=== PATIENT | male | born 1960 | race Caucasian/White ===

== ENCOUNTER 2020-08-07 12:53 | Emergency (ER) | payer OTHER, SELFPAY ==
[2020-08-07 13:14] VITALS: BP 170/100; PULSE 107; RESP 16; TEMP 36.7; O2SAT 97; BMI 29.3
--- NOTE | 2020-08-07 13:30 | XR_ITS ---
EXAMINATION: XR LUMBOSACRAL SPINE CLINICAL INFORMATION: Low back pain. COMPARISON: KUB of 07/04/2020, selected images of the abdomen and pelvic CT of 11/18/2019. TECHNIQUE: Three views of the lumbosacral spine. FINDINGS: There are 5 lumbar-type nonrib-bearing vertebrae. The vertebral body heights are maintained. Posterior fusion hardware at L5-S1 with intervertebral disc spacer is noted. There are 2 transpedicular screws at each level with vertical interlocking rods. The hardware is stable in appearance. No evidence of hardware loosening or fracture. Minimal posterior subluxation of L2 over L3 and of L3 or L4 is unchanged compared to last CT. Aortoiliac calcifications are noted. Maximum AP diameter of the calcified aorta at the level of L2 is 2.3 cm. Multilevel minimal anterior endplate hypertrophic spurring is noted. IMPRESSION: Stable postsurgical changes at L5-S1 without evidence of hardware loosening or hardware fracture. Minimal lumbar spondylosis at other levels. Vascular calcifications.
--- NOTE | 2020-08-07 13:37 | ED.BACK ---
HPI - Back Pain/Injury General Chief Complaint: Back Pain/Injury Stated Complaint: rt leg and back pain Time Seen by Provider: 08/07/20 13:30 Source: patient Mode of arrival: wheelchair Limitations: no limitations History of Present Illness HPI Narrative: 59 y/o with history of chronic back pain, history of laminectomy in 2009 presenting back to this ER with again worsening low back pain that started today. He was seen here on 07/17 for the same with the same descriptions of back locking up. He also reports acute onset of right calf pain and swelling and he has a history of DVT in the past. He is not on anticoagulation that he knows of. He denies trauma to either area. He has not taken anything for the pain. He states he is chronically prescribed oxy but it says it doesn't work. MD elicited complaint: back pain Pertinent past history: prior back pain and back surgery Onset (ago): day(s) (1) Timing: constant Severity: severe Similar Symptoms Previously: Yes Quality: sharp and aching Location: right lower back and left lower back Radiation: none Exacerbating factors: movement Relieving factors: none Associated symptoms: denies other symptoms Treatments prior to arrival: prescription analgesics Work related injury: No Related Data Previous Rx's Medication Instructions Recorded lisinopril 10 mg tablet 10 mg PO DAILY 90 Days #90 tab 08/02/20 oxycodone-acetaminophen 5 mg-325 1 tab PO Q8-12H PRN 15 Days #45 tab 08/02/20 mg tablet insulin lispro 100 unit/mL 3 - 4 unit SUBCUT TID 30 Days #6 ml 08/07/20 subcutaneous pen Allergies Allergy/AdvReac Type Severity Reaction Status Date / Time No Known Allergies Allergy Verified 08/07/20 13:16 [No Known Allergies*] nicotine AdvReac Unknown tachycardia, Verified 06/24/20 00:00 shaking N.K.D.A. Allergy Unknown Unknown Uncoded 08/07/20 13:16 Review of Systems Review of Systems: Constitutional: No Fever, No Chills Cardiovascular: No Chest Pain, No SOB Respiratory: No Cough, No Sputum, No Wheezing, No dyspnea Gastrointestinal: No Nausea, No Vomiting, No Diarrhea, No abdominal Pain Genitourinary: No Dysuria, No Urinary Frequency, No Hematuria, No incontinence Musculoskeletal: + joint pain, + Myalgias Skin: No Skin Lesions, No rash Neuro: No Weakness, No Numbness, No Dizziness, No Headache Psych: No Anxiety/Panic, No Depression Heme/Lymph: No Bruising, No Lymphadenopathy PMFSH Past Medical History Attestation statement: The following information was validated with the patient. Medical History Type 2 diabetes mellitus with diabetic polyneuropathy Social History Social History Advance Directives: No Advance Directives Information Provided: No Physical Exam Vital Signs: Vital Signs: Vital Signs Temp Pulse Resp BP Pulse Ox 08/07/20 13:14 98.0 F 107 H 16 170/100 H 97 Body Mass Index 29.3 Appearance: Alert. Oriented X3. No acute distress. HEENT: normal inspection CVS: Normal heart rate and rhythm. Pulses normal. Respiratory: No respiratory distress. Skin: Skin warm and dry. Normal skin color. Normal skin turgor. No rashes. Back: tender soft tissue area of bilateral lumbar area. no spinal tenderness. unable to test gait due to pain Extremities: right calf tenderness and mild edema of right RLE. +straight leg raise on the right Neuro: Oriented X 3. No motor deficit. No sensory deficit. Course Course Course Narrative: acute on chronic LBP without injury - seen at [facility] 08/02 and prescribed Percocet. He appears uncomfortable and exam is limited to due pain. Will give NSAID, tylenol, muscle relaxer and oxycodone now and reassess. Will also need to get RLE U/S to r/o DVT. Reevaluation(s) Reevaluation #1: patient all of the sudden reports he must leave immediately. Explained the importance of staying to find out the results of his U/S and X-ray. He states he has medications at home for his pain and he needs to go catch the buis now. Explained risk of DVT/PE and possible sudden . Patient left prior to d/c instructions being given. Discharge Plan Discharge Clinical Impression: Low back pain Qualifiers: Chronicity: acute Back pain laterality: bilateral Sciatica presence: without sciatica Qualified Code(s): M54.5 - Low back pain Patient Disposition: Left Against Medical Advice Instructions: Acute Low Back Pain (ED) Additional Instructions: You left against medical advice today. There is concern you may have a blood clot in your leg but you did not want to wait for the ultrasound results or the results of your X-rays. This could be life threatening and there is risk of with you leaving against medical advice. Take motrin and tylenol for pain/discomfort. Follow up with your doctor JAIME. You are welcome to come back to the ER for further evaluation of your pain Prescriptions: No Action lisinopril 10 mg tablet 10 mg PO DAILY 90 Days Qty: 90 RF: 0 oxycodone-acetaminophen [Percocet] 5-325 mg tablet 1 tab PO Q8-12H PRN (Reason: pain) 15 Days Qty: 45 RF: 0 insulin lispro [Admelog SoloStar U-100 Insulin] 100 unit/mL insulin pen 3 - 4 unit subcut TID 30 Days Qty: 6 RF: 0
[2020-08-07] MEDS: oxyCODONE HCl Immed Release 5 MG TABLET PO (13:40)
[2020-08-07] MEDS: Ketorolac Tromethamine 30 MG/ML VIAL IM (13:40)
[2020-08-07] MEDS: Acetaminophen 325 MG TABLET 975 MG PO (13:41)
[2020-08-07] MEDS: Cyclobenzaprine HCl 10 MG TABLET PO (13:41)
--- NOTE | 2020-08-07 14:37 | PC.NURSE ---
PT STATING HE WANTS TO LEAVE AND BE DISCHARGED. PT STATING WE ARE NOT DOING ANYTHING FOR HIM AND HE IS IN PAIN. PROVIDER NOTIFIED PT WANTS TO LEAVE AMA.
== END 2020-08-07 14:52 | disposition left against medical advice (07) ==
PROVIDERS: Emergency Provider Emergency Medicine; PCP Internal Medicine
DX: M54.5 Low back pain (principal); M54.9 Dorsalgia, unspecified; M79.604 Pain in right leg; Z79.899 Other long term (current) drug therapy
CPT/HCPCS: 72100; 96372; 99282; 99284; J1885

== ENCOUNTER 2020-09-23 12:27 | Outpatient (REF) | payer OTHER, SELFPAY ==
--- NOTE | 2020-09-23 12:34 | XR_ITS ---
EXAMINATION: XR PELVIS XR SI JOINTS, BILATERAL CLINICAL INFORMATION: Low back pain. COMPARISON: None TECHNIQUE: AP pelvis 1 view. Bilateral SI joints 3 views. FINDINGS: AP PELVIS: There is normal symmetry of bilateral hip joints and SI joints. No visible fracture involving the pelvic bones. There is L5 and S1 pedicular screws and interconnecting rods. There is likely L5-S1 disc prosthesis. BILATERAL SI JOINTS: The SI joint space is normal. No lytic or sclerotic process seen. The soft tissues are normal. XR/XR sacroiliac joint min 3V IMPRESSION: L5-S1 disc fusion with posterior hardware. Normal symmetry of SI joints and hip joints. No visible acute fracture or dislocation seen.
--- NOTE | 2020-09-23 12:34 | XR_ITS ---
EXAMINATION: XR PELVIS XR SI JOINTS, BILATERAL CLINICAL INFORMATION: Low back pain. COMPARISON: None TECHNIQUE: AP pelvis 1 view. Bilateral SI joints 3 views. FINDINGS: AP PELVIS: There is normal symmetry of bilateral hip joints and SI joints. No visible fracture involving the pelvic bones. There is L5 and S1 pedicular screws and interconnecting rods. There is likely L5-S1 disc prosthesis. BILATERAL SI JOINTS: The SI joint space is normal. No lytic or sclerotic process seen. The soft tissues are normal. XR/XR pelvis min 3V IMPRESSION: L5-S1 disc fusion with posterior hardware. Normal symmetry of SI joints and hip joints. No visible acute fracture or dislocation seen.
== END 2020-09-23 12:28 | disposition home or self-care (01) ==
LOC: HO.XRAY 12:27
PROVIDERS: PCP Internal Medicine; Visit Provider Internal Medicine
DX: M54.5 Low back pain (principal); R10.2 Pelvic and perineal pain
CPT/HCPCS: 72190; 72202

== ENCOUNTER 2020-10-21 13:58 | Outpatient (REF) | payer OTHER, SELFPAY | END 2020-10-21 13:59 | disposition home or self-care (01) | LOC: HO.LAB 13:58 | PROVIDERS: PCP Internal Medicine; Visit Provider Internal Medicine | DX: Z20.828 Contact with and (suspected) exposure to other viral communicable diseases (principal) | CPT/HCPCS: C9803; U0003 ==

== ENCOUNTER 2020-10-31 15:57 | Outpatient (REF) | payer OTHER, SELFPAY | END 2020-10-31 15:58 | disposition home or self-care (01) | LOC: HO.LAB 15:57 | PROVIDERS: Visit Provider Internal Medicine | DX: Z20.828 Contact with and (suspected) exposure to other viral communicable diseases (principal) | CPT/HCPCS: 36415; C9803; U0003 ==

== ENCOUNTER 2021-03-06 17:49 | Observation (INO) | payer OTHER, SELFPAY ==
--- NOTE | ~2021-03-06 | CT_ITS ---
EXAMINATION: CT ABDOMEN AND PELVIS WITHOUT CONTRAST CLINICAL INFORMATION: Fall with lower abdominal pain COMPARISON: 11/18/2019 TECHNIQUE: Multidetector volumetric imaging was performed from the superior aspect of the liver through the pubic symphysis. Sagittal and coronal reformatted images were obtained on the technologist's workstation. This CT examination was performed using dose optimization techniques as appropriate, variously including the following: *Automated exposure control *Adjustment of mA and/or kV according to patient size (this includes techniques or standardized protocols for targeted exams where dose is matched to indication/reason for exam; i.e. extremities or head) *Use of iterative reconstruction technique DLP: 642 mGy-cm FINDINGS: LUNG BASES: Lung bases are clear. Coronary artery calcifications are present. LIVER, GALLBLADDER, AND BILIARY TREE: The liver is normal in size, shape, and attenuation. No focal hepatic lesion or biliary ductal dilatation is present. The gallbladder is unremarkable with no evidence of radiopaque gallstones, gallbladder wall thickening, or obvious pericholecystic inflammatory changes. PANCREAS: Unremarkable. SPLEEN: Unremarkable. ADRENAL GLANDS: Unremarkable. KIDNEYS AND URETERS: The kidneys are normal in size, shape, and attenuation. Bilateral renal excretion associated with recent contrast-enhanced study. No hydronephrosis, hydroureter, or calculi seen. No perinephric stranding. Simple left renal cysts. The largest is seen at the midpole measuring 3.4 cm. No follow-up imaging recommended. BLADDER: Partially distended with no gross abnormality. GASTROINTESTINAL TRACT: The stomach is unremarkable. Normal caliber small bowel. There is no obstruction. Normal appendix. Scattered colonic diverticulosis. No diverticulitis. No colonic wall thickening or inflammation. No free air or free fluid. ABDOMINAL WALL: Small fat-containing left inguinal hernia. LYMPH NODES: Normal. VASCULAR: Normal caliber aorta with mild atherosclerotic calcification. PELVIC VISCERA: Enlarged prostate measuring 5.6 cm transverse. OSSEOUS STRUCTURES: No acute or suspicious osseous abnormality. Fusion at L5-S1. Mild degenerative changes of the spine. Vertebral body height and alignment is maintained. The pelvis is intact. No acute pelvic fracture. CT/CT abdomen pelvis wo con IMPRESSION: No acute traumatic findings in the abdomen or pelvis.
--- NOTE | ~2021-03-06 | CT_ITS ---
EXAMINATION: NONCONTRAST HEAD CT NONCONTRAST CERVICAL SPINE CT INDICATION INFORMATION: Fall COMPARISON: 01/18/2020 TECHNIQUE: Separate noncontrast CT examinations of the head and cervical spine were performed. Coronal and sagittal images were created for each examination at the technologist workstation. This CT examination was performed using dose optimization techniques as appropriate, variously including the following: *Automated exposure control *Adjustment of mA and/or kV according to patient size (this includes techniques or standardized protocols for targeted exams where dose is matched to indication/reason for exam; i.e. extremities or head) *Use of iterative reconstruction technique DLP: 1217 mGy-cm FINDINGS: Head: There is no evidence of acute intracranial hemorrhage or territorial infarction. No abnormal mass effect or midline shift is seen. Rondon to white matter differentiation is well preserved. No extra-axial fluid collections are identified. No hydrocephalus. Proportional prominence of the ventricles and sulcal spaces is consistent with mild volume loss. Patchy periventricular and deep white matter hypoattenuation is consistent with mild small vessel ischemic changes. No acute osseous or soft tissue abnormality. Small mucus retention cysts in both maxillary sinuses. The mastoid air cells and visualized portions of the paranasal sinuses are otherwise well aerated. Cervical spine: There is anatomic alignment of the vertebral bodies and posterior elements. The atlantoaxial and atlantooccipital articulations are intact. Vertebral body heights are maintained. Mild disc space narrowing at C5-C6 with small endplate osteophytes. No evidence of acute fracture. No prevertebral soft tissue swelling. Visualized portions of the lung apices are unremarkable. 1.6 cm hypoattenuating nodule in the left lobe of the thyroid gland. CT/CT cervical spine wo con IMPRESSION: 1. No acute intracranial finding. 2. No acute fracture or malalignment of the cervical spine. 3. 1.6 cm left thyroid lobe nodule. This can be further evaluated with nonemergent ultrasound.
--- NOTE | ~2021-03-06 | CT_ITS ---
EXAMINATION: CT ANGIOGRAM OF THE CHEST WITH AND WITHOUT CONTRAST (CT PULMONARY ANGIOGRAM FOR PE) CLINICAL INFORMATION: Reason for Exam chest pain with syncope COMPARISON: CTA chest 09/08/2019 TECHNIQUE: Prior to contrast administration, noncontrast localization images were obtained. Subsequently, multidetector volumetric imaging was performed from the thoracic inlet to below the diaphragms following the administration of 69 mL Omnipaque 350 intravenous contrast. No contrast reaction reported Sagittal, coronal, and MIP oblique sagittal reformatted images were obtained on the CT workstation, uploaded to PACS, and reviewed. This CT examination was performed using dose optimization techniques as appropriate, variously including the following: *Automated exposure control *Adjustment of mA and/or kV according to patient size (this includes techniques or standardized protocols for targeted exams where dose is matched to indication/reason for exam; i.e. extremities or head) *Use of iterative reconstruction technique Total exam dose-length product 346 mGy-cm FINDINGS: QUALITY OF STUDY/CONTRAST BOLUS: Suboptimal secondary to bolus as well as motion artifact. PULMONARY ARTERIES: There is a embolus present in a left lower lobe pulmonary artery 5 the posterior basal segment. No other definite emboli are seen. THORACIC AORTA: No aneurysm or dissection. LUNG: No focal consolidation, worrisome nodules or masses. Small pleural-based left upper lobe nodular density unchanged PLEURA: No pleural effusion or pneumothorax. MEDIASTINUM: Normal heart size. No pericardial effusion. No hilar or mediastinal lymphadenopathy. No evidence of septal bowing or right heart strain. CHEST WALL/AXILLA: No axillary or internal mammary lymphadenopathy. OSSEOUS STRUCTURES: No acute or suspicious osseous abnormality. UPPER ABDOMEN: Unremarkable. No reflux of contrast into the hepatic veins to suggest elevated right heart pressures. CT/CT angio chest PE protocol IMPRESSION: Left lower lobe pulmonary emboli VTE: positive An attempt will be made to contact the referring clinician with the results and when this has been done, an addendum will be issued.
[2021-03-06 18:13] VITALS: BP 155/72; PULSE 77; RESP 16; TEMP 36.9; O2SAT 98; BMI 28.0
[2021-03-06 18:20] VITALS: BP 155/72; PULSE 75; RESP 16; TEMP 36.6; O2SAT 98
--- NOTE | 2021-03-06 18:27 | ED_ITS ---
HPI - Syncope General Chief Complaint: Syncope Stated Complaint: syncope/chest discomfort Time Seen by Provider: 03/06/21 18:27 Source: patient Mode of arrival: EMS Limitations: no limitations History of Present Illness HPI narrative: Patient had a syncopal event. Patient took 3 NTG with chest pain and he passed out, no fecal or urinary incontinence MD complaint: loss of consciousness Onset (ago): minute(s) Prodromal symptoms: chest pain Context: standing up Injuries sustained associated with event: none Treatments prior to arrival: other (Patient took ASA and Ntg prior to arrival) Related Data Home Medications Medication Instructions Recorded Confirmed atorvastatin 40 mg tablet 40 mg PO BEDTIME 10/15/20 03/06/21 albuterol sulfate 2 puff INHALATION Q6H PRN 03/06/21 03/06/21 insulin glargine [Lantus Solostar 50 unit SUBCUT BEDTIME 03/06/21 03/06/21 U-100 Insulin] insulin lispro [Admelog SoloStar 0 unit SUBCUT TIDAC 03/06/21 03/06/21 U-100 Insulin] omeprazole 40 mg PO BID 03/06/21 03/06/21 oxycodone-acetaminophen 1 tab PO Q4H PRN 03/06/21 03/06/21 quetiapine 200 mg PO BEDTIME 03/06/21 03/06/21 Previous Rx's Medication Instructions Recorded metoprolol succinate 100 mg 100 mg PO DAILY #30 tab 08/28/20 tablet,extended release 24 hr nitroglycerin 0.4 mg sublingual 0.4 mg SUBLINGUAL Q5M PRN #10 tab 10/28/20 tablet blood sugar diagnostic #120 ea 12/11/20 lancets 28 gauge #100 ea 12/13/20 apixaban 5 mg tablet 5 mg PO BID #60 tab 01/03/21 aspirin 81 mg tablet,delayed 81 mg PO DAILY 90 Days #90 tab 02/17/21 release lisinopril 10 mg tablet 10 mg PO DAILY 90 Days #90 tab 02/17/21 Allergies Allergy/AdvReac Type Severity Reaction Status Date / Time nicotine AdvReac Unknown tachycardia, Verified 02/17/21 12:00 shaking Review of Systems Constitutional: Constitutional: Reports no additional constitutional complaints Eyes: Eyes: Reports no additional eye complaints ENT: Denies dizziness Cardiovascular: Cardiovascular: Reports no additional cardiovascular complaints Respiratory: Respiratory: Reports as per HPI Gastrointestinal: Gastrointestinal: Reports no additional gastrointestinal complaints Musculoskeletal: Musculoskeletal: Reports no additional musculoskeletal complaints Integumentary/Breasts: Skin/Breast: Denies rash Neurologic: Reports system reviewed and no additional complaints, except as documented, Denies dizziness and Denies Sensory deficit (Neuro) Psychiatric: Psychiatric: Denies anxiety [facility] Past Medical History Medical History Anxiety Benign essential hypertension CAD (coronary artery disease) Chest pain Deep vein thrombosis (DVT) of right lower extremity Depression Essential hypertension GERD (gastroesophageal reflux disease) Hx pulmonary embolism Hyperlipidemia LDL goal <100 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 COVID-19 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 Low back pain Lumbar degenerative disc disease Obesity (BMI 30-39.9) Onychomycosis Pelvic pain in male Proteinuria Pure hypercholesterolemia PVD (peripheral vascular disease) Sleep apnea Smoker 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 Surgical History H/O colonoscopy History of ankle surgery History of arthroplasty of left knee History of esophagogastroduodenoscopy (EGD) History of heart artery stent History of inguinal hernia repair History of knee surgery History of lumbar surgery Hx of cataract surgery Family History Family History Father Cancer Mother Diabetes Social History Social History Alcohol intake: never Smoking Status: Current every day smoker Tobacco Type: Cigarette Cigarettes Per Day: 15 Use of substances other than those prescribed or required for medical reasons: No Advance Directives: No Advance Directives Information Provided: No Physical Exam Vital Signs: Vital Signs: Last Vital Signs Temp 98 F 03/06/21 18:20 Pulse 68 03/06/21 19:51 Resp 20 03/06/21 19:51 BP 123/59 L 03/06/21 19:51 Pulse Ox 100 03/06/21 19:51 Body Mass Index 28.0 Const: General: healthy appearing Nutritional Appearance: average body habitus Orientation/consciousness: oriented to person and patient oriented x3 Limitations: no limitations HENMT: Head: Yes normal to inspection Ears: external ears normal General nose exam: Normal external nose present Mouth: Normal oral and palatal mucosa present and oropharynx normal Throat: Yes posterior oropharynx normal Eyes: General: appearance normal, both eyes and all related structures Neck: Other: supple Neck: Yes normal visual inspection Chest: Chest palpation & inspection: normal inspection of the chest Resp: Auscultation: clear to auscultation bilaterally Cardio: Jugular venous distension: no JVD Rate: regular rate Rhythm: regular rhythm Heart sounds: S1 normal heart sound present and S2 normal heart sound present GI: Inspection: Yes normal to inspection Palpation (GI): Soft to palpation, nontender and No hepatosplenomegaly present Auscultation: normal bowel sounds : General: Yes no CVA tenderness Back/Spine/Pelvis: Back: no CVA tenderness Skin: General skin exam: no rashes or lesions noted Neuro: General: oriented to person and patient oriented x3 Cranial nerves: Yes CN's II-XII intact bilaterally Motor exam (neuro): 5/5 motor strength present throughout Sensory Exam: No Sensory deficit (Neuro) Extrem: General: Yes normal to inspection Psych: Appearance: grossly normal Course Course Course Narrative: discussed with hospitalist will obtain chest CT for prior DVT PE. will admit to telemetry Reevaluation(s) Reevaluation #1: Patient positive for PE, will give lovenox Time: 22:35 MDM - Syncope MDM Narrative Medical decision making narrative: chest pain with CAD, HTN DM with chest pain and syncope with bring in for cardiac work up and rule out PE Lab Data Result diagrams: 03/06/21 18:57 03/06/21 18:57 Labs: Lab Results 03/06/21 03/06/21 03/06/21 Range/Units 18:57 18:57 18:57 WBC 9.0 (4.8-10.8) X10*3/uL RBC 3.72 L (4.60-5.80) X10*6/uL Hgb 10.7 L (14.0-18.0) g/dl Hct 32.2 L (42-52) % MCV 86.6 (80-98) fL MCH 28.8 (27.0-33.0) pg MCHC 33.2 (31.0-36.0) g/dl RDW 13.3 (11.0-16.0) % Plt Count 269 (160-400) X10*3/uL MPV 9.7 (9.4-12.4) fL Immature Gran % (Auto) 0.3 (0.0-0.4) % Neut % (Auto) 71.3 (45-73) % Lymph % (Auto) 19.1 L (20-40) % [place] % (Auto) 8.0 (2-11) % Eos % (Auto) 1.1 (0-4) % Baso % (Auto) 0.2 (0-2) % Lymph # (Auto) 1.7 (1.2-4.9) X10*3/uL [place] # (Auto) 0.7 (0.1-1.2) X10*3/uL Eos # (Auto) 0.1 (0.0-0.4) X10*3/uL Baso # (Auto) 0.0 (0.0-0.2) X10*3/uL Abs Immat Gran (auto) 0.03 (0.00-0.03) X10*3/uL Absolute Neuts (auto) 6.4 (2.0-8.3) X10*3/uL Absolute Nucleated RBC 0.000 (0.0-0.012) X10*3/uL Nucleated RBC % (auto) 0.0 (0.0-0.2) /100WBC Sodium 137 (135-145) mmol/L Potassium 3.8 (3.3-5.1) mmol/L Chloride 101 (96-108) mmol/L Carbon Dioxide 26 (22-29) mmol/L Anion Gap 14 (12-20) BUN 9 (9-16) mg/dL Creatinine 1.18 (0.5-1.4) mg/dL Estim Creat Clear Calc 73.3 Estimated GFR > 60 Random Glucose 149 H (60-115) mg/dL Calcium 8.7 (8.4-10.2) mg/dL Troponin I High Sens 4.7 (<3.5-35.0) ng/L COVID-19 (LILI) (Negative) COVID-19 Clin Com 03/06/21 03/06/21 Range/Units 20:39 21:38 WBC (4.8-10.8) X10*3/uL RBC (4.60-5.80) X10*6/uL Hgb (14.0-18.0) g/dl Hct (42-52) % MCV (80-98) fL MCH (27.0-33.0) pg MCHC (31.0-36.0) g/dl RDW (11.0-16.0) % Plt Count (160-400) X10*3/uL MPV (9.4-12.4) fL Immature Gran % (Auto) (0.0-0.4) % Neut % (Auto) (45-73) % Lymph % (Auto) (20-40) % [place] % (Auto) (2-11) % Eos % (Auto) (0-4) % Baso % (Auto) (0-2) % Lymph # (Auto) (1.2-4.9) X10*3/uL [place] # (Auto) (0.1-1.2) X10*3/uL Eos # (Auto) (0.0-0.4) X10*3/uL Baso # (Auto) (0.0-0.2) X10*3/uL Abs Immat Gran (auto) (0.00-0.03) X10*3/uL Absolute Neuts (auto) (2.0-8.3) X10*3/uL Absolute Nucleated RBC (0.0-0.012) X10*3/uL Nucleated RBC % (auto) (0.0-0.2) /100WBC Sodium (135-145) mmol/L Potassium (3.3-5.1) mmol/L Chloride (96-108) mmol/L Carbon Dioxide (22-29) mmol/L Anion Gap (12-20) BUN (9-16) mg/dL Creatinine (0.5-1.4) mg/dL Estim Creat Clear Calc Estimated GFR Random Glucose (60-115) mg/dL Calcium (8.4-10.2) mg/dL Troponin I High Sens 4.2 (<3.5-35.0) ng/L COVID-19 (LILI) Negative (Negative) COVID-19 Clin Com See Note Imaging Data CT scan - chest: Radiologist's impression: left lower PE ECG Data Attestation: I personally reviewed and interpreted this ECG as follows: Interpretation: Normal sinus rate 70, no st or twave changes Critical Care Time Critical Care Time Attestation: I spent 40 minutes of critical care, with interventions, assessments, speaking to patient, consultants, and family. Discharge Plan Discharge Clinical Impression: CAD (coronary artery disease), Pulmonary embolism Patient Disposition: Admitted As Inpatient
--- NOTE | 2021-03-06 18:29 | ECG_ITS ---
Test Reason : CHEST PAIN Blood Pressure : / mmHG Vent. Rate : 073 BPM Atrial Rate : 073 BPM P-R Int : 162 ms QRS Dur : 080 ms QT Int : 378 ms P-R-T Axes : 040 -37 -07 degrees QTc Int : 416 ms Normal sinus rhythm Left axis deviation Moderate voltage criteria for LVH, may be normal variant Nonspecific T wave abnormality Abnormal ECG When compared with ECG of 09-APR-2020 02:13, Borderline criteria for Lateral infarct are no longer Present T wave inversion now evident in Inferior leads QT has shortened Referred By: Jax Wilson Electronically Signed By:JONO SAMUEL MD
[2021-03-06] MEDS: Nitroglycerin 2 % Oint 1 GM Packet 1 INCH TRANSDERMA (19:01)
[2021-03-06 19:05] LABS: MANUAL DIFF FLAG NO
[2021-03-06 19:09] LABS: Basophils Percent Auto 0.2 % (0-2); Eosinophils Absolute Auto 0.1 X10*3/uL (0.0-0.4); Eosinophils Percent Auto 1.1 % (0-4); Hematocrit 32.2 % (42-52); Hemoglobin 10.7 g/dl (14.0-18.0); Imm Gran Abs Auto 0.03 X10*3/uL (0.00-0.03); Imm Gran Pct Auto 0.3 % (0.0-0.4); Lymphocytes Absolute Auto 1.7 X10*3/uL (1.2-4.9); Lymphocytes Percent Auto 19.1 % (20-40); Mean Corpuscular HGB Conc 33.2 g/dl (31.0-36.0); Mean Corpuscular Hemoglobin 28.8 pg (27.0-33.0); Mean Corpuscular Volume 86.6 fL (80-98); Mean Platelet Volume 9.7 fL (9.4-12.4); Monocytes Absolute Auto 0.7 X10*3/uL (0.1-1.2); Neutrophils Absolute Auto 6.4 X10*3/uL (2.0-8.3); Neutrophils Percent Auto 71.3 % (45-73); Platelet Count 269 X10*3/uL (160-400); Red Blood Count 3.72 X10*6/uL (4.60-5.80); Red Cell Distribution Width 13.3 % (11.0-16.0)
[2021-03-06 19:37] LABS: Anion Gap 14 (12-20); Blood Urea Nitrogen 9 mg/dL (9-16); Calcium 8.7 mg/dL (8.4-10.2); Carbon Dioxide 26 mmol/L (22-29); Chloride 101 mmol/L (96-108); Creatinine Clr Calc Pharmacy 73.3; Estimated Glomerular Filt Rate > 60; Glucose Random 149 mg/dL (60-115); Potassium 3.8 mmol/L (3.3-5.1); Sodium 137 mmol/L (135-145)
[2021-03-06 19:44] LABS: Troponin-I High Sensitivity 4.7 ng/L (<3.5-35.0)
[2021-03-06 19:51] VITALS: BP 123/59; PULSE 68; RESP 20; O2SAT 100
[2021-03-06 21:04] LABS: COVID-19 Test Negative (Negative)
[2021-03-06] MEDS: Ketorolac Tromethamine 15 MG/ML VIAL IVPUSH (21:08)
[2021-03-06] MEDS: iohexoL 350 MG/ML 100 ML INFUS..BTL IV (21:37)
--- NOTE | 2021-03-06 21:44 | P.HPHOSP_ITS ---
History of Present Illness Date of Service: 03/06/21 Chief Complaint: chest pain 60-year-old male a past medical history of hypertension, hyperlipidemia, diabetes, coronary artery disease, history of DVT/PE anticoagulation, peripheral vascular disease, history of chronic back pain/chronic lumbar degenerative disc disease; anxiety, depression presented to the hospital today with a chief complaint of chest pain. Patient reported that he had chest pain located in the center with tight in nature no associated nausea subsequently took sublingual nitroglycerin 3 tablets followed by he had a syncopal event. Denies any seizure-like activity. Denies any lightheadedness or dizziness. Denies any numbness tingling. At the time of my interview patient denies any chest pain. Review of all other systems is negative except mentioned above ER course: Per ER team patient's EKG was nonischemic, troponin negative. CT angio chest was pending. Exam was nonfocal. Given aspirin. Admitted to the hospital for further management. 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 Family History Father Cancer Mother Diabetes Surgical History H/O colonoscopy History of ankle surgery History of arthroplasty of left knee History of esophagogastroduodenoscopy (EGD) History of heart artery stent History of inguinal hernia repair History of knee surgery History of lumbar surgery Hx of cataract surgery Social History (Updated 03/17/21 @ 10:27 by Anitha Rios) Alcohol intake: current Alcohol intake frequency: holidays/special occasions only Alcohol type: beer Smoking Status: Current every day smoker Tobacco Type: Cigarette Years Smoked: 45 Smoked in Last 30 Days: Yes Use of substances other than those prescribed or required for medical reasons: No Advance Directives: Yes Advance Directives on File: Yes Advance Directives Date on File: 03/07/21 service: No Current occupational status: unemployed Meds Allergies Allergy/AdvReac Type Severity Reaction Status Date / Time nicotine AdvReac Unknown tachycardia, Verified 03/17/21 14:21 shaking Active Medications: Current Medications Generic Name Dose Route Start Last Admin Trade Name Freq PRN Reason Stop Dose Admin Acetaminophen 650 mg 03/06/21 21:42 Acetaminophen 325 Mg Tablet PO Q6H PRN Pain, Mild (Pain Scale 1-3) Albuterol/Ipratropium 3 ml 03/07/21 08:00 Albuterol/Iprat 2.5/0.5mg 3 Ml Ampul.Neb INHALE RQ4H WHILE AWAKE SUSANNAH Magnesium Hydroxide 30 ml 03/06/21 21:42 Milk Of Magnesia 30 Ml Oral.Susp PO DAILY PRN Constipation Nitroglycerin 0.4 mg 03/06/21 21:42 Nitroglycerin 0.4 Mg Tab.Subl SUBLINGUAL Q5M PRN Chest Pain Sodium Chloride 3 ml 03/07/21 00:00 0.9 % Sodium Chloride Flush 3 Ml Syringe IVFLUSH QSHIFT [facility] Home Medications Medication Instructions Recorded Confirmed Last Taken Type atorvastatin 40 mg tablet 40 mg PO BEDTIME 10/15/20 03/17/21 Unknown History Lantus Solostar U-100 Insulin 50 unit SUBCUT BEDTIME 03/06/21 03/17/21 03/05/21 History albuterol sulfate 2 puff INHALATION Q6H PRN 03/06/21 03/17/21 Unknown History insulin lispro [Admelog SoloStar 0 unit SUBCUT TIDAC 03/06/21 03/17/21 Unknown History U-100 Insulin] omeprazole 40 mg PO BID 03/06/21 03/17/21 Unknown History quetiapine 200 mg PO BEDTIME 03/06/21 03/17/21 Unknown History apixaban 5 mg tablet 5 mg PO BID 03/12/21 03/17/21 Unknown History Physical Exam Vital Signs and Narrative: Vital Signs: Last Vital Signs Temp 98 F 03/06/21 18:20 Pulse 68 03/06/21 19:51 Resp 20 03/06/21 19:51 BP 123/59 L 03/06/21 19:51 Pulse Ox 100 03/06/21 19:51 Body Mass Index 28.0 Gen: Appears be in no acute distress HEENT: NCAT, Moist mucosa. Pulmonary: Vesicular breath sounds, fair air entry CVS: Normal S1-S2 Abdomen: BS+, Soft, Nontender Extremities: Warm well perfused Neuro: Alert and awake. Results Labs CBC and Chem 7: 03/07/21 05:07 03/07/21 05:07 Labs: Laboratory Results - last 24 hr 03/06/21 03/06/21 03/06/21 18:57 18:57 18:57 MCV 86.6 MCH 28.8 MCHC 33.2 RDW 13.3 Plt Count 269 MPV 9.7 Immature Gran % (Auto) 0.3 Neut % (Auto) 71.3 Lymph % (Auto) 19.1 L [place] % (Auto) 8.0 Eos % (Auto) 1.1 Baso % (Auto) 0.2 Lymph # (Auto) 1.7 [place] # (Auto) 0.7 Eos # (Auto) 0.1 Baso # (Auto) 0.0 Abs Immat Gran (auto) 0.03 Absolute Neuts (auto) 6.4 Absolute Nucleated RBC 0.000 Nucleated RBC % (auto) 0.0 Anion Gap 14 Estim Creat Clear Calc 73.3 Estimated GFR > 60 Random Glucose 149 H Calcium 8.7 Troponin I High Sens 4.7 COVID-19 (LILI) COVID-19 Clin Com 03/06/21 20:39 MCV MCH MCHC RDW Plt Count MPV Immature Gran % (Auto) Neut % (Auto) Lymph % (Auto) [place] % (Auto) Eos % (Auto) Baso % (Auto) Lymph # (Auto) [place] # (Auto) Eos # (Auto) Baso # (Auto) Abs Immat Gran (auto) Absolute Neuts (auto) Absolute Nucleated RBC Nucleated RBC % (auto) Anion Gap Estim Creat Clear Calc Estimated GFR Random Glucose Calcium Troponin I High Sens COVID-19 (LILI) Negative COVID-19 Clin Com See Note Assessment and Plan (1) Chest pain: Status: Resolved 60-year-old male with a past medical history of hypertension, hyperlipidemia, diabetes, coronary artery disease status post stents, tobacco dependence, peripheral vascular disease, history of DVT/PE, anxiety, depression, GERD presented to the hospital with a chief complaint of chest pain/syncope. Chest pain: Currently improved. EKG nonischemic. Initial troponin negative. Second troponin pending. Echocardiogram. Cardiology consult. Syncope: Likely vasovagal versus secondary to hypertension upper sublingual nitroglycerin. Orthostatic vitals. Nonfocal examination. Fall precautions. Cardiology consulted as mentioned. Fall: pt reportas that he fell on floor when syncopized; karen obtian CT head, Ct c spine and also CT abd- as complaining of lower abd pain. History of diabetes: Insulin sliding scale. History of hypertension/hyperlipidemia/CAD: Continue home medications. History of DVT: pt was on Eliquis. No CT chest showed left lower lobe PE; s/w Lovenox; Hematology consult for choice of therapy. All other chronic conditions, home medications will be continued once med rec is done. DVT prophylaxis: Patient on lovenox Code status: Full code
[2021-03-06 22:17] LABS: Troponin-I High Sensitivity 4.2 ng/L (<3.5-35.0)
--- NOTE | 2021-03-06 22:52 | PC.NURSE ---
PT REFUSING VITAL SIGNS AND MEDICATIONS, PT COMBATIVE WITH NURSING STAFF. NURSING STAFF EDUCATED PT ON THE IMPORTANCE OF REGULAR MONITORING AND MEDICATIONS. PT TOLD RN TO GET THE HELL OUT OF HIS ROOM
[2021-03-06 23:44] LABS: Partial Thromboplastin Time 37.3 SEC (24.1-38.0)
[2021-03-07] VITALS (12 sets, daily range): BP systolic 140–208; BP diastolic 60–91; PULSE 56–72; RESP 16–20; TEMP 36.5–36.6; O2SAT 95–99; BMI 29.2
--- NOTE | 2021-03-07 | ECG_ITS ---
Test Reason : RUCOOKIEE JOSH Blood Pressure : / mmHG Vent. Rate : 058 BPM Atrial Rate : 058 BPM P-R Int : 166 ms QRS Dur : 082 ms QT Int : 416 ms P-R-T Axes : 040 -30 -18 degrees QTc Int : 408 ms Sinus bradycardia Left axis deviation Minimal voltage criteria for LVH, may be normal variant Nonspecific T wave abnormality Abnormal ECG When compared with ECG of 06-MAR-2021 18:51, No significant change was found Referred By: Jax Wilson Electronically Signed By:JONO SAMUEL MD
--- NOTE | 2021-03-07 01:14 | PC.NURSE ---
PT STILL REFUSING VITAL SIGNS, RUDE AND AGGRESSIVE TOWARD STAFF WHENEVER RN ATTEMPTS TO TREAT OR ASSESS PT. PT REFUSING EDUCATION, NOT COOPERATIVE, REFUSES TO STAY IN BED, REFUSES ASSISTANCE WHILE AMBULATING.
[2021-03-07] MEDS: Enoxaparin Sodium 100 MG/ML SYRINGE 85 MG SUBCUT ×3 (02:47→23:08)
[2021-03-07] MEDS: Morphine Sulfate 2 MG/ML CARTRIDGE 1 MG IVPUSH ×4 (02:47→20:41)
[2021-03-07] MEDS: HYDROmorphone HCl 0.5 MG/0.5 ML SYRINGE IVPUSH (04:54)
[2021-03-07 04:58] LABS: Glucose, Whole Blood 262 mg/dL (60-115)
[2021-03-07] MEDS: Insulin Lispro 100 UNIT/ML 3 ML VIAL SUBCUT ×4 (05:06→20:47)
--- NOTE | 2021-03-07 05:07 | PC.NURSE ---
pt awake and asking for pain medication for his abdomen. hospitalist called and aware, ordered medication and wants ct of neck and abdomen. pt agreed to change into hospital clothing. also brought a hospital bed for comfort, pt has back pain from er matress.
[2021-03-07 05:13] LABS: MANUAL DIFF FLAG NO
[2021-03-07 05:16] LABS: Basophils Percent Auto 0.1 % (0-2); Eosinophils Absolute Auto 0.1 X10*3/uL (0.0-0.4); Eosinophils Percent Auto 1.6 % (0-4); Hematocrit 32.2 % (42-52); Hemoglobin 10.7 g/dl (14.0-18.0); Imm Gran Abs Auto 0.04 X10*3/uL (0.00-0.03); Imm Gran Pct Auto 0.5 % (0.0-0.4); Lymphocytes Percent Auto 22.1 % (20-40); Mean Corpuscular HGB Conc 33.2 g/dl (31.0-36.0); Mean Corpuscular Hemoglobin 28.5 pg (27.0-33.0); Mean Corpuscular Volume 85.6 fL (80-98); Mean Platelet Volume 9.5 fL (9.4-12.4); Monocytes Absolute Auto 0.7 X10*3/uL (0.1-1.2); Monocytes Percent Auto 8.3 % (2-11); Neutrophils Percent Auto 67.4 % (45-73); Platelet Count 264 X10*3/uL (160-400); Red Blood Count 3.76 X10*6/uL (4.60-5.80); Red Cell Distribution Width 13.2 % (11.0-16.0); White Blood Count 8.9 X10*3/uL (4.8-10.8)
[2021-03-07 05:40] LABS: Anion Gap 13 (12-20); Blood Urea Nitrogen 11 mg/dL (9-16); Calcium 8.6 mg/dL (8.4-10.2); Carbon Dioxide 26 mmol/L (22-29); Chloride 99 mmol/L (96-108); Estimated Glomerular Filt Rate 54; Glucose Random 285 mg/dL (60-115); Potassium 3.9 mmol/L (3.3-5.1); Sodium 134 mmol/L (135-145)
[2021-03-07 05:45] LABS: Troponin-I High Sensitivity 4.6 ng/L (<3.5-35.0)
--- NOTE | 2021-03-07 07:45 | PC.NURSE ---
pt given morphine on previous shift at 0247, pt stated he had some effectiveness so hydromorphone was given at 0454, pt stated his is comfortable at this time
[2021-03-07 08:42] LABS: Glucose, Whole Blood 213 mg/dL (60-115)
[2021-03-07] MEDS: Aspirin Enteric Coated 81 MG TABLET.DR PO (08:50)
[2021-03-07] MEDS: Metoprolol Succinate ER 100 MG TAB.ER.24H PO (08:50)
[2021-03-07] MEDS: Omeprazole 40 MG CAPSULE.DR PO ×2 (08:50→20:31)
[2021-03-07] MEDS: lisinopriL 10 MG TABLET PO ×2 (08:52→14:02)
--- NOTE | 2021-03-07 09:12 | P.CNHO_ITS ---
Subjective - Subjective Chief complaint: Consult for left lower lobe PE. History of DVT Patient: new to practice Consult date: 03/07/21 Requesting Physician: Juan. Primary Care Provider: Cecilio De Paz MD Medical Summary: DIAGNOSIS: LEFT LOWER LOBE PE. HISTORY OF DVT. HPI - Consult Narrative Reason for consult: Consult for left lower lobe PE. History of DVT. Narrative: Matty Smith SR is a pleasant 60 year old gentleman, presented to the hospital today with a chief complaint of chest pain. Patient reported that he had chest pain located in the center with tight in nature no associated nausea subsequently took sublingual nitroglycerin 3 tablets followed by he had a syncopal event. Denies any seizure-like activity. Denies any lightheadedness or dizziness. Denies any numbness tingling. At the time of my interview patient denies any chest pain. Review of all other systems is negative except mentioned above Exam was nonfocal. Given aspirin. ER course: Per ER team patient's EKG was nonischemic, troponin negative. CT angio chest: Left lower lobe pulmonary emboli. PMFSH: 1. Hypertension. 2. Hyperlipidemia. 3. Diabetes. 4. Coronary artery disease. 5. History of DVT/PE anticoagulation. 6. Peripheral vascular disease. 7. History of chronic back pain/chronic lumbar degenerative disc disease. 8. Anxiety and depression. ROS: He does feel rather fatigued. No fever nor chills. Appetite is fair. Weight is stable. Denies headache no dizziness. He had some chest pain. That is resolved. Denies abdominal pain nausea vomiting heartburn indigestion. Bowels are working without any gross blood in it. No dysuria or hematuria. He has some joint pains. Denies any focal weakness. Denies depression. Review of Systems - Constitutional Reports system reviewed and no additional complaints, except as documented - Eyes Reports system reviewed and no additional complaints, except as documented - ENT Reports system reviewed and no additional complaints, except as documented - Cardiovascular Reports system reviewed and no additional complaints, except as documented, Reports chest pain - Respiratory Reports no additional respiratory complaints - Gastrointestinal Reports system reviewed and no additional complaints, except as documented - Genitourinary Genitourinary: Reports no additional male genitourinary complaints - Musculoskeletal Reports system reviewed and no additional complaints, except as documented - Integumentary/Breasts Skin/Breast: Reports no additional skin complaints - Neurologic Reports system reviewed and no additional complaints, except as documented, Denies dizziness, Denies sensory deficit - Psychiatric Reports system reviewed and no additional complaints, except as documented - Endocrine Reports no additional endocrine complaints - Hematologic/Lymphatic Reports system reviewed and no additional complaints, except as documented - Allergic/Immunologic Reports system reviewed and no additional complaints, except as documented Oncology Screenings - ECOG Performance Status ECOG Performance Status: 0 [facility] Medical History: Medical History (Last Reviewed 03/07/21 @ 13:28 by Carol Butler RN) Anxiety Benign essential hypertension CAD (coronary artery disease) Chest pain Deep vein thrombosis (DVT) of right lower extremity Depression Essential hypertension GERD (gastroesophageal reflux disease) Hx pulmonary embolism Hyperlipidemia LDL goal <100 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 COVID-19 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 Low back pain Lumbar degenerative disc disease Obesity (BMI 30-39.9) Onychomycosis Pelvic pain in male Proteinuria Pure hypercholesterolemia PVD (peripheral vascular disease) Sleep apnea Smoker 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 Family History: Family History (Last Reviewed 03/06/21 @ 18:31 by Desmond Leigh MD) Father Cancer Mother Diabetes Surgical History: Surgical History (Last Reviewed 03/07/21 @ 13:28 by Carol Butler RN) H/O colonoscopy History of ankle surgery History of arthroplasty of left knee History of esophagogastroduodenoscopy (EGD) History of heart artery stent History of inguinal hernia repair History of knee surgery History of lumbar surgery Hx of cataract surgery Social History: Social History (Last Reviewed 03/06/21 @ 18:31 by Desmond Leigh MD) Alcohol History: Alcohol intake: never Tobacco History: Smoking Status: Current every day smoker Tobacco Type: Cigarette Advance Directives: Advance Directives Date on File: 03/07/21 Occupation Assessmet: service: No Current occupational status: unemployed Smoking status: Current every day smoker Home Medications and Allergies Current Medications: Current Medications Generic Name Dose Route Start Last Admin Trade Name Freq PRN Reason Stop Dose Admin Acetaminophen 650 mg 03/06/21 21:42 Acetaminophen 325 Mg Tablet PO Q6H PRN Pain, Mild (Pain Scale 1-3) Albuterol Sulfate 2 puff 03/07/21 02:23 Albuterol Sulfate 90 Mcg 8 Gm Inhaler INHALE Q6H PRN Respiratory Distress Albuterol/Ipratropium 3 ml 03/07/21 08:00 Albuterol/Iprat 2.5/0.5mg 3 Ml Ampul.Neb INHALE RQ4H WHILE AWAKE [facility] Aspirin 81 mg 03/07/21 09:00 03/07/21 08:50 Aspirin Enteric Coated 81 Mg Tablet. PO 81 mg DAILY [facility] Administration Enoxaparin Sodium 85 mg 03/06/21 23:00 03/07/21 02:47 Enoxaparin Sodium 100 Mg/Ml Syringe 1 mg/kg (85 mg) 85 mg SUBCUT Administration Q12H [facility] Insulin Glargine 30 unit 03/07/21 21:00 Insulin Glargine,Hum.Rec.Anlog 100 Unit/Ml 10 Ml Vial SUBCUT BEDTIME [facility] Insulin Human Lispro 0 unit 03/07/21 07:30 03/07/21 05:06 Insulin Lispro 100 Unit/Ml 3 Ml Vial SUBCUT 6 unit QIDACHS [facility] Administration Protocol Lisinopril 10 mg 03/07/21 09:00 03/07/21 08:52 Lisinopril 10 Mg Tablet PO 10 mg DAILY [facility] Administration Protocol Magnesium Hydroxide 30 ml 03/06/21 21:42 Milk Of Magnesia 30 Ml Oral.Susp PO DAILY PRN Constipation Metoprolol Succinate 100 mg 03/07/21 09:00 03/07/21 08:50 Metoprolol Succinate Er 100 Mg Tab.Er.24h PO 100 mg DAILY [facility] Administration Protocol Morphine Sulfate 1 mg 03/07/21 02:18 03/07/21 02:47 Morphine Sulfate 2 Mg/Ml Cartridge IVPUSH 1 mg Q4H PRN Administration Chest Pain Nitroglycerin 0.4 mg 03/06/21 21:42 Nitroglycerin 0.4 Mg Tab.Subl SUBLINGUAL Q5M PRN Chest Pain Omeprazole 40 mg 03/07/21 09:00 03/07/21 08:50 Omeprazole 40 Mg Capsule. PO 40 mg BID [facility] Administration Pharmacy Consult 1 each 03/06/21 22:00 Consult Rx Perform Med Rec MISCELLANE ONCE PRN Consult order Quetiapine Fumarate 200 mg 03/07/21 21:00 Quetiapine Fumarate 200 Mg Tablet PO BEDTIME [facility] Sodium Chloride 3 ml 03/07/21 00:00 03/07/21 01:16 0.9 % Sodium Chloride Flush 3 Ml Syringe IVFLUSH Not Given QSHIFT [facility] Home Medications Medication Instructions Recorded Confirmed Type atorvastatin 40 mg tablet 40 mg PO BEDTIME 10/15/20 03/06/21 History Lantus Solostar U-100 Insulin 50 unit SUBCUT BEDTIME 03/06/21 03/06/21 History albuterol sulfate 2 puff INHALATION Q6H PRN 03/06/21 03/06/21 History insulin lispro [Admelog SoloStar 0 unit SUBCUT TIDAC 03/06/21 03/06/21 History U-100 Insulin] omeprazole 40 mg PO BID 03/06/21 03/06/21 History oxycodone-acetaminophen 1 tab PO Q4H PRN 03/06/21 03/06/21 History quetiapine 200 mg PO BEDTIME 03/06/21 03/06/21 History Allergies Allergy/AdvReac Type Severity Reaction Status Date / Time nicotine AdvReac Unknown tachycardia, Verified 02/17/21 12:00 shaking Physical Exam Vital signs: Vital Signs Temp 98 F 03/06/21 18:20 Pulse 72 03/07/21 08:52 Resp 16 03/07/21 04:59 BP 160/81 H 03/07/21 08:52 Pulse Ox 96 03/07/21 04:59 Intake & Output 03/06/21 03/07/21 03/07/21 18:59 06:59 18:59 Other: Weight 86.183 kg Weight 86.183 kg - Constitutional Present: mild distress - Routine HEENT Exam Head: Present: normal inspection ENT: Present: mucous membranes moist - Routine Neck Exam Present: supple - Routine Respiratory Exam Present: CTAB - Routine Cardiovascular Exam Cardiovascular: Present: RRR, S1, S2 - Routine Abdominal Exam Present: soft, nontender - Routine Rectal Exam Patient deferred: digital exam - Routine Extremities Exam Present: nontender - Routine Back/Spine/Pelvis Exam Back/Spine: Present: full ROM Hem/Onc Consult Result - Labs CBC & Chem 7: 03/07/21 05:07 03/07/21 05:07 Labs: Short CBC 03/06/21 03/07/21 Range/Units 18:57 05:07 WBC 9.0 8.9 (4.8-10.8) X10*3/uL Hgb 10.7 L 10.7 L (14.0-18.0) g/dl Hct 32.2 L 32.2 L (42-52) % Plt Count 269 264 (160-400) X10*3/uL BMP 03/06/21 03/07/21 18:57 05:07 Sodium 137 134 L Potassium 3.8 3.9 Chloride 101 99 Carbon Dioxide 26 26 BUN 9 11 Creatinine 1.18 1.35 Calcium 8.7 8.6 Assessment and Plan (1) Pulmonary embolism Status: Acute Qualifiers: Pulmonary embolism type: single subsegmental (without acute cor pulmonale) Qualified Code(s): I26.93 - Single subsegmental pulmonary embolism without acute cor pulmonale This is a pleasant 60-year-old gentleman who has been admitted with left lower lobe PE. He has a prior history of DVT and left lower lobe PE as well. He now has a recurrence. This happened on therapeutic anticoagulation. Patient was already on Eliquis. This means he failed Eliquis. PLAN: I would recommend Lovenox therapy, 1 milligram/kilogram q.12 dose. Will continue to monitor. Can follow him on an outpatient basis. Thank you, CC: Dr. Wade.
--- NOTE | 2021-03-07 10:23 | P.CONCA_ITS ---
History of Present Illness History of Present Illness Date of Service: 03/07/21 Requesting physician: Hanh Wade Chief complaint: Chest pain/syncope Narrative: 60-year-old gentleman with background history of tobacco abuse, hyperlipidemia, hypertension and coronary artery disease with single-vessel PCI in the past. He follows with Dr. Sainz. Is presenting for sharp left-sided chest pain ongoing for few days. He denies any shortness of breath. He said he took 3 nitroglycerin and then passed out. He has been diagnosed with left-sided pulmonary embolism. Denies any exertional shortness of breath or worsening of chest discomfort. The chest pain is not pleuritic. He is saying that he had similar pain when he had PCI done in the past. This pain has been persistent with normal troponin levels. 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 Low back pain Lumbar degenerative disc disease Obesity (BMI 30-39.9) Onychomycosis Pelvic pain in male Proteinuria Pure hypercholesterolemia PVD (peripheral vascular disease) Sleep apnea Smoker 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 Family History Family History Father Cancer Mother Diabetes Surgical History Surgical History H/O colonoscopy History of ankle surgery History of arthroplasty of left knee History of esophagogastroduodenoscopy (EGD) History of heart artery stent History of inguinal hernia repair History of knee surgery History of lumbar surgery Hx of cataract surgery Social History Social History Alcohol intake: never Smoking Status: Current every day smoker Tobacco Type: Cigarette Use of substances other than those prescribed or required for medical reasons: No Advance Directives: No Advance Directives Information Provided: No Meds Allergies Allergy/AdvReac Type Severity Reaction Status Date / Time nicotine AdvReac Unknown tachycardia, Verified 02/17/21 12:00 shaking Active Medications: Current Medications Generic Name Dose Route Start Last Admin Trade Name Freq PRN Reason Stop Dose Admin Acetaminophen 650 mg 03/06/21 21:42 Acetaminophen 325 Mg Tablet PO Q6H PRN Pain, Mild (Pain Scale 1-3) Albuterol Sulfate 2 puff 03/07/21 02:23 Albuterol Sulfate 90 Mcg 8 Gm Inhaler INHALE Q6H PRN Respiratory Distress Albuterol/Ipratropium 3 ml 03/07/21 08:00 Albuterol/Iprat 2.5/0.5mg 3 Ml Ampul.Neb INHALE RQ4H WHILE AWAKE [facility] Aspirin 81 mg 03/07/21 09:00 03/07/21 08:50 Aspirin Enteric Coated 81 Mg Tablet.Dr PO 81 mg DAILY [facility] Administration Enoxaparin Sodium 85 mg 03/06/21 23:00 03/07/21 02:47 Enoxaparin Sodium 100 Mg/Ml Syringe 1 mg/kg (85 mg) 85 mg SUBCUT Administration Q12H [facility] Insulin Glargine 30 unit 03/07/21 21:00 Insulin Glargine,Hum.Rec.Anlog 100 Unit/Ml 10 Ml Vial SUBCUT BEDTIME [facility] Insulin Human Lispro 0 unit 03/07/21 07:30 03/07/21 05:06 Insulin Lispro 100 Unit/Ml 3 Ml Vial SUBCUT 6 unit QIDACHS [facility] Administration Protocol Lisinopril 10 mg 03/07/21 09:00 03/07/21 08:52 Lisinopril 10 Mg Tablet PO 10 mg DAILY [facility] Administration Protocol Magnesium Hydroxide 30 ml 03/06/21 21:42 Milk Of Magnesia 30 Ml Oral.Susp PO DAILY PRN Constipation Metoprolol Succinate 100 mg 03/07/21 09:00 03/07/21 08:50 Metoprolol Succinate Er 100 Mg Tab.Er.24h PO 100 mg DAILY [facility] Administration Protocol Morphine Sulfate 1 mg 03/07/21 02:18 03/07/21 09:13 Morphine Sulfate 2 Mg/Ml Cartridge IVPUSH 1 mg Q4H PRN Administration Chest Pain Nitroglycerin 0.4 mg 03/06/21 21:42 Nitroglycerin 0.4 Mg Tab.Subl SUBLINGUAL Q5M PRN Chest Pain Omeprazole 40 mg 03/07/21 09:00 03/07/21 08:50 Omeprazole 40 Mg Capsule. PO 40 mg BID [facility] Administration Pharmacy Consult 1 each 03/06/21 22:00 Consult Rx Perform Med Rec MISCELLANE ONCE PRN Consult order Quetiapine Fumarate 200 mg 03/07/21 21:00 Quetiapine Fumarate 200 Mg Tablet PO BEDTIME [facility] Sodium Chloride 3 ml 03/07/21 00:00 03/07/21 01:16 0.9 % Sodium Chloride Flush 3 Ml Syringe IVFLUSH Not Given QSHIFT [facility] Home Medications Medication Instructions Recorded Confirmed Last Taken Type atorvastatin 40 mg tablet 40 mg PO BEDTIME 10/15/20 03/06/21 Unknown History albuterol sulfate 2 puff INHALATION Q6H PRN 03/06/21 03/06/21 Unknown History insulin glargine [Lantus Solostar 50 unit SUBCUT BEDTIME 03/06/21 03/06/21 03/05/21 History U-100 Insulin] insulin lispro [Admelog SoloStar 0 unit SUBCUT TIDAC 03/06/21 03/06/21 Unknown History U-100 Insulin] omeprazole 40 mg PO BID 03/06/21 03/06/21 Unknown History oxycodone-acetaminophen 1 tab PO Q4H PRN 03/06/21 03/06/21 Unknown History quetiapine 200 mg PO BEDTIME 03/06/21 03/06/21 Unknown History Physical Exam Vital Signs: Vital Signs: Last Vital Signs Temp 98 F 03/06/21 18:20 Pulse 72 03/07/21 08:52 Resp 16 03/07/21 04:59 BP 160/81 H 03/07/21 08:52 Pulse Ox 96 03/07/21 04:59 Body Mass Index 28.0 GENERAL APPEARANCE: in no acute distress, pleasant. NECK: no carotid bruit, no jugular venous distention. SKIN: no suspicious lesions, warm and dry. HEART: no murmurs, regular rate and rhythm. LUNGS: clear to auscultation bilaterally. ABDOMEN: soft, nontender. EXTREMITIES: no edema. PERIPHERAL PULSES: equal. NEUROLOGIC: No gross deficits, AAO X 3 Results Labs and Meds Result diagrams: 03/07/21 05:07 03/07/21 05:07 Lab results: Laboratory Results - last 24 hr 03/06/21 03/06/21 03/06/21 18:57 18:57 18:57 WBC 9.0 RBC 3.72 L Hgb 10.7 L Hct 32.2 L MCV 86.6 MCH 28.8 MCHC 33.2 RDW 13.3 Plt Count 269 MPV 9.7 Immature Gran % (Auto) 0.3 Neut % (Auto) 71.3 Lymph % (Auto) 19.1 L [place] % (Auto) 8.0 Eos % (Auto) 1.1 Baso % (Auto) 0.2 Lymph # (Auto) 1.7 [place] # (Auto) 0.7 Eos # (Auto) 0.1 Baso # (Auto) 0.0 Abs Immat Gran (auto) 0.03 Absolute Neuts (auto) 6.4 Absolute Nucleated RBC 0.000 Nucleated RBC % (auto) 0.0 APTT Sodium 137 Potassium 3.8 Chloride 101 Carbon Dioxide 26 Anion Gap 14 BUN 9 Creatinine 1.18 Estim Creat Clear Calc 73.3 Estimated GFR > 60 POC Glucose Random Glucose 149 H Calcium 8.7 Troponin I High Sens 4.7 COVID-19 ([facility]) COVID-[place] 03/06/21 03/06/21 03/06/21 20:39 21:38 22:30 WBC RBC Hgb Hct MCV MCH MCHC RDW Plt Count MPV Immature Gran % (Auto) Neut % (Auto) Lymph % (Auto) [place] % (Auto) Eos % (Auto) Baso % (Auto) Lymph # (Auto) [place] # (Auto) Eos # (Auto) Baso # (Auto) Abs Immat Gran (auto) Absolute Neuts (auto) Absolute Nucleated RBC Nucleated RBC % (auto) APTT 37.3 Sodium Potassium Chloride Carbon Dioxide Anion Gap BUN Creatinine Estim Creat Clear Calc Estimated GFR POC Glucose Random Glucose Calcium Troponin I High Sens 4.2 COVID-19 ([facility]) Negative COVID-[place] See Note 03/07/21 03/07/21 03/07/21 04:51 05:07 05:07 WBC 8.9 RBC 3.76 L Hgb 10.7 L Hct 32.2 L MCV 85.6 MCH 28.5 MCHC 33.2 RDW 13.2 Plt Count 264 MPV 9.5 Immature Gran % (Auto) 0.5 H Neut % (Auto) 67.4 Lymph % (Auto) 22.1 [place] % (Auto) 8.3 Eos % (Auto) 1.6 Baso % (Auto) 0.1 Lymph # (Auto) 2.0 [place] # (Auto) 0.7 Eos # (Auto) 0.1 Baso # (Auto) 0.0 Abs Immat Gran (auto) 0.04 H Absolute Neuts (auto) 6.0 Absolute Nucleated RBC 0.000 Nucleated RBC % (auto) 0.0 APTT Sodium 134 L Potassium 3.9 Chloride 99 Carbon Dioxide 26 Anion Gap 13 BUN 11 Creatinine 1.35 Estim Creat Clear Calc 64.0 Estimated GFR 54 POC Glucose 262 H Random Glucose 285 H D Calcium 8.6 Troponin I High Sens COVID-19 ([facility]I) COVID-19 [employer] 03/07/21 03/07/21 05:07 08:38 WBC RBC Hgb Hct MCV MCH MCHC RDW Plt Count MPV Immature Gran % (Auto) Neut % (Auto) Lymph % (Auto) [place] % (Auto) Eos % (Auto) Baso % (Auto) Lymph # (Auto) [place] # (Auto) Eos # (Auto) Baso # (Auto) Abs Immat Gran (auto) Absolute Neuts (auto) Absolute Nucleated RBC Nucleated RBC % (auto) APTT Sodium Potassium Chloride Carbon Dioxide Anion Gap BUN Creatinine Estim Creat Clear Calc Estimated GFR POC Glucose 213 H Random Glucose Calcium Troponin I High Sens 4.6 COVID-19 ([facility]I) COVID-19 Clin Com Imaging Radiologist's impression: Impressions Chest CTA 03/06/21 20:10 IMPRESSION: Left lower lobe pulmonary emboli VTE: positive An attempt will be made to contact the referring clinician with the results and when this has been done, an addendum will be issued. Abdomen/Pelvis CT 03/07/21 05:40 IMPRESSION: No acute traumatic findings in the abdomen or pelvis. Cervical Spine CT 03/07/21 05:40 IMPRESSION: 1. No acute intracranial finding. 2. No acute fracture or malalignment of the cervical spine. 3. 1.6 cm left thyroid lobe nodule. This can be further evaluated with nonemergent ultrasound. Head CT 03/07/21 05:40 IMPRESSION: 1. No acute intracranial finding. 2. No acute fracture or malalignment of the cervical spine. 3. 1.6 cm left thyroid lobe nodule. This can be further evaluated with nonemergent ultrasound. Assessment and Plan (1) Pulmonary embolism: Qualifiers: Pulmonary embolism type: single subsegmental (without acute cor pulmonale) Qualified Code(s): I26.93 - Single subsegmental pulmonary embolism without acute cor pulmonale Status: Acute (2) Chest pain: Status: Acute (3) Essential hypertension: Status: Acute (4) Syncope: Status: Acute Pleasant 60 gentleman who is presenting with chest pain ongoing for few days. The chest pain is pleuritic in nature. He has been diagnosed with pulmonary embolism. His cardiac enzymes are normal despite having ongoing pain for few days. I think the chest pain is likely due to pulmonary embolism. I have advised him not to use nitroglycerin for this pain. I think syncope is related with nitroglycerin use. I think we should check an echocardiogram to assess right ventricular function to make sure he does not have any dysfunction due to pulmonary embolism, although unlikely. His blood pressure is elevated. His lisinopril can be increased to 20 mg once a day. He should follow up with Dr. Sainz. Thank you for allowing me to participate in the care of your patient. Please feel free to contact me if you have any questions.
--- NOTE | 2021-03-07 11:01 | HO.PM.IMPN ---
Subjective Subjective Date of Service: 03/07/21 Interval History: Patient complaining of persistent left lower chest pain, continuous nonradiating, no diaphoresis improves with pain medications but return when the effect wears off, he feels pain is similar when he had PCI done in the past. General no headache no dizziness no fever chills. CVS chest pain continuous, no palpitation. Respiratory no cough, no sob. Gastrointestinal no nausea, no vomiting, no abdominal pain Physical Exam Vital Signs: Vital Signs: Last Vital Signs Temp 98 F 03/06/21 18:20 Pulse 72 03/07/21 08:52 Resp 16 03/07/21 04:59 BP 160/81 H 03/07/21 08:52 Pulse Ox 96 03/07/21 04:59 Body Mass Index 28.0 General resting comfortably in no acute distress. Neck is supple no JVD. CVS regular rate rhythm, Respiratory lungs clear to auscultation, no respiratory distress, no wheeze, no rhonchi. Gastrointestinal abdomen soft, nontender, bowel sounds audible, no guarding , no rigidity. Extremities no clubbing cyanosis or edema. Neuro nonfocal ,speech clear. Skin no rash Objective Data Current Medications Generic Name Dose Route Start Last Admin Trade Name Freq PRN Reason Stop Dose Admin Acetaminophen 650 mg 03/06/21 21:42 Acetaminophen 325 Mg Tablet PO Q6H PRN Pain, Mild (Pain Scale 1-3) Albuterol Sulfate 2 puff 03/07/21 02:23 Albuterol Sulfate 90 Mcg 8 Gm Inhaler INHALE Q6H PRN Respiratory Distress Albuterol/Ipratropium 3 ml 03/07/21 08:00 Albuterol/Iprat 2.5/0.5mg 3 Ml Ampul.Neb INHALE RQ4H WHILE AWAKE [facility] Aspirin 81 mg 03/07/21 09:00 03/07/21 08:50 Aspirin Enteric Coated 81 Mg Tablet. PO 81 mg DAILY [facility] Administration Enoxaparin Sodium 85 mg 03/06/21 23:00 03/07/21 02:47 Enoxaparin Sodium 100 Mg/Ml Syringe 1 mg/kg (85 mg) 85 mg SUBCUT Administration Q12H [facility] Insulin Glargine 30 unit 03/07/21 21:00 Insulin Glargine,Hum.Rec.Anlog 100 Unit/Ml 10 Ml Vial SUBCUT BEDTIME [facility] Insulin Human Lispro 0 unit 03/07/21 07:30 03/07/21 05:06 Insulin Lispro 100 Unit/Ml 3 Ml Vial SUBCUT 6 unit QIDACHS [facility] Administration Protocol Lisinopril 10 mg 03/07/21 09:00 03/07/21 08:52 Lisinopril 10 Mg Tablet PO 10 mg DAILY [facility] Administration Protocol Magnesium Hydroxide 30 ml 03/06/21 21:42 Milk Of Magnesia 30 Ml Oral.Susp PO DAILY PRN Constipation Metoprolol Succinate 100 mg 03/07/21 09:00 03/07/21 08:50 Metoprolol Succinate Er 100 Mg Tab.Er.24h PO 100 mg DAILY [facility] Administration Protocol Morphine Sulfate 1 mg 03/07/21 02:18 03/07/21 09:13 Morphine Sulfate 2 Mg/Ml Cartridge IVPUSH 1 mg Q4H PRN Administration Chest Pain Omeprazole 40 mg 03/07/21 09:00 03/07/21 08:50 Omeprazole 40 Mg Capsule. PO 40 mg BID [facility] Administration Pharmacy Consult 1 each 03/06/21 22:00 Consult Rx Perform Med Rec MISCELLANE ONCE PRN Consult order Quetiapine Fumarate 200 mg 03/07/21 21:00 Quetiapine Fumarate 200 Mg Tablet PO BEDTIME [facility] Sodium Chloride 3 ml 03/07/21 00:00 03/07/21 01:16 0.9 % Sodium Chloride Flush 3 Ml Syringe IVFLUSH Not Given QSHIFT [facility] Labs CBC & Chem 7: 03/07/21 05:07 03/07/21 05:07 Assessment and Plan (1) Syncope: Status: Acute (2) Pulmonary embolism: Status: Acute (3) Chest pain: Status: Acute (4) Smoker: Status: Acute (5) Benign essential hypertension: Status: Acute (6) Pure hypercholesterolemia: Status: Acute (7) CAD (coronary artery disease): Problem details: s/p stent 2009 Lexiscan stress test done in 2019 came out NORMAL Status: Acute (8) Deep vein thrombosis (DVT) of right lower extremity: Status: Acute Assessment and Plan: 60-year-old male with a past medical history of hypertension, hyperlipidemia, diabetes, coronary artery disease status post stents, tobacco dependence, peripheral vascular disease, history of DVT/PE, anxiety, depression, GERD presented to the hospital with a chief complaint of chest pain/syncope. Chest pain/PE: Since pain is continuous with normal troponins and no EKG findings less likely cardiac in origin, and pain likley due to Pulmonary Embolism ,case discussed with Dr. Costa , he recommend to obtain echocardiogram to look for right Ventricular function, will continue home medication including metoprolol and aspirin. continue lovenox for PE pt was on Eliquis for dvt but developed left lower lobe PE; continue Lovenox await Hematology input for choice of therapy. Patient has history of prior left-sided pulmonary embolus as well. Patient on morphine for chest pain, will add oxycodone 5 mg q.6 hours as needed. Syncope: Likely related to hypotension with use of nitro tablets patient took 6 nitro tablets the day before and 3 nitro tablets the day of syncope All workup including CT head, C-spine and CT abdomen came back negative, no arrhythmia is on tele monitor. Tobacco use disorder patient previously was smoking 2 pack of cigarettes a day since age 11 now cut back to 10 cigarettes a day and is gradually working, declined nicotine patch due to episode of tachycardia with use of low-dose nicotine patch in the past. History of diabetes: Blood sugars elevated, continue Insulin sliding scale and Lantus insulin. History of hypertension/hyperlipidemia/CAD: Continue home medications. Noted to have elevated blood pressure will increase dose of lisinopril to 20 mg daily DVT prophylaxis: Patient on lovenox Code status: Full code
[2021-03-07 11:14] LABS: Glucose, Whole Blood 262 mg/dL (60-115)
--- NOTE | 2021-03-07 12:00 | CA_ITS ---
Transthoracic Echocardiogram Patient (Last, First, Middle): Matty Smith, Gender: Male Date of : 1960 Age: 60 Procedure Date: 03/07/2021 Procedure Type: Transthoracic Echocardiogram Location: ER Height: 175.26 cm Weight: 86.18 kg BSA: 2.02 m2 Heart Rate: bpm BP: 160 / 81 mmHg Tavern Keeper: NANCY Corona MD: Colin Costa MD Pharmacogeneticist: Adrian Abarca MD Symptoms: PE Study Quality: Good ECG Rhythm: Sinus Conclusions: - 1. Normal LV systolic function with impaired relaxation filling pattern with possible basal inferior hypokinesis 2. Mildly dilated left atrium 3. Normal cardiac valvular Doppler 4. Normal RV systolic pressure 5. No pericardial effusion Findings Left Ventricle Normal left ventricular size, thickness, and systolic function. The visually estimated ejection fraction is between 60-65%. Spectral Doppler is indicative of an impaired relaxation filling pattern. E/E prime ratio is between 8 and 15 consistent with indeterminate filling pressures. Wall Motion Rest Echo Findings The basal inferior segment is hypokinetic. All other scored wall segments showed normal motion. Right Ventricle Normal right ventricular cavity size and systolic function. Atria The left atrium is mildly dilated. There is no evidence of interatrial shunt. The right atrium is normal in size. Aortic Valve There is mild calcification of the aortic valve. There is no aortic valve stenosis. There is no aortic valve regurgitation. Mitral Valve Likely normal mitral valve structure and function. There is mild mitral annular calcification. There is trace mitral valve regurgitation. There is no mitral valve stenosis. Pulmonic Valve The pulmonic valve was not well visualized. Tricuspid Valve Likely normal tricuspid valve structure and function. There is mild tricuspid valve regurgitation. The right ventricular systolic pressure is normal. The right ventricular systolic pressure is 35 mmHg. There is no evidence of pulmonary hypertension. Great Vessels The pulmonary artery was not well visualized. There is mild dilatation of the ascending aorta measuring 3.80 cm. Venous The inferior vena cava is normal in size and collapses greater than 50% with inspiration. Pericardium/Pleural There is no evidence of pericardial effusion. Prior Study Comparison No significant change compared to prior study dated: 03/15/2018. Measurements 2D Linear Measurements IVSd: 0.95 0.6-0.9/0.6-1.0 cm LVIDd: 4.39 3.9-5.3/4.2-5.9 cm LVIDd Index: 2.17 2.4-3.2/2.2-3.1 cm/m2 LVIDs: 2.86 2.0-3.6 cm LVPWd: 1.09 0.7-1.1 cm Ao Root: 3.70 2.1-3.5 cm LA Diam: 3.90 2.7-3.8/3.0-4.0 cm LAIDs Index: 1.93 1.5-2.3 cm/m2 LV Mass: 189.01 67-162/88-224 g LV Mass Index: 93.57 43-95/49-115 g/m2 LVOT Diam: 2.20 3.0+(-)1.3 cm Mitral Valve MV Pk E: 1.04 MV PK A: 0.96 MV Decel Time: 189.00 E/A: 1.10 E'Lateral: 9.57 E'Medial: 9.14 E/E' Med: 11.40 E/E' Lat: 10.90 PHT: 55.00 MVA PHT: 4.00 Decel [place]: 5.53 Aortic Valve AoV Pk Thomas: 1.28 AoV Mn Thomas: 0.79 AoV VTI: 0.27 AoV Pk Grad: 7.00 Aov Mn Grad: 3.00 ALVA Cont.VTI: 3.34 LVOT LVOT Pk Thomas: 1.06 LVOT Mn Thomas: 0.63 LVOT VTI: 0.24 LVOT Pk Grad: 4.00 LVOT Mn Grad: 2.00 LVOT Diam: 2.20 LVOT Area: 3.80 Diastolic Function MV Pk E: 1.04 MV Pk A: 0.96 E/A: 1.10 E'Medial: 9.14 E/E' Med: 11.40 E' Laterial: 9.57 E/E' Lat: 10.90 Tricuspid Valve TR Pk Thomas: 2.84 TR Pk Grad: 32.00 RA Press: 3.00 RVSP: 35.00 Great Vessels Aorta Ao Root-2D: 3.70 2.0-3.7 cm Ao Asc: 3.80 2.1-3.4 cm Ao Arch: 3.60 Updated in Other Vendor System with Status of Final Adrian Abarca MD electronically signed on 03/07/2021 12:54:45 PM with status of Final
--- NOTE | 2021-03-07 12:21 | PC.NURSE ---
Attempt made to call report to [facility] RN at this time. Per paralegal legal secretary RN to call back.
[2021-03-07] MEDS: 0.9 % Sodium Chloride Flush 3 ML SYRINGE IVFLUSH ×2 (12:55→13:31)
[2021-03-07] MEDS: ondansetron HCL 4 MG/2 ML VIAL IVPUSH (14:17)
[2021-03-07] MEDS: oxyCODONE HCl Immed Release 5 MG TABLET PO (15:14)
[2021-03-07] MEDS: Albuterol/Iprat 2.5/0.5MG 3 ML AMPUL.NEB INHALE ×2 (15:37→19:45)
[2021-03-07 16:11] LABS: Glucose, Whole Blood 265 mg/dL (60-115)
--- NOTE | 2021-03-07 17:56 | PC.NURSE ---
PT NONCOMPLIANT WITH HIGH FALL RISK STATUS. FREQUENT EDUCATION ON USE OF CALL TORO AND IMPORTANCE OF USING CALL TORO WHEN GETTING UP. WILL CONTINUE TO MONITOR.
[2021-03-07] MEDS: QUEtiapine Fumarate 200 MG TABLET PO (20:31)
[2021-03-07 20:32] LABS: Glucose, Whole Blood 314 mg/dL (60-115)
[2021-03-07] MEDS: Insulin Glargine,Hum.rec.anlog 100 UNIT/ML 10 ML VIAL 30 UNIT SUBCUT (20:47)
[2021-03-07] MEDS: LORazepam 1 MG TABLET PO (23:52)
[2021-03-08] MEDS: 0.9 % Sodium Chloride Flush 3 ML SYRINGE IVFLUSH ×2 (00:28→09:15)
[2021-03-08 00:29] VITALS: RESP 20
[2021-03-08] MEDS: Morphine Sulfate 2 MG/ML CARTRIDGE 1 MG IVPUSH ×2 (00:29→09:16)
[2021-03-08 03:45] VITALS: BP 147/68; PULSE 64; RESP 18; TEMP 37; O2SAT 96
[2021-03-08 07:04] LABS: Glucose, Whole Blood 77 mg/dL (60-115)
[2021-03-08 07:20] VITALS: BP 136/75; PULSE 64; RESP 16; TEMP 36.6; O2SAT 97
[2021-03-08 09:15] VITALS: BP 136/75; PULSE 64
[2021-03-08] MEDS: Omeprazole 40 MG CAPSULE.DR PO (09:15)
[2021-03-08] MEDS: Metoprolol Succinate ER 100 MG TAB.ER.24H PO (09:15)
[2021-03-08 09:16] VITALS: BP 136/75; PULSE 64
[2021-03-08] MEDS: lisinopriL 20 MG TABLET PO (09:16)
[2021-03-08] MEDS: Aspirin Enteric Coated 81 MG TABLET.DR PO (09:16)
[2021-03-08 11:18] LABS: Glucose, Whole Blood 264 mg/dL (60-115)
--- NOTE | 2021-03-08 11:30 | PM.DS ---
DS: Providers Provider Date of Service: 03/08/21 Date of admission: 03/06/21 21:42 Primary care physician: Cecilio De Paz MD Consults: 03/06/21 21:41 Consult to Cardiology Routine Consulting Provider: Colin Costa Reason for consultation: chest pain/syncope 03/06/21 22:31 Consult to Hematology / Oncology Routine Consulting Provider: Kinza Deshpande Reason for consultation: pt on Eliquis; has PE; choice of therapy DS: Diagnosis Discharge Diagnosis (1) Pulmonary embolism: Status: Acute DS: Medications Discharge Medications Home Medications: Home Medications Medication Instructions Recorded Confirmed atorvastatin 40 mg tablet 40 mg PO BEDTIME 10/15/20 03/06/21 Lantus Solostar U-100 Insulin 50 unit SUBCUT BEDTIME 03/06/21 03/06/21 albuterol sulfate 2 puff INHALATION Q6H PRN 03/06/21 03/06/21 insulin lispro [Admelog SoloStar 0 unit SUBCUT TIDAC 03/06/21 03/06/21 U-100 Insulin] omeprazole 40 mg PO BID 03/06/21 03/06/21 oxycodone-acetaminophen 1 tab PO Q4H PRN 03/06/21 03/06/21 quetiapine 200 mg PO BEDTIME 03/06/21 03/06/21 Previous Rx's Medication Instructions Recorded metoprolol succinate 100 mg 100 mg PO DAILY #30 tab 08/28/20 tablet,extended release 24 hr nitroglycerin 0.4 mg sublingual 0.4 mg SUBLINGUAL Q5M PRN #10 tab 10/28/20 tablet blood sugar diagnostic #120 ea 12/11/20 lancets 28 gauge #100 ea 12/13/20 aspirin 81 mg tablet,delayed 81 mg PO DAILY 90 Days #90 tab 02/17/21 release lisinopril 10 mg tablet 10 mg PO DAILY 90 Days #90 tab 02/17/21 oxycodone-acetaminophen 5 mg-325 1 tab PO .3 to 4 times a day PRN 03/06/21 mg tablet 15 Days #60 tab enoxaparin 85 mg SUBCUT Q12H #60 ml 03/08/21 DS: Summary Hospital Course Hospital Course: 60-year-old male with a past medical history of hypertension, hyperlipidemia, diabetes, coronary artery disease status post stents, tobacco dependence, peripheral vascular disease, history of DVT/PE on Eliquis, anxiety, depression, GERD presented to the hospital with a chief complaint of chest pain/syncope after taking multiple doses of Nitro, 6 by his count Chest pain/PE: His pain was continuous with normal troponins and no EKG findings less likely cardiac in origin, and pain likley due to Pulmonary Embolism ,case discussed with Dr. Costa , he recommend to obtain echocardiogram which showed normal function and no RV dilation, slight impair relaxation. He will l continue home medication including metoprolol and aspirin. Pulmonary embolism, he has been on Eliquis for dvt but developed left lower lobe PE and in the hospital is given Lovenox and Hematology recommend continuing with Lovenox which patient is comfortable given to himself and compliance stressed Syncope: Likely related to hypotension with use of nitro tablets patient took 6 nitro tablets the day before and 3 nitro tablets the day of syncope All workup including CT head, C-spine and CT abdomen came back negative, no arrhythmia is on tele monitor. We don't think syncope was related to PE Tobacco use disorder patient previously was smoking 2 pack of cigarettes a day since age 11 now cut back to 10 cigarettes a day and is gradually working, declined nicotine patch due to episode of tachycardia with use of low-dose nicotine patch in the past. History of diabetes: To continue prior home regimen History of hypertension/hyperlipidemia/CAD: Continue home medications. Lisinopril increase to 20 for better blood pressure control Time Spent with Patient Time attestation: Total time spent providing and/or coordinating discharge services: Discharge coordination time: Greater than 30 minutes Quality: Stroke Does the patient have a stroke diagnosis?: No Physical Exam Vital Signs: Vital Signs: Last Vital Signs Temp 98 F 03/08/21 07:20 Pulse 64 03/08/21 09:16 Resp 16 03/08/21 07:20 BP 136/75 03/08/21 09:16 Pulse Ox 97 03/08/21 07:20 Body Mass Index 29.2 Constitutional Awake and Alert, No apparent distress Neck Supple, No lymphadenopathy Cardiovascular RRR, No M/R/G, S1 S2, No S3 S4, No pedal edema Respiratory Lungs clear, No respiratory distress Gastrointestinal Non tender, Non-distended Skin No rash Neurological Alert & oriented x3 Psychological Appropriate affect DS: Data Data Completed and Pending Labs on day of discharge: Laboratory Results - last 24 hr 03/07/21 03/07/21 03/08/21 16:06 20:27 07:00 POC Glucose 265 H 314 H 77 03/08/21 11:11 POC Glucose 264 H Discharge Plan Discharge Anticipated Discharge Date/Time: 03/08/21 11:29 Patient Disposition: Home, Self-Care Discharge Diagnosis: chest pain, history of pe and dvt Referrals: Cecilio De Paz MD [Primary Care Provider] - 1 Week Kinza Deshpande MD [Physician] - 1 Week (follow up on DVT/PE, call for appointment) Discharge Medications: New enoxaparin 100 mg/mL Syringe 85 mg subcut Q12H Qty: 60 RF: 0 Continued metoprolol succinate 100 mg tablet extended release 24 hr 100 mg PO DAILY Qty: 30 RF: 5 nitroglycerin 0.4 mg tablet, sublingual 0.4 mg sublingual Q5M PRN (Reason: chest pain) Qty: 10 RF: 0 (DME) FreeStyle Lite Strips Strip See Rx Instructions .ROUTE .MEDSUPPLY Qty: 120 RF: 12 (DME) lancets [FreeStyle Lancets] 28 gauge misc See Rx Instructions .ROUTE .MEDSUPPLY Qty: 100 RF: 12 oxycodone-acetaminophen 5-325 mg tablet 1 tab PO .3 to 4 times a day PRN (Reason: pain) 15 Days Qty: 60 RF: 0 quetiapine 200 mg tablet 200 mg PO BEDTIME RF: 0 oxycodone-acetaminophen 5-325 mg tablet 1 tab PO Q4H PRN (Reason: Moderate Pain (Scale Score 5-6)) RF: 0 insulin lispro [Admelog SoloStar U-100 Insulin] 100 unit/mL insulin pen 0 unit subcut TIDAC RF: 0 Lantus Solostar U-100 Insulin 100 unit/mL (3 mL) insulin pen 50 unit subcut BEDTIME RF: 0 omeprazole 40 mg capsule,delayed release(DR/EC) 40 mg PO BID RF: 0 albuterol sulfate 90 mcg/actuation HFA aerosol inhaler 2 puff inhalation Q6H PRN (Reason: Respiratory Distress) RF: 0 atorvastatin 40 mg tablet 40 mg PO BEDTIME RF: 0 aspirin 81 mg tablet,delayed release (DR/EC) 81 mg PO DAILY 90 Days Qty: 90 RF: 3 Changed lisinopril 10 mg tablet 2 mg PO DAILY 90 Days Qty: 90 RF: 3 Discontinued apixaban [Eliquis] 5 mg tablet 5 mg PO BID Qty: 60 RF: 2 Discharge Orders: Discharge Order (Routine); Ordered 03/08/21 Ordered By: Markos Mondragon Diet: advance to usual diet Activity on Discharge: As tolerated Stand Alone Forms: Patient Portal Discharge page Care Plan Goals: prevent rehospitalization and new blood clots Health Concerns: hstory of recurent blood clots, PE and DVT Plan of Treatment: Stop taken Eliquis, starting Lovenox shots at 85 mg twice daily and follow up with Dr. Deshpande in the office next week, call for appointment Lisinopril dose increased to 20 daily for better blood pressure control Assessment: See above
[2021-03-08] MEDS: Enoxaparin Sodium 100 MG/ML SYRINGE 85 MG SUBCUT (11:45)
--- NOTE | 2021-03-08 11:50 | MHC.CM.PN ---
PT REPORTS HE USUALLY USES A CANE OR WALKER TO AMBULATE. PT REPORTS HE ALSO USES A SHOWER CHAIR AT HOME. PT REPORTS LIVING ALONE BUT HAVING A GF AND A SENIOR TECHNICAL MANAGER THAT ASSIST HIM WITH PERSONAL AND HOME CARE. PT IS AWARE HE IS BEING DISCHARGED TODAY. PT IS ON LOVENOX AND REPORTS PREFERRING TO ADMINISTER THE MED HIMSELF. pT WILL DC HOME WITH RESUMPTION OF SENIOR TECHNICAL MANAGER SERVICES VS SELF ARRANGED TRANSPORT
== END 2021-03-08 12:00 | disposition home or self-care (01) ==
LOC: HO.ED 20:15 → HO.EDOVER 21:51 → HO.IMC 03-07 11:03
PROVIDERS: Hospitalist; Admitting Provider Hospitalist; Emergency Provider Emergency Medicine; PCP Internal Medicine; Visit Provider Internal Medicine
DX: R55 Syncope and collapse (principal); I26.93 Single subsegmental thrombotic pulmonary embolism without acute cor pulmonale; R07.9 Chest pain, unspecified; I10 Essential (primary) hypertension; E78.5 Hyperlipidemia, unspecified; E78.00 Pure hypercholesterolemia, unspecified; I25.10 Atherosclerotic heart disease of native coronary artery without angina pectoris; I82.401 Acute embolism and thrombosis of unspecified deep veins of right lower extremity; I26.99 Other pulmonary embolism without acute cor pulmonale; F41.8 Other specified anxiety disorders; K21.9 Gastro-esophageal reflux disease without esophagitis; E11.42 Type 2 diabetes mellitus with diabetic polyneuropathy; E11.29 Type 2 diabetes mellitus with other diabetic kidney complication; N28.9 Disorder of kidney and ureter, unspecified; E04.1 Nontoxic single thyroid nodule; R94.31 Abnormal electrocardiogram [ECG] [EKG]; T46.3X5A Adverse effect of coronary vasodilators, initial encounter; R00.1 Bradycardia, unspecified; Y92.9 Unspecified place or not applicable; F17.210 Nicotine dependence, cigarettes, uncomplicated; Z20.822 Contact with and (suspected) exposure to COVID-19; Z95.5 Presence of coronary angioplasty implant and graft; Z79.01 Long term (current) use of anticoagulants; Z79.4 Long term (current) use of insulin; Z79.899 Other long term (current) drug therapy
CPT/HCPCS: 36415; 70450; 71275; 72125; 74176; 80048; 82947; 84484; 85025; 85730; 87635; 93005; 93306; 94640; 96372; 96374; 96375; 99219; 99285; 99291; J1170; J1650; J1885; J2270; J2405; Q9967

== ENCOUNTER 2021-03-12 23:39 | Emergency (ER) | payer OTHER, SELFPAY ==
--- NOTE | ~2021-03-12 | CT_ITS ---
EXAMINATION: CT ANGIOGRAM OF THE CHEST; CONTRAST-ENHANCED CT OF THE ABDOMEN AND PELVIS INDICATION: Chest pain, persistent shortness of breath, known PE, abdominal discomfort COMPARISON: 03/07/2021, 03/06/2021 TECHNIQUE: 85 mL Omnipaque 350 IV contrast was utilized. Multidetector helical imaging was performed through the chest per PE protocol. Coronal, sagittal, and MIP images of the chest were created. In addition, multidetector helical imaging was performed through the abdomen and pelvis. Coronal and sagittal reformatted images were created at the technologist workstation. DOSE LOWERING TECHNIQUES: This CT examination was performed using dose optimization techniques as appropriate, variously including the following: - Automated exposure control - Adjustment of mA and/or kV according to patient size (this includes techniques or standardized protocols for targeted exams were dose is matched to indication/reason for exam; i.e. extremities or head) - Use of iterative reconstruction technique DLP: 1098 mGy-cm FINDINGS: Chest: Previously identified left lower lobe embolus from 03/06/2021 is not visualized on the current exam. No new pulmonary embolus is seen. There is some endobronchial semisolid density in the right lower lobe bronchus. No consolidation bilaterally. No pneumothorax or pleural effusion. The visualized thyroid gland is unremarkable. There are subcentimeter mediastinal lymph nodes within the range of normal variation. Cardiac size is within normal limits; no pericardial effusion. Coronary artery calcifications are present. Mild scattered calcification along the aorta. No axillary lymphadenopathy is present. Abdomen/Pelvis: There is an enhancing left hepatic lesion measuring approximately 3 cm in diameter, previously characterized as a hemangioma. No intrahepatic biliary ductal dilatation. The gallbladder is contracted. The spleen, pancreas, and adrenal glands are within normal limits. Bilateral nephrograms are symmetric. Redemonstrated left renal hypodensities favoring cysts. No hydronephrosis. Vascular calcifications noted in the renal morena bilaterally. Few scattered tiny nonobstructing renal calculi are also suspected. No obstructing renal or ureteral calculi are present. The urinary bladder is unremarkable. The prostate gland is enlarged, measuring 5.3 cm in transverse diameter. The small and large bowel are unremarkable without evidence of obstruction or pericolonic inflammatory change. The appendix is unremarkable. No free fluid or free air is identified. There is atherosclerotic calcification along the aorta and iliac arteries. No retroperitoneal or pelvic lymphadenopathy is seen. Status post L5-S1 fusion. Fat-containing left inguinal hernia is present. CT/CT angio chest PE protocol IMPRESSION: 1. No pulmonary embolus identified. Previously seen left lower lobe embolus is not visualized. 2. Mild endobronchial semisolid material in the right lower lobe bronchus, which could be sequelae of aspiration. 3. Coronary artery calcifications. Correlation with cardiac risk factors is recommended. 4. No acute findings identified in the abdomen/pelvis.
--- NOTE | ~2021-03-12 | CT_ITS ---
EXAMINATION: CT HEAD WITHOUT CONTRAST CLINICAL INFORMATION: Decreased sensorium without focal findings COMPARISON: 03/07/2021 TECHNIQUE: Contiguous axial imaging was performed from the skull base to vertex without intravenous administration of contrast. This CT examination was performed using dose optimization techniques as appropriate, variously including the following: *Automated exposure control *Adjustment of mA and/or kV according to patient size (this includes techniques or standardized protocols for targeted exams where dose is matched to indication/reason for exam; i.e. extremities or head) *Use of iterative reconstruction technique DLP: 780 mGy-cm FINDINGS: There is no evidence of acute intracranial hemorrhage or territorial infarction. No abnormal mass effect or midline shift is seen. Rondon to white matter differentiation is well preserved. No extra-axial fluid collections are identified. The ventricles are normal in size. There is moderate periventricular white matter hypoattenuation consistent with chronic small vessel ischemic disease. The osseous structures and soft tissues are normal. The mastoid air cells and visualized portions of the paranasal sinuses are well aerated. CT/CT head/brain wo con IMPRESSION: No acute intracranial pathology.
--- NOTE | 2021-03-13 | ECG_ITS ---
Test Reason : CP Blood Pressure : / mmHG Vent. Rate : 080 BPM Atrial Rate : 080 BPM P-R Int : 166 ms QRS Dur : 086 ms QT Int : 388 ms P-R-T Axes : 039 -44 040 degrees QTc Int : 447 ms Normal sinus rhythm Left axis deviation Minimal voltage criteria for LVH, may be normal variant Abnormal ECG When compared with ECG of 07-MAR-2021 06:15, T wave inversion no longer evident in Inferior leads Referred By: Generic ED Physician Electronically Signed By:JONO SAMUEL MD
[2021-03-13 00:13] VITALS: BP 136/70; PULSE 80; RESP 20; TEMP 36.8; O2SAT 97; BMI 28.7
[2021-03-13 00:28] LABS: Glucose, Whole Blood 240 mg/dL (60-115)
[2021-03-13 00:44] LABS: MANUAL DIFF FLAG NO
[2021-03-13] MEDS: 0.9 % Sodium Chloride 2,000 ML 999 ML IV (00:44)
--- NOTE | 2021-03-13 00:44 | ED.CHESTPAIN ---
HPI - Chest Pain General Chief Complaint: Chest Pain Stated Complaint: chest pain, SOB Time Seen by Provider: 03/13/21 00:26 Source: patient Mode of arrival: ambulatory History of Present Illness HPI narrative: This is a 60-year-old male who presents with persistent chest pain and overall weakness and fatigue that he states has been ongoing since he was informed having a PE. He has been taking Lovenox as scheduled twice a day and denies any GI or symptoms. Patient states that the chest pain is associated with shortness of breath. Related Data Home Medications Medication Instructions Recorded Confirmed atorvastatin 40 mg tablet 40 mg PO BEDTIME 10/15/20 03/13/21 Lantus Solostar U-100 Insulin 50 unit SUBCUT BEDTIME 03/06/21 03/13/21 albuterol sulfate 2 puff INHALATION Q6H PRN 03/06/21 03/13/21 insulin lispro [Admelog SoloStar 0 unit SUBCUT TIDAC 03/06/21 03/13/21 U-100 Insulin] omeprazole 40 mg PO BID 03/06/21 03/13/21 oxycodone-acetaminophen 1 tab PO Q4H PRN 03/06/21 03/13/21 quetiapine 200 mg PO BEDTIME 03/06/21 03/13/21 apixaban 5 mg tablet 5 mg PO BID 03/12/21 03/13/21 Previous Rx's Medication Instructions Recorded metoprolol succinate 100 mg 100 mg PO DAILY #30 tab 08/28/20 tablet,extended release 24 hr nitroglycerin 0.4 mg sublingual 0.4 mg SUBLINGUAL Q5M PRN #10 tab 10/28/20 tablet blood sugar diagnostic #120 ea 12/11/20 lancets 28 gauge #100 ea 12/13/20 aspirin 81 mg tablet,delayed 81 mg PO DAILY 90 Days #90 tab 02/17/21 release oxycodone-acetaminophen 5 mg-325 1 tab PO .3 to 4 times a day PRN 03/06/21 mg tablet 15 Days #60 tab enoxaparin 85 mg SUBCUT Q12H #60 ml 03/08/21 lisinopril 2 mg PO DAILY 90 Days #90 tab 03/08/21 BLOOD PRESSURE MONITOR #1 ea 03/12/21 DIABETIC SHOES #2 ea 03/12/21 ROLLATOR #1 ea 03/12/21 SHOWER CHAIR #1 ea 03/12/21 Allergies Allergy/AdvReac Type Severity Reaction Status Date / Time nicotine AdvReac Unknown tachycardia, Verified 02/17/21 12:00 shaking Review of Systems Review of Systems: Pertinent positives and negatives as stated in HPI 10 point review of systems otherwise negative. 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 Low back pain Lumbar degenerative disc disease Obesity (BMI 30-39.9) Onychomycosis Pelvic pain in male Proteinuria Pure hypercholesterolemia PVD (peripheral vascular disease) Sleep apnea Smoker 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 Surgical History H/O colonoscopy History of ankle surgery History of arthroplasty of left knee History of esophagogastroduodenoscopy (EGD) History of heart artery stent History of inguinal hernia repair History of knee surgery History of lumbar surgery Hx of cataract surgery Family History Family History Father Cancer Mother Diabetes Social History Social History Alcohol intake: never Smoking Status: Current every day smoker Tobacco Type: Cigarette Years Smoked: 45 Use of substances other than those prescribed or required for medical reasons: No Advance Directives: Yes Advance Directives on File: Yes Advance Directives Date on File: 03/07/21 service: No Current occupational status: unemployed Physical Exam Vital Signs: Vital Signs: Last Vital Signs Temp 98.3 F 03/13/21 00:45 Pulse 79 03/13/21 00:45 Resp 18 03/13/21 02:00 BP 139/77 03/13/21 00:45 Pulse Ox 97 03/13/21 00:45 Body Mass Index 28.7 VITAL SIGNS: Reviewed. GENERAL: Well developed, well nourished, in no acute distress. HEAD: Normocephalic/atraumatic EYES: PERRLA, EOMI EARS: Ext canals without abnormality NOSE: Nares patent bilateral OROPHARYNX: no oral lesions noted, posterior pharynx clear, moist mucosa NECK: Supple, no adenopathy LUNGS: Normal breath sounds. No adventitious sounds or accessory muscle use. SpO2<97> CARDIOVASCULAR: Regular rate and rhythm without noted murmurs ABDOMEN: Soft, non-tender, non-distended with bowel sounds. MUSCULOSKELETAL: No tenderness, deformities, or effusions noted on gross inspection. EXTREMITIES: No cyanosis, clubbing or edema. SKIN: Inspection of the skin reveals no rashes, ulcerations, jaundice, pallor, or petechiae. NEUROLOGIC: Alert and oriented x 4. Strength and sensation to light touch were grossly intact x 4, no pronator drift, no facial asymmetry, cranial nerves 2-12 are grossly intact, otherwise no focal deficits Course Course Course Narrative: This is a 60-year-old male with history and clinical presentation of unclear etiology and patient alternating between threatening to leave and go [employer] if he does not get something for pain and then being compliant with proposed interventions. On review of all investigations to better explain patient's presentation as there are no evidence of increase load of PE, no evidence of pneumonia, EKG and high sensitivity troponin are negative for evidence of cardiac ischemia. On re-evaluation after patient received low-dose Dilaudid he has had complete resolution of any pain and is resting comfortably. Patient informed of all results and stable for discharge to home with recommendations that he follow up with his scheduled providers. MDM - Chest Pain Lab Data Result diagrams: 03/13/21 00:32 03/13/21 00:32 Labs: Lab Results 03/13/21 03/13/21 03/13/21 Range/Units 00:24 00:32 00:32 WBC 6.6 (4.8-10.8) X10*3/uL RBC 3.69 L (4.60-5.80) X10*6/uL Hgb 10.5 L (14.0-18.0) g/dl Hct 31.6 L (42-52) % MCV 85.6 (80-98) fL MCH 28.5 (27.0-33.0) pg MCHC 33.2 (31.0-36.0) g/dl RDW 13.4 (11.0-16.0) % Plt Count 261 (160-400) X10*3/uL MPV 9.5 (9.4-12.4) fL Immature Gran % (Auto) 0.6 H (0.0-0.4) % Neut % (Auto) 60.5 (45-73) % Lymph % (Auto) 27.8 (20-40) % [place] % (Auto) 9.0 (2-11) % Eos % (Auto) 1.8 (0-4) % Baso % (Auto) 0.3 (0-2) % Lymph # (Auto) 1.8 (1.2-4.9) X10*3/uL [place] # (Auto) 0.6 (0.1-1.2) X10*3/uL Eos # (Auto) 0.1 (0.0-0.4) X10*3/uL Baso # (Auto) 0.0 (0.0-0.2) X10*3/uL Abs Immat Gran (auto) 0.04 H (0.00-0.03) X10*3/uL Absolute Neuts (auto) 4.0 (2.0-8.3) X10*3/uL Absolute Nucleated RBC 0.000 (0.0-0.012) X10*3/uL Nucleated RBC % (auto) 0.0 (0.0-0.2) /100WBC Hold Blue Top SEE NOTE Sodium (135-145) mmol/L Potassium (3.3-5.1) mmol/L Chloride (96-108) mmol/L Carbon Dioxide (22-29) mmol/L Anion Gap (12-20) BUN (9-16) mg/dL Creatinine (0.5-1.4) mg/dL Estim Creat Clear Calc Estimated GFR POC Glucose 240 H (60-115) mg/dL Random Glucose (60-115) mg/dL Lactic Acid (0.5-2.0) mmol/L Calcium (8.4-10.2) mg/dL Total Bilirubin (0.0-1.0) mg/dL Direct Bilirubin (0.0-0.5) mg/dL AST (5-37) U/L ALT (0-40) U/L Alkaline Phosphatase (39-117) U/L Troponin I High Sens (<3.5-35.0) ng/L Total Protein (6.5-8.0) g/dL Albumin (3.5-5.0) g/dL COVID-19 ([facility]I) (Negative) COVID-19 Clin Com 03/13/21 03/13/21 03/13/21 Range/Units 00:32 00:32 00:32 WBC (4.8-10.8) X10*3/uL RBC (4.60-5.80) X10*6/uL Hgb (14.0-18.0) g/dl Hct (42-52) % MCV (80-98) fL MCH (27.0-33.0) pg MCHC (31.0-36.0) g/dl RDW (11.0-16.0) % Plt Count (160-400) X10*3/uL MPV (9.4-12.4) fL Immature Gran % (Auto) (0.0-0.4) % Neut % (Auto) (45-73) % Lymph % (Auto) (20-40) % [place] % (Auto) (2-11) % Eos % (Auto) (0-4) % Baso % (Auto) (0-2) % Lymph # (Auto) (1.2-4.9) X10*3/uL [place] # (Auto) (0.1-1.2) X10*3/uL Eos # (Auto) (0.0-0.4) X10*3/uL Baso # (Auto) (0.0-0.2) X10*3/uL Abs Immat Gran (auto) (0.00-0.03) X10*3/uL Absolute Neuts (auto) (2.0-8.3) X10*3/uL Absolute Nucleated RBC (0.0-0.012) X10*3/uL Nucleated RBC % (auto) (0.0-0.2) /100WBC Hold Blue Top Sodium 135 (135-145) mmol/L Potassium 3.7 (3.3-5.1) mmol/L Chloride 100 (96-108) mmol/L Carbon Dioxide 26 (22-29) mmol/L Anion Gap 13 (12-20) BUN 15 (9-16) mg/dL Creatinine 1.44 H (0.5-1.4) mg/dL Estim Creat Clear Calc 60.7 Estimated GFR 50 POC Glucose (60-115) mg/dL Random Glucose 238 H (60-115) mg/dL Lactic Acid (0.5-2.0) mmol/L Calcium 8.7 (8.4-10.2) mg/dL Total Bilirubin 0.2 (0.0-1.0) mg/dL Direct Bilirubin < 0.2 (0.0-0.5) mg/dL AST 20 (5-37) U/L ALT 30 (0-40) U/L Alkaline Phosphatase 72 (39-117) U/L Troponin I High Sens < 3.5 (<3.5-35.0) ng/L Total Protein 6.3 L (6.5-8.0) g/dL Albumin 4.0 (3.5-5.0) g/dL COVID-19 ([facility]) Negative (Negative) COVID-19 Clin Com See Note 03/13/21 Range/Units 00:32 WBC (4.8-10.8) X10*3/uL RBC (4.60-5.80) X10*6/uL Hgb (14.0-18.0) g/dl Hct (42-52) % MCV (80-98) fL MCH (27.0-33.0) pg MCHC (31.0-36.0) g/dl RDW (11.0-16.0) % Plt Count (160-400) X10*3/uL MPV (9.4-12.4) fL Immature Gran % (Auto) (0.0-0.4) % Neut % (Auto) (45-73) % Lymph % (Auto) (20-40) % [place] % (Auto) (2-11) % Eos % (Auto) (0-4) % Baso % (Auto) (0-2) % Lymph # (Auto) (1.2-4.9) X10*3/uL [place] # (Auto) (0.1-1.2) X10*3/uL Eos # (Auto) (0.0-0.4) X10*3/uL Baso # (Auto) (0.0-0.2) X10*3/uL Abs Immat Gran (auto) (0.00-0.03) X10*3/uL Absolute Neuts (auto) (2.0-8.3) X10*3/uL Absolute Nucleated RBC (0.0-0.012) X10*3/uL Nucleated RBC % (auto) (0.0-0.2) /100WBC Hold Blue Top Sodium (135-145) mmol/L Potassium (3.3-5.1) mmol/L Chloride (96-108) mmol/L Carbon Dioxide (22-29) mmol/L Anion Gap (12-20) BUN (9-16) mg/dL Creatinine (0.5-1.4) mg/dL Estim Creat Clear Calc Estimated GFR POC Glucose (60-115) mg/dL Random Glucose (60-115) mg/dL Lactic Acid 1.0 (0.5-2.0) mmol/L Calcium (8.4-10.2) mg/dL Total Bilirubin (0.0-1.0) mg/dL Direct Bilirubin (0.0-0.5) mg/dL AST (5-37) U/L ALT (0-40) U/L Alkaline Phosphatase (39-117) U/L Troponin I High Sens (<3.5-35.0) ng/L Total Protein (6.5-8.0) g/dL Albumin (3.5-5.0) g/dL COVID-19 ([facility]) (Negative) COVID-19 Clin Com ECG Data ECG #1: Attestation: I personally reviewed and interpreted this ECG as follows: Prior ECG tracings: available for review (03/07/2021 no acute changes on comparison) Interpretation: Sinus rhythm, HR -80, no evidence of acute ischemia, MA/QRS/QTC are within normal limits. Discharge Plan Discharge Clinical Impression: Atypical chest pain Patient Disposition: Home, Self-Care Instructions: Chest Pain (ED) Additional Instructions: 1. Resume all home medications as prescribed. 2. Follow-up with your primary care provider and/or your consumer loan manager today for re-evaluation. Return to the emergency department for any acute worsening of symptoms. Prescriptions: No Action metoprolol succinate 100 mg tablet extended release 24 hr 100 mg PO DAILY Qty: 30 RF: 5 nitroglycerin 0.4 mg tablet, sublingual 0.4 mg sublingual Q5M PRN (Reason: chest pain) Qty: 10 RF: 0 (DME) FreeStyle Lite Strips Strip See Rx Instructions .ROUTE .MEDSUPPLY Qty: 120 RF: 12 (DME) lancets [FreeStyle Lancets] 28 gauge misc See Rx Instructions .ROUTE .MEDSUPPLY Qty: 100 RF: 12 oxycodone-acetaminophen 5-325 mg tablet 1 tab PO .3 to 4 times a day PRN (Reason: pain) 15 Days Qty: 60 RF: 0 quetiapine 200 mg tablet 200 mg PO BEDTIME RF: 0 oxycodone-acetaminophen 5-325 mg tablet 1 tab PO Q4H PRN (Reason: Moderate Pain (Scale Score 5-6)) RF: 0 insulin lispro [Admelog SoloStar U-100 Insulin] 100 unit/mL insulin pen 0 unit subcut TIDAC RF: 0 Lantus Solostar U-100 Insulin 100 unit/mL (3 mL) insulin pen 50 unit subcut BEDTIME RF: 0 omeprazole 40 mg capsule,delayed release(DR/EC) 40 mg PO BID RF: 0 albuterol sulfate 90 mcg/actuation HFA aerosol inhaler 2 puff inhalation Q6H PRN (Reason: Respiratory Distress) RF: 0 enoxaparin 100 mg/mL Syringe 85 mg subcut Q12H Qty: 60 RF: 0 lisinopril 10 mg tablet 2 mg PO DAILY 90 Days Qty: 90 RF: 3 atorvastatin 40 mg tablet 40 mg PO BEDTIME RF: 0 Eliquis 5 mg tablet 5 mg PO BID RF: 0 (DME) SHOWER CHAIR See Rx Instructions .Route .MEDSUPPLY Qty: 1 RF: 0 (DME) ROLLATOR See Rx Instructions .Route .MEDSUPPLY Qty: 1 RF: 0 (DME) DIABETIC SHOES See Rx Instructions .Route .MEDSUPPLY Qty: 2 RF: 0 (DME) BLOOD PRESSURE MONITOR See Rx Instructions .Route .MEDSUPPLY Qty: 1 RF: 0 aspirin 81 mg tablet,delayed release (DR/EC) 81 mg PO DAILY 90 Days Qty: 90 RF: 3 Referrals: Physician,Unknown [Primary Care Provider] - 2 days
--- NOTE | 2021-03-13 00:44 | PC.NURSE ---
PT IS HOT TO TOUCH. PT REFUSES RECTAL TEMP AFTER MULTIPLE EDUCATIONS. I DON'T CARE IF IM DYING YOURE NOT GOING TO DO THAT TO ME .
[2021-03-13 00:45] VITALS: BP 139/77; PULSE 77; PULSE 79; RESP 18; TEMP 36.8; O2SAT 97
[2021-03-13 00:47] LABS: Basophils Percent Auto 0.3 % (0-2); Eosinophils Absolute Auto 0.1 X10*3/uL (0.0-0.4); Eosinophils Percent Auto 1.8 % (0-4); Hematocrit 31.6 % (42-52); Hemoglobin 10.5 g/dl (14.0-18.0); Imm Gran Abs Auto 0.04 X10*3/uL (0.00-0.03); Imm Gran Pct Auto 0.6 % (0.0-0.4); Lymphocytes Absolute Auto 1.8 X10*3/uL (1.2-4.9); Lymphocytes Percent Auto 27.8 % (20-40); Mean Corpuscular HGB Conc 33.2 g/dl (31.0-36.0); Mean Corpuscular Hemoglobin 28.5 pg (27.0-33.0); Mean Corpuscular Volume 85.6 fL (80-98); Mean Platelet Volume 9.5 fL (9.4-12.4); Monocytes Absolute Auto 0.6 X10*3/uL (0.1-1.2); Neutrophils Percent Auto 60.5 % (45-73); Platelet Count 261 X10*3/uL (160-400); Red Blood Count 3.69 X10*6/uL (4.60-5.80); Red Cell Distribution Width 13.4 % (11.0-16.0); White Blood Count 6.6 X10*3/uL (4.8-10.8)
[2021-03-13 01:00] LABS: COVID-19 Test Negative (Negative); IDNOW Serial# 9DD0AD1C
--- NOTE | 2021-03-13 01:00 | PC.NURSE ---
PT REFUSES ALL OTHER ASSESSMENTS UNTIL THIS SOFTWARE APPLICATIONS ARCHITECT GOES TO GET A REAL DOCTOR. AND GET SOMETHING FOR MY PAIN.
[2021-03-13 01:11] LABS: Alanine Aminotransferase 30 U/L (0-40); Alkaline Phosphatase 72 U/L (39-117); Anion Gap 13 (12-20); Aspartate Amino Transferase 20 U/L (5-37); Bilirubin Direct < 0.2 mg/dL (0.0-0.5); Bilirubin Total 0.2 mg/dL (0.0-1.0); Blood Urea Nitrogen 15 mg/dL (9-16); Calcium 8.7 mg/dL (8.4-10.2); Carbon Dioxide 26 mmol/L (22-29); Chloride 100 mmol/L (96-108); Creatinine Clr Calc Pharmacy 60.7; Estimated Glomerular Filt Rate 50; Glucose Random 238 mg/dL (60-115); Potassium 3.7 mmol/L (3.3-5.1); Sodium 135 mmol/L (135-145); Total Protein 6.3 g/dL (6.5-8.0)
[2021-03-13 01:16] LABS: Troponin-I High Sensitivity < 3.5 ng/L (<3.5-35.0)
--- NOTE | 2021-03-13 01:19 | PC.NURSE ---
PT WAS FOUND REMOVING SUPPLIES FROM IV CART. WHEN ASKED WHAT WAS GOING ON, PT STATED I COULDN'T FIND THE FUCKING CALL [facility]ORO. I WANT YOU TRANSFER ME TO [facility] . PT EDUCATED TO PROCESS OF HOW HOSPITAL TRANSFERS OCCUR AND HE MUST ALLOW FOR TESTING AND FULL ASSESSMENTS. IV CART MOVED TO [address] FOR PATIENT SAFETY. PT REFUSED TO ACKNOWLEDGE TEACHING. PT REMAINS VERBALLY AGGRESSIVE WITH STAFF AT THIS TIME. PT IS ORIENTATED AND ALERT X 3. PT SPOKE LUXEMBOURGER WITH BOTH PROVIDER AND THIS PLANNING AIDE. WHEN PATIENT WAS NOT PROVIDED WITH PAIN MANAMGENT PATIENT BEGAN SAYING THAT HE DID NOT SPEAK LUXEMBOURGER. DEVOPS CALLED TO BEDSIDE. PT REFUSES CT AT THIS TIME.
[2021-03-13] MEDS: Acetaminophen 325 MG TABLET 975 MG PO (01:43)
[2021-03-13] MEDS: HYDROmorphone HCl 0.5 MG/0.5 ML SYRINGE 0.25 MG IVPUSH (01:44)
--- NOTE | 2021-03-13 01:53 | PC.NURSE ---
PT CONTINUES TO REFUSE MONITORING EQUIPMENT AND VS. NOW OFF TO CT.
[2021-03-13 02:00] VITALS: RESP 18
[2021-03-13] MEDS: iohexoL 350 MG/ML 100 ML INFUS..BTL 85 ML IV (02:12)
== END 2021-03-13 05:53 | disposition home or self-care (01) ==
PROVIDERS: Emergency Provider Student in an Organized Health Care Education/Training Program
DX: R07.89 Other chest pain (principal); Z20.822 Contact with and (suspected) exposure to COVID-19; E11.9 Type 2 diabetes mellitus without complications; I10 Essential (primary) hypertension; E78.5 Hyperlipidemia, unspecified; F17.210 Nicotine dependence, cigarettes, uncomplicated; Z86.711 Personal history of pulmonary embolism; Z79.02 Long term (current) use of antithrombotics/antiplatelets; Z79.4 Long term (current) use of insulin; Z79.899 Other long term (current) drug therapy
CPT/HCPCS: 36415; 70450; 71275; 74177; 80053; 80076; 82248; 82947; 83605; 84484; 85025; 87040; 87635; 93005; 96361; 96374; 99284; 99285; J1170; Q9967

== ENCOUNTER → 2021-03-17 13:58 | Outpatient (BNVA) | payer OTHER, SELFPAY | PROVIDERS: Visit Provider Nurse Practitioner Family | DX: M96.1 Postlaminectomy syndrome, not elsewhere classified (principal); G89.29 Other chronic pain | CPT/HCPCS: 99212 ==

== ENCOUNTER 2021-03-18 19:47 | Emergency (ER) | payer OTHER, SELFPAY ==
--- NOTE | 2021-03-18 | ECG_ITS ---
Test Reason : CHEST PAIN Blood Pressure : / mmHG Vent. Rate : 080 BPM Atrial Rate : 080 BPM P-R Int : 168 ms QRS Dur : 084 ms QT Int : 374 ms P-R-T Axes : 044 -39 023 degrees QTc Int : 431 ms Normal sinus rhythm Left axis deviation Minimal voltage criteria for LVH, may be normal variant Abnormal ECG When compared with ECG of 13-MAR-2021 00:30, No significant change was found Referred By: Generic ED Physician Electronically Signed By:KEELEY CHAVEZ
--- NOTE | ~2021-03-18 | CT_ITS ---
EXAMINATION: CT ANGIOGRAM OF THE CHEST WITH AND WITHOUT CONTRAST (CT PULMONARY ANGIOGRAM FOR PE) CLINICAL INFORMATION: Reason for Exam Chest pain. PE? COMPARISON: CT chest 03/13/2021, 03/06/2021. Chest x-ray 02/26/2021 TECHNIQUE: Prior to contrast administration, noncontrast localization images were obtained. Subsequently, multidetector volumetric imaging was performed from the thoracic inlet to below the diaphragms following the administration of 80 mL Omnipaque 350 intravenous contrast. No contrast reaction reported Sagittal, coronal, and MIP oblique sagittal reformatted images were obtained on the CT workstation, uploaded to PACS, and reviewed. This CT examination was performed using dose optimization techniques as appropriate, variously including the following: *Automated exposure control *Adjustment of mA and/or kV according to patient size (this includes techniques or standardized protocols for targeted exams where dose is matched to indication/reason for exam; i.e. extremities or head) *Use of iterative reconstruction technique Total exam dose-length product 473 mGy-cm FINDINGS: QUALITY OF STUDY/CONTRAST BOLUS: Satisfactory. PULMONARY ARTERIES: No central or segmental pulmonary emboli. THORACIC AORTA: No aneurysm or dissection. LUNG: No focal consolidation, nodules or masses. PLEURA: No pleural effusion or pneumothorax. MEDIASTINUM: Normal heart size. No pericardial effusion. No hilar or mediastinal lymphadenopathy. No evidence of septal bowing or right heart strain. CHEST WALL/AXILLA: No axillary or internal mammary lymphadenopathy. OSSEOUS STRUCTURES: No acute or suspicious osseous abnormality. UPPER ABDOMEN: Unremarkable. No reflux of contrast into the hepatic veins to suggest elevated right heart pressures. CT/CT angio chest PE protocol IMPRESSION: No evidence of pulmonary embolism. No acute change of the chest. VTE: negative
--- NOTE | ~2021-03-18 | US_ITS ---
EXAMINATION: US VENOUS ULTRASOUND WITH DOPPLER LOWER EXTREMITY, BILATERAL CLINICAL INFORMATION: Bilateral lower extremity swelling. COMPARISON: 08/03/2019 TECHNIQUE: Ultrasound of the deep veins is performed from the hip to the calf with compression sonography and color and pulse Doppler assessment. Spectral analysis with color-flow imaging is performed. FINDINGS: RIGHT: There is a peripherally positioned filling defect within the popliteal vein, suggestive of chronic appearing deep venous thrombosis. There is otherwise normal venous compression and respiratory variation and augmented flow. The visualized common femoral vein, superficial femoral vein, profunda femoral vein, and the trifurcation region shows no evidence of deep venous thrombosis. There is no significant popliteal fossa cyst. LEFT: There is normal venous compression and respiratory variation and augmented flow. The visualized common femoral vein, superficial femoral vein, profunda femoral vein, popliteal vein, and the trifurcation region shows no evidence of deep venous thrombosis. There is no significant popliteal fossa cyst. US/US venous duplex LE BI IMPRESSION: Right popliteal vein nonocclusive peripheral filling defect suggestive of chronic deep venous thrombosis. No DVT demonstrated in the left lower extremity. This critical result was discussed with DAVID Hamilton by telephone at 03/18/2021 10:37 PM and it was ascertained that the content and urgency of the report was understood at the time of direct communication.
--- NOTE | ~2021-03-18 | XR_ITS ---
EXAMINATION: XR CHEST CLINICAL INFORMATION: Chest pain COMPARISON: CTA chest 03/13/2021 and chest x-ray 07/04/2020 TECHNIQUE: Frontal view of the chest was obtained. FINDINGS: Cardiac silhouette is normal in size. The lungs are adequately aerated. Similar mild asymmetric elevation of the right hemidiaphragm. There is no lobar consolidation. No pleural effusion or pneumothorax. XR/XR chest 1V IMPRESSION: No acute pulmonary pathology.
[2021-03-18 20:00] VITALS: BP 135/72; PULSE 80; RESP 20; TEMP 36.4; O2SAT 97
[2021-03-18 20:56] LABS: MANUAL DIFF FLAG NO
[2021-03-18 20:57] LABS: Basophils Percent Auto 0.2 % (0-2); Eosinophils Absolute Auto 0.1 X10*3/uL (0.0-0.4); Eosinophils Percent Auto 1.5 % (0-4); Hematocrit 32.8 % (42-52); Hemoglobin 10.9 g/dl (14.0-18.0); Imm Gran Abs Auto 0.07 X10*3/uL (0.00-0.03); Imm Gran Pct Auto 0.8 % (0.0-0.4); Lymphocytes Absolute Auto 2.3 X10*3/uL (1.2-4.9); Lymphocytes Percent Auto 24.4 % (20-40); Mean Corpuscular HGB Conc 33.2 g/dl (31.0-36.0); Mean Corpuscular Hemoglobin 28.8 pg (27.0-33.0); Mean Corpuscular Volume 86.8 fL (80-98); Mean Platelet Volume 9.8 fL (9.4-12.4); Monocytes Absolute Auto 0.9 X10*3/uL (0.1-1.2); Monocytes Percent Auto 9.2 % (2-11); Neutrophils Absolute Auto 5.9 X10*3/uL (2.0-8.3); Neutrophils Percent Auto 63.9 % (45-73); Platelet Count 332 X10*3/uL (160-400); Red Blood Count 3.78 X10*6/uL (4.60-5.80); Red Cell Distribution Width 13.6 % (11.0-16.0); White Blood Count 9.2 X10*3/uL (4.8-10.8)
[2021-03-18 21:16] LABS: Anion Gap 14 (12-20); Blood Urea Nitrogen 21 mg/dL (9-16); Calcium 9.4 mg/dL (8.4-10.2); Carbon Dioxide 20 mmol/L (22-29); Chloride 107 mmol/L (96-108); Estimated Glomerular Filt Rate 51; Glucose Random 149 mg/dL (60-115); Potassium 4.3 mmol/L (3.3-5.1); Sodium 137 mmol/L (135-145)
[2021-03-18 21:19] VITALS: BP 146/79; PULSE 67; RESP 16; TEMP 36.9; O2SAT 98; BMI 29.0
[2021-03-18 21:29] VITALS: PULSE 70
[2021-03-18 21:43] LABS: Troponin-I High Sensitivity < 3.5 ng/L (<3.5-35.0)
[2021-03-18 22:00] LABS: INTERNATIONAL NORM RATIO 0.9 (0.9-1.1); Prothrombin Time 10.5 SEC (10.8-13.0)
[2021-03-18 22:05] VITALS: RESP 19
[2021-03-18] MEDS: Morphine Sulfate 4 MG/ML CARTRIDGE IVPUSH (22:05)
[2021-03-18 22:09] LABS: B Type Natriuretic Peptide 84 pg/mL (<100)
[2021-03-18 22:10] LABS: Partial Thromboplastin Time 37.8 SEC (24.1-38.0)
--- NOTE | 2021-03-18 22:16 | ED.CHESTPAIN ---
HPI - Chest Pain General Chief Complaint: Chest Pain Stated Complaint: chest pain Time Seen by Provider: 03/18/21 21:36 Source: patient Mode of arrival: ambulatory Limitations: no limitations History of Present Illness HPI narrative: Patient presents to ED for chest pain since 19:00 patient described as pressure. Patient take 161 mg of aspirin and 4 nitrates and still having pressure-like chest pain. Patient diagnosed with PE last week and started on Lovenox. Patient states the past 3 days has had increased swelling in his legs and pain. Related Data Home Medications Medication Instructions Recorded Confirmed atorvastatin 40 mg tablet 40 mg PO BEDTIME 10/15/20 03/17/21 Lantus Solostar U-100 Insulin 50 unit SUBCUT BEDTIME 03/06/21 03/17/21 albuterol sulfate 2 puff INHALATION Q6H PRN 03/06/21 03/17/21 insulin lispro [Admelog SoloStar 0 unit SUBCUT TIDAC 03/06/21 03/17/21 U-100 Insulin] omeprazole 40 mg PO BID 03/06/21 03/17/21 quetiapine 200 mg PO BEDTIME 03/06/21 03/17/21 apixaban 5 mg tablet 5 mg PO BID 03/12/21 03/17/21 Previous Rx's Medication Instructions Recorded metoprolol succinate 100 mg 100 mg PO DAILY #30 tab 08/28/20 tablet,extended release 24 hr nitroglycerin 0.4 mg sublingual 0.4 mg SUBLINGUAL Q5M PRN #10 tab 10/28/20 tablet blood sugar diagnostic #120 ea 12/11/20 lancets 28 gauge #100 ea 12/13/20 aspirin 81 mg tablet,delayed 81 mg PO DAILY 90 Days #90 tab 02/17/21 release oxycodone-acetaminophen 5 mg-325 1 tab PO .3 to 4 times a day PRN 03/06/21 mg tablet 15 Days #60 tab enoxaparin 85 mg SUBCUT Q12H #60 ml 03/08/21 lisinopril 2 mg PO DAILY 90 Days #90 tab 03/08/21 BLOOD PRESSURE MONITOR #1 ea 03/12/21 DIABETIC SHOES #2 ea 03/12/21 ROLLATOR #1 ea 03/12/21 SHOWER CHAIR #1 ea 03/12/21 enoxaparin [Lovenox] 90 mg SUBCUT Q12H #60 ml 03/17/21 Allergies Allergy/AdvReac Type Severity Reaction Status Date / Time nicotine AdvReac Unknown tachycardia, Verified 03/17/21 14:21 shaking Review of Systems Review of Systems: Yes all other systems are reviewed and are negative Constitutional: Constitutional: Reports as per HPI and Reports no additional constitutional complaints Eyes: Eyes: Reports as per HPI and Reports no additional eye complaints ENT: Reports system reviewed and no additional complaints, except as documented and Reports as per HPI Cardiovascular: Cardiovascular: Reports as per HPI, Reports no additional cardiovascular complaints, Reports chest pain and Reports dyspnea Respiratory: Respiratory: Reports as per HPI, Reports no additional respiratory complaints and Reports dyspnea Gastrointestinal: Gastrointestinal: Reports as per HPI and Reports no additional gastrointestinal complaints Genitourinary: Genitourinary: Reports no additional male genitourinary complaints and Reports as per HPI Musculoskeletal: Musculoskeletal: Reports no additional musculoskeletal complaints and Reports as per HPI Comments: Bilateral leg swelling Neurologic: Reports system reviewed and no additional complaints, except as documented and Reports as per HPI Psychiatric: Psychiatric: Reports no additional psychiatric complaints PMFSH Past Medical History Medical History Anxiety Benign essential hypertension CAD (coronary artery disease) Chest pain Deep vein thrombosis (DVT) of right lower extremity Depression Essential hypertension GERD (gastroesophageal reflux disease) Hx pulmonary embolism Hyperlipidemia LDL goal <100 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 COVID-19 virus nursing home current use of insulin Low back pain Lumbar degenerative disc disease Obesity (BMI 30-39.9) Onychomycosis Pelvic pain in male Proteinuria Pure hypercholesterolemia PVD (peripheral vascular disease) Sleep apnea Smoker 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 Surgical History H/O colonoscopy History of ankle surgery History of arthroplasty of left knee History of esophagogastroduodenoscopy (EGD) History of heart artery stent History of inguinal hernia repair History of knee surgery History of lumbar surgery Hx of cataract surgery Family History Family History Father Cancer Mother Diabetes Social History Social History (Updated 03/17/21 @ 10:27 by Anitha Rios) Alcohol intake: current Alcohol intake frequency: holidays/special occasions only Alcohol type: beer Smoking Status: Current every day smoker Tobacco Type: Cigarette Years Smoked: 45 Smoked in Last 30 Days: Yes Use of substances other than those prescribed or required for medical reasons: No Advance Directives: Yes Advance Directives on File: Yes Advance Directives Date on File: 03/07/21 service: No Current occupational status: unemployed Physical Exam Vital Signs: Vital Signs: Last Vital Signs Temp 98.4 F 03/18/21 21:19 Pulse 71 03/18/21 23:04 Resp 16 03/19/21 00:20 BP 146/79 H 03/18/21 21:19 Pulse Ox 98 03/18/21 21:19 Body Mass Index 29.0 Const: General: cooperative, healthy appearing, comfortable, no acute distress, well developed, alert, awake and Physically active Orientation/consciousness: oriented to time and patient oriented x3 HENMT: Head: Yes normal to inspection, Yes No palpable skull fracture present, Yes normocephalic and Yes atraumatic Eyes: General: appearance normal, both eyes and all related structures Neck: Neck: Yes normal visual inspection, Yes full ROM, Yes no lymphadenopathy, Yes no meningeal signs, Yes trachea midline, Yes supple and No tender Chest: Chest palpation & inspection: normal inspection of the chest and normal palpation of entire chest wall Resp: Effort & Inspection: normal respiratory effort and able to speak in complete sentences Auscultation: clear to auscultation bilaterally Cardio: Jugular venous distension: no JVD Heart sounds: S1 normal heart sound present and S2 normal heart sound present GI: Inspection: Yes normal to inspection and No abdominal wall ecchymosis Palpation (GI): not firm, nontender, no guarding and not rigid : General: No CVA tenderness and Yes no CVA tenderness Back/Spine/Pelvis: Back: no CVA tenderness, No CVA tenderness and No back tenderness Skin: General skin exam: no rashes or lesions noted and elasticity normal Neuro: General: oriented to time, patient oriented x3, no meningeal signs and CN's II-XI intact bilaterally Cranial nerves: Yes CN's II-XII intact bilaterally Extrem: Other: Lower extremities positive for bilateral 1+ pitting edema. Negative for calf pain Psych: Appearance: grossly normal, well kempt and not disheveled Course Course Course Narrative: Patient will have a cardiac and pulmonary workup. Reevaluation(s) Reevaluation #1: Patient's EKG negative for STEMI. Chest x-ray negative for pneumonia. Due to patient having recent PE and not present with pressure-like chest pain was due repeat chest CTA. Nurse troponin negative. Patient still having pain. Patient given 6 of morphine. Patient already took the holidays 61 mg of aspirin and 4 nitrates. Patient also be sent for lower extremity ultrasound. BNP negative Reevaluation #2: Lower extremity ultrasound shows right chronic DVT. Left lower extremity ultrasound negative for DVT. Patient sent for chest CTA which came back negative for PE or pneumonia. Plan is to do repeat troponin and called Cardiology to see if this is unstable angina and if patient should be transferred or patient should be admitted for evaluation. Patient recent stress test showed some hypokinesis but normal ejection fraction. Patient given food in the ER due to episode of hypoglycemia Reevaluation #3: Patient did not want to wait for 2nd troponin results. Patient also did not want to wait for me to speak to cushion maker hand. Patient informed he might be having a heart attack patient states he would like to sign out against medical advice. Patient was explained risk of , decreased quality of life, disability and patient still wanted to sign against medical advice. Patient also had mild JOSEPH and wanted to repeat his chemistry after receiving fluids. Patient did not want wait for that either. Patient left the ER before signing AMA papers MDM - Chest Pain MDM Narrative Medical decision making narrative: JOSEPH. Chest pain Lab Data Result diagrams: 03/18/21 20:50 03/18/21 20:50 Labs: Lab Results 03/18/21 03/18/21 03/18/21 Range/Units 20:50 20:50 20:50 WBC 9.2 (4.8-10.8) X10*3/uL RBC 3.78 L (4.60-5.80) X10*6/uL Hgb 10.9 L (14.0-18.0) g/dl Hct 32.8 L (42-52) % MCV 86.8 (80-98) fL MCH 28.8 (27.0-33.0) pg MCHC 33.2 (31.0-36.0) g/dl RDW 13.6 (11.0-16.0) % Plt Count 332 D (160-400) X10*3/uL MPV 9.8 (9.4-12.4) fL Immature Gran % (Auto) 0.8 H (0.0-0.4) % Neut % (Auto) 63.9 (45-73) % Lymph % (Auto) 24.4 (20-40) % Gillespie % (Auto) 9.2 (2-11) % Eos % (Auto) 1.5 (0-4) % Baso % (Auto) 0.2 (0-2) % Lymph # (Auto) 2.3 (1.2-4.9) X10*3/uL Gillespie # (Auto) 0.9 (0.1-1.2) X10*3/uL Eos # (Auto) 0.1 (0.0-0.4) X10*3/uL Baso # (Auto) 0.0 (0.0-0.2) X10*3/uL Abs Immat Gran (auto) 0.07 H (0.00-0.03) X10*3/uL Absolute Neuts (auto) 5.9 (2.0-8.3) X10*3/uL Absolute Nucleated RBC 0.000 (0.0-0.012) X10*3/uL Nucleated RBC % (auto) 0.0 (0.0-0.2) /100WBC PT 10.5 L (10.8-13.0) SEC INR 0.9 (0.9-1.1) APTT 37.8 (24.1-38.0) SEC Hold Blue Top SEE NOTE Sodium 137 (135-145) mmol/L Potassium 4.3 (3.3-5.1) mmol/L Chloride 107 (96-108) mmol/L Carbon Dioxide 20 L (22-29) mmol/L Anion Gap 14 (12-20) BUN 21 H (9-16) mg/dL Creatinine 1.43 H (0.5-1.4) mg/dL Estim Creat Clear Calc TNP Estimated GFR 51 POC Glucose (60-115) mg/dL Random Glucose 149 H D (60-115) mg/dL Calcium 9.4 D (8.4-10.2) mg/dL Troponin I High Sens (<3.5-35.0) ng/L B-Natriuretic Peptide (<100) pg/mL 03/18/21 03/18/21 03/19/21 Range/Units 20:50 23:42 00:09 WBC (4.8-10.8) X10*3/uL RBC (4.60-5.80) X10*6/uL Hgb (14.0-18.0) g/dl Hct (42-52) % MCV (80-98) fL MCH (27.0-33.0) pg MCHC (31.0-36.0) g/dl RDW (11.0-16.0) % Plt Count (160-400) X10*3/uL MPV (9.4-12.4) fL Immature Gran % (Auto) (0.0-0.4) % Neut % (Auto) (45-73) % Lymph % (Auto) (20-40) % Gillespie % (Auto) (2-11) % Eos % (Auto) (0-4) % Baso % (Auto) (0-2) % Lymph # (Auto) (1.2-4.9) X10*3/uL Gillespie # (Auto) (0.1-1.2) X10*3/uL Eos # (Auto) (0.0-0.4) X10*3/uL Baso # (Auto) (0.0-0.2) X10*3/uL Abs Immat Gran (auto) (0.00-0.03) X10*3/uL Absolute Neuts (auto) (2.0-8.3) X10*3/uL Absolute Nucleated RBC (0.0-0.012) X10*3/uL Nucleated RBC % (auto) (0.0-0.2) /100WBC PT (10.8-13.0) SEC INR (0.9-1.1) APTT (24.1-38.0) SEC Hold Blue Top Sodium (135-145) mmol/L Potassium (3.3-5.1) mmol/L Chloride (96-108) mmol/L Carbon Dioxide (22-29) mmol/L Anion Gap (12-20) BUN (9-16) mg/dL Creatinine (0.5-1.4) mg/dL Estim Creat Clear Calc Estimated GFR POC Glucose 57 L* 86 (60-115) mg/dL Random Glucose (60-115) mg/dL Calcium (8.4-10.2) mg/dL Troponin I High Sens < 3.5 (<3.5-35.0) ng/L B-Natriuretic Peptide 84 (<100) pg/mL ECG Data ECG #1: Interpretation: Normal sinus rhythm. Particular rate 80. Peer interval 168. QRS 84. QTC 431. Negative STEMI Discharge Plan Discharge Clinical Impression: Chest pain Patient Disposition: Left Against Medical Advice Instructions: Chest Pain (ED), Acute Kidney Injury (DC) Additional Instructions: Return to the ED immediately for worsening chest pain, shortness of breath, calf pain, coughing up blood, fever, chills, or any other concerning symptoms. Prescriptions: No Action metoprolol succinate 100 mg tablet extended release 24 hr 100 mg PO DAILY Qty: 30 RF: 5 nitroglycerin 0.4 mg tablet, sublingual 0.4 mg sublingual Q5M PRN (Reason: chest pain) Qty: 10 RF: 0 (DME) FreeStyle Lite Strips Strip See Rx Instructions .ROUTE .MEDSUPPLY Qty: 120 RF: 12 (DME) lancets [FreeStyle Lancets] 28 gauge misc See Rx Instructions .ROUTE .MEDSUPPLY Qty: 100 RF: 12 oxycodone-acetaminophen 5-325 mg tablet 1 tab PO .3 to 4 times a day PRN (Reason: pain) 15 Days Qty: 60 RF: 0 quetiapine 200 mg tablet 200 mg PO BEDTIME RF: 0 insulin lispro [Admelog SoloStar U-100 Insulin] 100 unit/mL insulin pen 0 unit subcut TIDAC RF: 0 Lantus Solostar U-100 Insulin 100 unit/mL (3 mL) insulin pen 50 unit subcut BEDTIME RF: 0 omeprazole 40 mg capsule,delayed release(DR/EC) 40 mg PO BID RF: 0 albuterol sulfate 90 mcg/actuation HFA aerosol inhaler 2 puff inhalation Q6H PRN (Reason: Respiratory Distress) RF: 0 enoxaparin 100 mg/mL Syringe 85 mg subcut Q12H Qty: 60 RF: 0 lisinopril 10 mg tablet 2 mg PO DAILY 90 Days Qty: 90 RF: 3 enoxaparin [Lovenox] 100 mg/mL Syringe 90 mg SUBCUT Q12H Qty: 60 RF: 4 atorvastatin 40 mg tablet 40 mg PO BEDTIME RF: 0 Eliquis 5 mg tablet 5 mg PO BID RF: 0 (DME) SHOWER CHAIR See Rx Instructions .Route .MEDSUPPLY Qty: 1 RF: 0 (DME) ROLLATOR See Rx Instructions .Route .MEDSUPPLY Qty: 1 RF: 0 (DME) DIABETIC SHOES See Rx Instructions .Route .MEDSUPPLY Qty: 2 RF: 0 (DME) BLOOD PRESSURE MONITOR See Rx Instructions .Route .MEDSUPPLY Qty: 1 RF: 0 aspirin 81 mg tablet,delayed release (DR/EC) 81 mg PO DAILY 90 Days Qty: 90 RF: 3 Stand Alone Forms: Against Medical Advice Interventions: ED Discharge Assessment Last Done: 03/19/21 00:44 Discharge Date/Time: 03/19/21 00:30 Print Language: Bengali
[2021-03-18 22:59] VITALS: RESP 17
[2021-03-18] MEDS: 0.9 % Sodium Chloride 1,000 ML 999 ML IV ×2 (22:59→23:04)
[2021-03-18] MEDS: Morphine Sulfate 2 MG/ML CARTRIDGE IVPUSH (22:59)
[2021-03-18 23:04] VITALS: PULSE 71; RESP 16
[2021-03-18 23:46] LABS: Glucose, Whole Blood 57 mg/dL (60-115)
[2021-03-18] MEDS: iohexoL 350 MG/ML 100 ML INFUS..BTL 65 ML IV (23:46)
--- NOTE | 2021-03-18 23:51 | PC.NURSE ---
pt was complaining of hunger and requesting food stating that he thought his blood sugar was getting low as his hands were starting to shake. POC taken, BG= 57. GLADYS (Esequiel Freeman) notified. per GLADYS, pt to be given orange juice. no new orders at this time.
--- NOTE | 2021-03-19 00:05 | PC.NURSE ---
15min POC recheck = 86. MLP (Esequiel) aware. no new orders at this time. per MLP, pt ok to have food. [place] sandwich, crackers and juice given.
[2021-03-19 00:14] LABS: Glucose, Whole Blood 86 mg/dL (60-115)
[2021-03-19 00:20] VITALS: RESP 16
[2021-03-19 01:05] LABS: Alanine Aminotransferase 18 U/L (0-40); Albumin Level 4.5 g/dL (3.5-5.0); Alkaline Phosphatase 75 U/L (39-117); Anion Gap 16 (12-20); Aspartate Amino Transferase 15 U/L (5-37); Bilirubin Total 0.3 mg/dL (0.0-1.0); Blood Urea Nitrogen 19 mg/dL (9-16); Calcium 9.1 mg/dL (8.4-10.2); Carbon Dioxide 21 mmol/L (22-29); Chloride 104 mmol/L (96-108); Creatinine Clr Calc Pharmacy 65.1; Estimated Glomerular Filt Rate 54; Glucose Random 108 mg/dL (60-115); Potassium 4.6 mmol/L (3.3-5.1); Sodium 136 mmol/L (135-145); Total Protein 7.4 g/dL (6.5-8.0)
[2021-03-19 01:14] LABS: Troponin-I High Sensitivity 4.1 ng/L (<3.5-35.0)
== END 2021-03-19 00:30 | disposition left against medical advice (07) ==
PROVIDERS: Physician Assistant; Emergency Provider Internal Medicine; PCP Internal Medicine
DX: R07.9 Chest pain, unspecified (principal); N17.9 Acute kidney failure, unspecified; R60.0 Localized edema; E11.9 Type 2 diabetes mellitus without complications; E78.5 Hyperlipidemia, unspecified; F17.210 Nicotine dependence, cigarettes, uncomplicated; Z86.718 Personal history of other venous thrombosis and embolism; Z86.711 Personal history of pulmonary embolism; Z79.82 Long term (current) use of aspirin; Z79.4 Long term (current) use of insulin; Z79.02 Long term (current) use of antithrombotics/antiplatelets; Z79.01 Long term (current) use of anticoagulants; Z79.899 Other long term (current) drug therapy
CPT/HCPCS: 36415; 71045; 71275; 80048; 80053; 82947; 83880; 84484; 85025; 85610; 85730; 93005; 93970; 96361; 96374; 96376; 99285; J2270; Q9967

== ENCOUNTER 2021-03-28 22:10 | Emergency (ER) | payer OTHER, SELFPAY ==
--- NOTE | 2021-03-28 | ECG_ITS ---
Test Reason : CHEST PAIN Blood Pressure : / mmHG Vent. Rate : 084 BPM Atrial Rate : 084 BPM P-R Int : 156 ms QRS Dur : 086 ms QT Int : 376 ms P-R-T Axes : 037 -37 021 degrees QTc Int : 444 ms Normal sinus rhythm Left axis deviation Abnormal ECG When compared with ECG of 18-MAR-2021 19:55, No significant change was found Referred By: Generic ED Physician Electronically Signed By:Colin Costa
[2021-03-28 22:17] VITALS: BP 123/76; PULSE 86; RESP 18; TEMP 37.3; O2SAT 97; BMI 29.0
[2021-03-28 22:41] LABS: MANUAL DIFF FLAG NO
[2021-03-28 22:42] LABS: Basophils Percent Auto 0.1 % (0-2); Eosinophils Absolute Auto 0.1 X10*3/uL (0.0-0.4); Eosinophils Percent Auto 1.6 % (0-4); Hematocrit 31.1 % (42-52); Hemoglobin 10.4 g/dl (14.0-18.0); Imm Gran Abs Auto 0.09 X10*3/uL (0.00-0.03); Lymphocytes Absolute Auto 2.3 X10*3/uL (1.2-4.9); Lymphocytes Percent Auto 26.1 % (20-40); Mean Corpuscular HGB Conc 33.4 g/dl (31.0-36.0); Mean Corpuscular Hemoglobin 28.4 pg (27.0-33.0); Mean Platelet Volume 9.6 fL (9.4-12.4); Monocytes Absolute Auto 0.7 X10*3/uL (0.1-1.2); Monocytes Percent Auto 8.4 % (2-11); Neutrophils Absolute Auto 5.4 X10*3/uL (2.0-8.3); Neutrophils Percent Auto 62.8 % (45-73); Platelet Count 308 X10*3/uL (160-400); Red Blood Count 3.66 X10*6/uL (4.60-5.80); Red Cell Distribution Width 13.4 % (11.0-16.0); White Blood Count 8.7 X10*3/uL (4.8-10.8)
[2021-03-28 23:11] LABS: Troponin-I High Sensitivity 5.5 ng/L (<3.5-35.0)
[2021-03-28 23:18] LABS: Alanine Aminotransferase 13 U/L (0-40); Albumin Level 4.2 g/dL (3.5-5.0); Alkaline Phosphatase 69 U/L (39-117); Anion Gap 14 (12-20); Aspartate Amino Transferase 11 U/L (5-37); Bilirubin Direct < 0.2 mg/dL (0.0-0.5); Bilirubin Total 0.4 mg/dL (0.0-1.0); Blood Urea Nitrogen 12 mg/dL (9-16); Calcium 9.1 mg/dL (8.4-10.2); Carbon Dioxide 22 mmol/L (22-29); Chloride 98 mmol/L (96-108); Creatinine Clr Calc Pharmacy 54.6; Estimated Glomerular Filt Rate 44; Glucose Random 355 mg/dL (60-115); Potassium 4.4 mmol/L (3.3-5.1); Sodium 130 mmol/L (135-145); Total Protein 6.6 g/dL (6.5-8.0)
[2021-03-28 23:30] VITALS: BP 118/64; PULSE 73; RESP 19; O2SAT 95
--- NOTE | 2021-03-28 23:34 | ED.CHESTPAIN ---
HPI - Chest Pain General Chief Complaint: Chest Pain Stated Complaint: chest pain Time Seen by Provider: 03/28/21 23:34 Source: patient Mode of arrival: ambulatory History of Present Illness HPI narrative: Is a 60-year-old male who presents with complaints of dizziness and chest pressure. Patient states that he has recently been seen here in the emergency room and that ?they have not been able to figure out what is wrong?. Patient states that he saw his slab lifting engineer and that no further recommendations were made at that time and endorses that he underwent a stress test approximately 4 days ago (this information is not available within our EMR at this time). When patient is asked about timing of the chest pressure he states that it happens ?all of the time, sometimes when I am doing something, sometimes when I am not doing something?. In addition, he states that he has been having episodes of feeling dizzy when he lies down which he describes as the room ?spinning around his head?, but not when he is standing or walking and he denies any episodes. On review of the triage note patient states that he took 4 nitro every 7 minutes apart and that he has also taken a total 162 mg of aspirin. Related Data Home Medications Medication Instructions Recorded Confirmed atorvastatin 40 mg tablet 40 mg PO BEDTIME 10/15/20 03/17/21 Lantus Solostar U-100 Insulin 50 unit SUBCUT BEDTIME 03/06/21 03/17/21 albuterol sulfate 2 puff INHALATION Q6H PRN 03/06/21 03/17/21 omeprazole 40 mg PO BID 03/06/21 03/17/21 quetiapine 200 mg PO BEDTIME 03/06/21 03/17/21 Previous Rx's Medication Instructions Recorded metoprolol succinate 100 mg 100 mg PO DAILY #30 tab 08/28/20 tablet,extended release 24 hr nitroglycerin 0.4 mg sublingual 0.4 mg SUBLINGUAL Q5M PRN #10 tab 10/28/20 tablet blood sugar diagnostic #120 ea 12/11/20 lancets 28 gauge #100 ea 12/13/20 aspirin 81 mg tablet,delayed 81 mg PO DAILY 90 Days #90 tab 02/17/21 release enoxaparin 85 mg SUBCUT Q12H #60 ml 03/08/21 lisinopril 2 mg PO DAILY 90 Days #90 tab 05/15/21 BLOOD PRESSURE MONITOR #1 ea 03/12/21 DIABETIC SHOES #2 ea 03/12/21 ROLLATOR #1 ea 03/12/21 SHOWER CHAIR #1 ea 03/12/21 enoxaparin [Lovenox] 90 mg SUBCUT Q12H #60 ml 03/17/21 oxycodone-acetaminophen 5 mg-325 1 tab PO .3 to 4 times a day PRN 03/20/21 mg tablet 15 Days #60 tab insulin lispro 100 unit/mL 10 unit SUBCUT TID 30 Days #9 ml 03/22/21 subcutaneous pen apixaban 5 mg tablet 5 mg PO BID #60 tab 03/23/21 Allergies Allergy/AdvReac Type Severity Reaction Status Date / Time nicotine AdvReac Unknown tachycardia, Verified 03/28/21 23:23 shaking Review of Systems Review of Systems: Pertinent positives and negatives as stated in HPI and 10 point review of systems is otherwise negative. 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 Low back pain Lumbar degenerative disc disease Obesity (BMI 30-39.9) Onychomycosis Pelvic pain in male Proteinuria Pure hypercholesterolemia PVD (peripheral vascular disease) Sleep apnea Smoker 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 Surgical History H/O colonoscopy History of ankle surgery History of arthroplasty of left knee History of esophagogastroduodenoscopy (EGD) History of heart artery stent History of inguinal hernia repair History of knee surgery History of lumbar surgery Hx of cataract surgery Family History Family History Father Cancer Mother Diabetes Social History Social History Alcohol intake: current Alcohol intake frequency: holidays/special occasions only Alcohol type: beer Years Smoked: 46 Advance Directives: Yes Advance Directives on File: Yes Advance Directives Date on File: 03/07/21 service: No Current occupational status: unemployed Physical Exam Vital Signs: Vital Signs: Last Vital Signs Temp 99.1 F 03/28/21 22:17 Pulse 62 03/29/21 01:04 Resp 20 03/29/21 01:04 BP 141/73 H 03/29/21 01:04 Pulse Ox 98 03/29/21 01:04 Body Mass Index 29.0 VITAL SIGNS: Reviewed. GENERAL: Well developed, well nourished, in no acute distress. HEAD: Normocephalic/atraumatic EYES: PERRLA, EOMI OROPHARYNX: no oral lesions noted, posterior pharynx clear LUNGS: Normal breath sounds. No adventitious sounds or accessory muscle use. SpO2<98> CARDIOVASCULAR: Regular rate and rhythm without noted murmurs, no JVD or lower extremity edema. ABDOMEN: Obese, Soft, non-tender, non-distended with bowel sounds. MUSCULOSKELETAL: No tenderness, deformities, or effusions noted on gross inspection. EXTREMITIES: No cyanosis, clubbing or edema. SKIN: Inspection of the skin reveals no rashes NEUROLOGIC: Alert and oriented x 4. Strength and sensation to light touch were grossly intact x 4. Course Course Course Narrative: 60-year-old male with history and clinical presentation concerning for possible medication misuse in conjunction with the possibility of poorly controlled diabetes that may be contributing to a component of dehydration that is leading to some of the patient's vertigo like symptoms. On review of all lab work, imaging patient has been evaluated and assessed for VTE, cardiac ischemia, infection, anemia, intracranial pathology. Unfortunately, at this time I do not have access to patient's stress test, however he is highly concerned that there is something wrong with his heart and that ?we are not finding via?. Nurse has informed me the patient wishes to sign out AMA and I am awaiting return call from Cardiology at this time. 0210: Patient does not want to wait and wishes to sign out against medical advice, stating that we are unable to find out what is wrong, he is uncomfortable in his bed, he wants to get something to eat and drink?. Was explained to him that his symptoms of dizziness as well as the chest discomfort are concerning and that we are strongly recommending that he remain here in the emergency room until discussions with the slab lifting engineer. He is declining to do this and wishes to go home. MDM - Chest Pain Lab Data Result diagrams: 03/28/21 22:33 03/28/21 22:33 Labs: Lab Results 03/28/21 03/28/21 03/28/21 Range/Units 22:33 22:33 22:33 WBC 8.7 (4.8-10.8) X10*3/uL RBC 3.66 L (4.60-5.80) X10*6/uL Hgb 10.4 L (14.0-18.0) g/dl Hct 31.1 L (42-52) % MCV 85.0 (80-98) fL MCH 28.4 (27.0-33.0) pg MCHC 33.4 (31.0-36.0) g/dl RDW 13.4 (11.0-16.0) % Plt Count 308 (160-400) X10*3/uL MPV 9.6 (9.4-12.4) fL Immature Gran % (Auto) 1.0 H (0.0-0.4) % Neut % (Auto) 62.8 (45-73) % Lymph % (Auto) 26.1 (20-40) % Dewey % (Auto) 8.4 (2-11) % Eos % (Auto) 1.6 (0-4) % Baso % (Auto) 0.1 (0-2) % Lymph # (Auto) 2.3 (1.2-4.9) X10*3/uL Dewey # (Auto) 0.7 (0.1-1.2) X10*3/uL Eos # (Auto) 0.1 (0.0-0.4) X10*3/uL Baso # (Auto) 0.0 (0.0-0.2) X10*3/uL Abs Immat Gran (auto) 0.09 H (0.00-0.03) X10*3/uL Absolute Neuts (auto) 5.4 (2.0-8.3) X10*3/uL Absolute Nucleated RBC 0.000 (0.0-0.012) X10*3/uL Nucleated RBC % (auto) 0.0 (0.0-0.2) /100WBC Sodium 130 L (135-145) mmol/L Potassium 4.4 (3.3-5.1) mmol/L Chloride 98 (96-108) mmol/L Carbon Dioxide 22 (22-29) mmol/L Anion Gap 14 (12-20) BUN 12 (9-16) mg/dL Creatinine 1.61 H (0.5-1.4) mg/dL Estim Creat Clear Calc 54.6 Estimated GFR 44 Random Glucose 355 H* (60-115) mg/dL Calcium 9.1 (8.4-10.2) mg/dL Total Bilirubin 0.4 (0.0-1.0) mg/dL Direct Bilirubin < 0.2 (0.0-0.5) mg/dL AST 11 (5-37) U/L ALT 13 (0-40) U/L Alkaline Phosphatase 69 (39-117) U/L Troponin I High Sens 5.5 (<3.5-35.0) ng/L Total Protein 6.6 (6.5-8.0) g/dL Albumin 4.2 (3.5-5.0) g/dL 03/29/21 Range/Units 01:11 WBC (4.8-10.8) X10*3/uL RBC (4.60-5.80) X10*6/uL Hgb (14.0-18.0) g/dl Hct (42-52) % MCV (80-98) fL MCH (27.0-33.0) pg MCHC (31.0-36.0) g/dl RDW (11.0-16.0) % Plt Count (160-400) X10*3/uL MPV (9.4-12.4) fL Immature Gran % (Auto) (0.0-0.4) % Neut % (Auto) (45-73) % Lymph % (Auto) (20-40) % Dewey % (Auto) (2-11) % Eos % (Auto) (0-4) % Baso % (Auto) (0-2) % Lymph # (Auto) (1.2-4.9) X10*3/uL Dewey # (Auto) (0.1-1.2) X10*3/uL Eos # (Auto) (0.0-0.4) X10*3/uL Baso # (Auto) (0.0-0.2) X10*3/uL Abs Immat Gran (auto) (0.00-0.03) X10*3/uL Absolute Neuts (auto) (2.0-8.3) X10*3/uL Absolute Nucleated RBC (0.0-0.012) X10*3/uL Nucleated RBC % (auto) (0.0-0.2) /100WBC Sodium (135-145) mmol/L Potassium (3.3-5.1) mmol/L Chloride (96-108) mmol/L Carbon Dioxide (22-29) mmol/L Anion Gap (12-20) BUN (9-16) mg/dL Creatinine (0.5-1.4) mg/dL Estim Creat Clear Calc Estimated GFR Random Glucose (60-115) mg/dL Calcium (8.4-10.2) mg/dL Total Bilirubin (0.0-1.0) mg/dL Direct Bilirubin (0.0-0.5) mg/dL AST (5-37) U/L ALT (0-40) U/L Alkaline Phosphatase (39-117) U/L Troponin I High Sens 5.0 (<3.5-35.0) ng/L Total Protein (6.5-8.0) g/dL Albumin (3.5-5.0) g/dL Discharge Plan Discharge Clinical Impression: Atypical chest pain Patient Disposition: Home, Self-Care Additional Instructions: Resume all home medications as prescribed. Follow-up with your slab lifting engineer at your earliest convenience within the next 1-2 days. Return to the ER for any acute worsening of your symptoms. Prescriptions: No Action metoprolol succinate 100 mg tablet extended release 24 hr 100 mg PO DAILY Qty: 30 RF: 5 nitroglycerin 0.4 mg tablet, sublingual 0.4 mg sublingual Q5M PRN (Reason: chest pain) Qty: 10 RF: 0 (DME) FreeStyle Lite Strips Strip See Rx Instructions .ROUTE .MEDSUPPLY Qty: 120 RF: 12 (DME) lancets [FreeStyle Lancets] 28 gauge misc See Rx Instructions .ROUTE .MEDSUPPLY Qty: 100 RF: 12 oxycodone-acetaminophen 5-325 mg tablet 1 tab PO .3 to 4 times a day PRN (Reason: pain) 15 Days Qty: 60 RF: 0 insulin lispro [Admelog SoloStar U-100 Insulin] 100 unit/mL insulin pen 10 unit subcut TID 30 Days Qty: 9 RF: 3 apixaban [Eliquis] 5 mg tablet 5 mg PO BID Qty: 60 RF: 2 quetiapine 200 mg tablet 200 mg PO BEDTIME RF: 0 Lantus Solostar U-100 Insulin 100 unit/mL (3 mL) insulin pen 50 unit subcut BEDTIME RF: 0 omeprazole 40 mg capsule,delayed release(DR/EC) 40 mg PO BID RF: 0 albuterol sulfate 90 mcg/actuation HFA aerosol inhaler 2 puff inhalation Q6H PRN (Reason: Respiratory Distress) RF: 0 enoxaparin 100 mg/mL Syringe 85 mg subcut Q12H Qty: 60 RF: 0 lisinopril 10 mg tablet 2 mg PO DAILY 90 Days Qty: 90 RF: 3 enoxaparin [Lovenox] 100 mg/mL Syringe 90 mg SUBCUT Q12H Qty: 60 RF: 4 atorvastatin 40 mg tablet 40 mg PO BEDTIME RF: 0 (DME) SHOWER CHAIR See Rx Instructions .Route .MEDSUPPLY Qty: 1 RF: 0 (DME) ROLLATOR See Rx Instructions .Route .MEDSUPPLY Qty: 1 RF: 0 (DME) DIABETIC SHOES See Rx Instructions .Route .MEDSUPPLY Qty: 2 RF: 0 (DME) BLOOD PRESSURE MONITOR See Rx Instructions .Route .MEDSUPPLY Qty: 1 RF: 0 aspirin 81 mg tablet,delayed release (DR/EC) 81 mg PO DAILY 90 Days Qty: 90 RF: 3 Referrals: Cecilio De Paz MD [Primary Care Provider] - 2 days Juancho Sainz MD [Physician] - 2 days (Re-evaluation for 3 visits to the emergency room for chest pain, no acute changes noted on EKG and troponins are flat. Patient has also been evaluated for infection, PE but insists that ?nothing is being done?. Attempted to discuss case with Dr. Costa and patient signed out AMA.)
[2021-03-29 01:04] VITALS: BP 141/73; PULSE 62; RESP 20; O2SAT 98
[2021-03-29] MEDS: 0.9 % Sodium Chloride 2,000 ML 999 ML IV (01:12)
--- NOTE | 2021-03-29 02:29 | PC.NURSE ---
Pt requesting to leave, Dr Nunez to bedside, discussed plan of care with pt. pt aaox4, is aware that if he is to leave at this time it will be AMA. Pt agrees to leave AMA. IV removed. Provider discusses risks of leaving AMA, pt expresses understanding. While Dr Nunez is completing AMA paperwork, pt walks out of ED prior to signing.
== END 2021-03-29 02:32 | disposition home or self-care (01) ==
PROVIDERS: Emergency Provider Student in an Organized Health Care Education/Training Program; PCP Internal Medicine
DX: R07.89 Other chest pain (principal); R42 Dizziness and giddiness; I10 Essential (primary) hypertension; E11.9 Type 2 diabetes mellitus without complications; E78.5 Hyperlipidemia, unspecified; Z86.711 Personal history of pulmonary embolism; Z79.4 Long term (current) use of insulin; Z79.01 Long term (current) use of anticoagulants; Z79.82 Long term (current) use of aspirin; Z79.899 Other long term (current) drug therapy
CPT/HCPCS: 36415; 80048; 80076; 84484; 85025; 93005; 96360; 96361; 99284

== ENCOUNTER 2021-05-12 10:08 | Emergency (ER) | payer OTHER, SELFPAY ==
--- NOTE | ~2021-05-12 | XR_ITS ---
EXAMINATION: XR CHEST CLINICAL INFORMATION: Chest pain, cough COMPARISON: Chest radiographs 03/18/2021, 07/04/2020 TECHNIQUE: Portable upright AP view of the chest was obtained. FINDINGS: The lungs are clear. The vascularity is normal. The heart is normal in size. There is no vascular congestion or infiltrate or effusion. The hilar and mediastinal contours are unremarkable. Probable calcific tendinosis adjacent to left humeral head. No acute bony abnormality. XR/XR chest 1V IMPRESSION: Lungs clear.
[2021-05-12 10:17] VITALS: BP 124/77; PULSE 73; RESP 14; TEMP 36.6; O2SAT 97; BMI 29.7
--- NOTE | 2021-05-12 10:42 | ECG_ITS ---
Test Reason : CHEST PAIN Blood Pressure : / mmHG Vent. Rate : 063 BPM Atrial Rate : 063 BPM P-R Int : 166 ms QRS Dur : 082 ms QT Int : 436 ms P-R-T Axes : 050 -35 -20 degrees QTc Int : 446 ms Normal sinus rhythm Left axis deviation Nonspecific T wave abnormality Abnormal ECG When compared with ECG of 12-MAY-2021 09:56, No significant change was found Referred By: Yuli Henderson Electronically Signed By:JONO SAMUEL MD
--- NOTE | 2021-05-12 11:09 | ED.CHESTPAIN ---
HPI - Chest Pain General Chief Complaint: Chest Pain Stated Complaint: CHEST PAIN Time Seen by Provider: 05/12/21 10:26 Source: patient Mode of arrival: ambulatory History of Present Illness HPI narrative: 60-year-old male with a past medical history of anxiety, HTN, CAD, DVT/PE on Lovenox, depression, GERD, HLD, DM, COPD on 2L NC, presenting to the ED from oncology office today after follow-up appointment c/o stabbing chest pain which has been intermittent x4 months, worsening during appointment while at rest, mildly relieved with SL Nitro. Admits has been taking Nitro daily with minimal relief. States he is supposed to have cardiac catheterization at [facility] sometime this week. Denies missing any doses of his Lovenox. Reports baseline SOB from COPD. Also reports cough, and intermittent lightheadedness/dizziness. Denies fever, chills, abdominal pain, nausea/vomiting, LE edema MD complaint: chest pain Related Data Home Medications Medication Instructions Recorded Confirmed quetiapine 200 mg PO BEDTIME 03/06/21 05/06/21 Previous Rx's Medication Instructions Recorded lancets 28 gauge #100 ea 12/13/20 enoxaparin 85 mg SUBCUT Q12H #60 ml 03/08/21 BLOOD PRESSURE MONITOR #1 ea 03/12/21 DIABETIC SHOES #2 ea 03/12/21 ROLLATOR #1 ea 03/12/21 SHOWER CHAIR #1 ea 03/12/21 oxycodone-acetaminophen 5 mg-325 1 tab PO .3 to 4 times a day PRN 04/30/21 mg tablet 15 Days #60 tab ProAir HFA 90 mcg/actuation 2 puff INHALATION Q6H PRN #8.5 g NS 05/01/21 aerosol inhaler apixaban 5 mg tablet 5 mg PO BID #60 tab 05/01/21 aspirin 81 mg tablet,delayed 81 mg PO DAILY 90 Days #90 tab 05/01/21 release atorvastatin 40 mg tablet 40 mg PO BEDTIME #30 tab 05/01/21 insulin glargine 100 unit/mL (3 50 unit SUBCUT BEDTIME #15 ml 05/01/21 mL) subcutaneous pen insulin lispro 100 unit/mL 10 unit SUBCUT TID 30 Days #9 ml 05/01/21 subcutaneous pen lisinopril 10 mg tablet 2 mg PO DAILY 90 Days #90 tab 05/01/21 metoprolol succinate 100 mg 100 mg PO DAILY #30 tab 05/01/21 tablet,extended release 24 hr nitroglycerin 0.4 mg sublingual 0.4 mg SUBLINGUAL Q5M PRN #10 tab 05/01/21 tablet omeprazole 40 mg capsule,delayed 40 mg PO DAILY #30 cap 05/01/21 release blood sugar diagnostic #120 ea 05/05/21 quetiapine 200 mg tablet 200 mg PO BID #180 tab 05/05/21 enoxaparin [Lovenox] 90 mg SUBCUT Q12H #60 ml 05/12/21 Allergies Allergy/AdvReac Type Severity Reaction Status Date / Time nicotine AdvReac Unknown tachycardia, Verified 05/06/21 11:00 shaking Review of Systems Review of Systems: Constitutional: No Fever, No Chills, No Fatigue, No Malaise Cardiovascular: +Chest Pain, + SOB, No Dyspnea on Exertion, No Orthopnea, No Edema Respiratory: + Cough, No Sputum, No Wheezing Gastrointestinal: No Nausea, No Vomiting, No Diarrhea, No Abdominal pain Genitourinary: No Dysuria, No Hematuria Musculoskeletal: No joint pain, No Myalgias Skin: No Skin Lesions, No rash Neuro: No Weakness, No Numbness, + Dizziness, +Lightheadedness, No Headache Yes all other systems are reviewed and are negative PMFSH Past Medical History Attestation statement: The following information was validated with the patient. 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 Low back pain Lumbar degenerative disc disease Obesity (BMI 30-39.9) Onychomycosis Pelvic pain in male Proteinuria Pure hypercholesterolemia PVD (peripheral vascular disease) Sleep apnea Smoker 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 Surgical History H/O colonoscopy History of ankle surgery History of arthroplasty of left knee History of esophagogastroduodenoscopy (EGD) History of heart artery stent History of inguinal hernia repair History of knee surgery History of lumbar surgery Hx of cataract surgery Family History Family History (Updated 05/06/21 @ 10:11 by ADITHYA Vega) Father Cancer Mother Diabetes Social History Social History (Updated 05/06/21 @ 10:11 by ADITHYA Vega) Housing: Apartment Alcohol intake: current Alcohol intake frequency: holidays/special occasions only Alcohol type: beer Patient Tobacco Use Status: Former Tobacco user Advance Directives Date on File: 03/07/21 service: No Current occupational status: unemployed Physical Exam Vital Signs: Vital Signs: Last Vital Signs Temp 98.2 F 05/12/21 12:37 Pulse 59 05/12/21 12:41 Resp 16 05/12/21 12:37 BP 145/88 H 05/12/21 12:41 Pulse Ox 100 05/12/21 12:37 Oxygen Flow Rate 2 05/12/21 10:17 Body Mass Index 29.7 Const: General: cooperative, healthy appearing and no acute distress Orientation/consciousness: patient oriented x3 Limitations: no limitations HENMT: Head: Yes normal to inspection Ears: hearing grossly normal bilaterally General nose exam: Normal external nose present Face and sinus: Yes normal facial exam Eyes: General: appearance normal, both eyes and all related structures EOM: EOMs intact bilaterally Neck: Neck: Yes normal visual inspection and Yes no meningeal signs Resp: Effort & Inspection: normal respiratory effort Auscultation: clear to auscultation bilaterally Cardio: Rate: regular rate Heart sounds: S1 normal heart sound present and S2 normal heart sound present GI: Inspection: Yes normal to inspection Palpation (GI): Soft to palpation, nontender, no guarding and not rigid Skin: Rashes: no rashes Wounds: no wounds Neuro: General: patient oriented x3 and no meningeal signs Extrem: General: Yes normal to inspection, Yes no pedal edema and Yes no calf tenderness Course Course Course Narrative: -no leukocytosis, H&H stable, renal function at patient's baseline, initial troponin 4.6 > will obtain 3 hour repeat XR chest 1V IMPRESSION: Lungs clear. -1311--case discussed with cardiology Dr. Abarca who recommended serial troponin, if no delta can be discharged home to follow-up as scheduled -1346--patient would like to leave against medical advice. Discussed with patient risk of leaving prior to complete workup, risk including , paralysis, permanent disability, decreased quality of life, etc. patient is alert and oriented x3, competent to make his own decision MDM - Chest Pain MDM Narrative Medical decision making narrative: 60-year-old male with a past medical history of anxiety, HTN, CAD, DVT/PE on Lovenox, depression, GERD, HLD, DM, COPD on 2L NC, presenting to the ED from oncology office today after follow-up appointment c/o stabbing chest pain which has been intermittent x4 months, worsening during appointment while at rest, mildly relieved with SL Nitro. On exam vital signs stable, NAD/nontoxic, lungs CTA, abdomen soft nontender, LE edema. Concern for unstable angina vs ACS vs COPD vs metabolic/infectious etiology. Lower concern for DVT/PE as patient is anticoagulated and not miss any doses of his Lovenox. Plan: EKG, labs, CXR, UA, consult cardiology, reassess Medical Records Data Attestation: I reviewed the patient's medical records. Lab Data Attestation: I reviewed the patient's lab results. Result diagrams: 05/12/21 11:48 05/12/21 11:48 Labs: Lab Results 05/12/21 05/12/21 05/12/21 Range/Units 11:48 11:48 11:48 WBC 5.4 (4.8-10.8) X10*3/uL RBC 3.65 L (4.60-5.80) X10*6/uL Hgb 10.4 L (14.0-18.0) g/dl Hct 32.4 L (42-52) % MCV 88.8 (80-98) fL MCH 28.5 (27.0-33.0) pg MCHC 32.1 (31.0-36.0) g/dl RDW 14.8 (11.0-16.0) % Plt Count 319 (160-400) X10*3/uL MPV 10.0 (9.4-12.4) fL Immature Gran % (Auto) 0.6 H (0.0-0.4) % Neut % (Auto) 58.2 (45-73) % Lymph % (Auto) 27.1 (20-40) % [place] % (Auto) 11.3 H (2-11) % Eos % (Auto) 2.6 (0-4) % Baso % (Auto) 0.2 (0-2) % Lymph # (Auto) 1.5 (1.2-4.9) X10*3/uL [place] # (Auto) 0.6 (0.1-1.2) X10*3/uL Eos # (Auto) 0.1 (0.0-0.4) X10*3/uL Baso # (Auto) 0.0 (0.0-0.2) X10*3/uL Abs Immat Gran (auto) 0.03 (0.00-0.03) X10*3/uL Absolute Neuts (auto) 3.1 (2.0-8.3) X10*3/uL Absolute Nucleated RBC 0.000 (0.0-0.012) X10*3/uL Nucleated RBC % (auto) 0.0 (0.0-0.2) /100WBC PT (9.9-13.0) SEC INR (0.9-1.1) APTT (24.1-38.0) SEC Sodium 136 (135-145) mmol/L Potassium 4.3 (3.3-5.1) mmol/L Chloride 102 (96-108) mmol/L Carbon Dioxide 25 (22-29) mmol/L Anion Gap 13 (12-20) BUN 20 H D (9-16) mg/dL Creatinine 1.47 H (0.5-1.4) mg/dL Estim Creat Clear Calc 62.2 Estimated GFR 49 Random Glucose 139 H D (60-115) mg/dL Calcium 8.8 (8.4-10.2) mg/dL Magnesium 2.0 (1.6-2.6) mg/dL Total Bilirubin 0.3 (0.0-1.0) mg/dL Direct Bilirubin < 0.2 (0.0-0.5) mg/dL AST 16 D (5-37) U/L ALT 18 (0-40) U/L Alkaline Phosphatase 77 (39-117) U/L Troponin I High Sens 4.6 (<3.5-35.0) ng/L B-Natriuretic Peptide (<100) pg/mL Total Protein 7.4 (6.5-8.0) g/dL Albumin 4.4 (3.5-5.0) g/dL COVID-19 ([facility]) (Negative) COVID-19 Clin Com 05/12/21 05/12/21 05/12/21 Range/Units 11:48 11:48 11:48 WBC (4.8-10.8) X10*3/uL RBC (4.60-5.80) X10*6/uL Hgb (14.0-18.0) g/dl Hct (42-52) % MCV (80-98) fL MCH (27.0-33.0) pg MCHC (31.0-36.0) g/dl RDW (11.0-16.0) % Plt Count (160-400) X10*3/uL MPV (9.4-12.4) fL Immature Gran % (Auto) (0.0-0.4) % Neut % (Auto) (45-73) % Lymph % (Auto) (20-40) % [place] % (Auto) (2-11) % Eos % (Auto) (0-4) % Baso % (Auto) (0-2) % Lymph # (Auto) (1.2-4.9) X10*3/uL [place] # (Auto) (0.1-1.2) X10*3/uL Eos # (Auto) (0.0-0.4) X10*3/uL Baso # (Auto) (0.0-0.2) X10*3/uL Abs Immat Gran (auto) (0.00-0.03) X10*3/uL Absolute Neuts (auto) (2.0-8.3) X10*3/uL Absolute Nucleated RBC (0.0-0.012) X10*3/uL Nucleated RBC % (auto) (0.0-0.2) /100WBC PT 10.8 (9.9-13.0) SEC INR 1.0 (0.9-1.1) APTT 44.0 H (24.1-38.0) SEC Sodium (135-145) mmol/L Potassium (3.3-5.1) mmol/L Chloride (96-108) mmol/L Carbon Dioxide (22-29) mmol/L Anion Gap (12-20) BUN (9-16) mg/dL Creatinine (0.5-1.4) mg/dL Estim Creat Clear Calc Estimated GFR Random Glucose (60-115) mg/dL Calcium (8.4-10.2) mg/dL Magnesium (1.6-2.6) mg/dL Total Bilirubin (0.0-1.0) mg/dL Direct Bilirubin (0.0-0.5) mg/dL AST (5-37) U/L ALT (0-40) U/L Alkaline Phosphatase (39-117) U/L Troponin I High Sens (<3.5-35.0) ng/L B-Natriuretic Peptide 29 (<100) pg/mL Total Protein (6.5-8.0) g/dL Albumin (3.5-5.0) g/dL COVID-19 ([facility]) Negative (Negative) COVID-19 Clin Com See Note Discharge Plan Discharge Clinical Impression: Atypical chest pain Patient Disposition: Left Against Medical Advice Instructions: Chest Pain (ED) Additional Instructions: Your blood work was reassuring today in the emergency department however he left against medical advice and did not have your repeat blood tests to ensure that your heart enzyme is okay It is important for you to follow-up with her monogram and letter paster, and obtain a cardiac catheterization that is supposed to be this week If your symptoms persist or worsen, become unbearable, if shortness of breath, fever, chills, or swelling in her legs please return to the ED Your taking upon yourself the risk of by leaving prior to your complete workup Prescriptions: No Action (DME) lancets [FreeStyle Lancets] 28 gauge misc See Rx Instructions .ROUTE .MEDSUPPLY Qty: 100 RF: 12 oxycodone-acetaminophen 5-325 mg tablet 1 tab PO .3 to 4 times a day PRN (Reason: pain) 15 Days Qty: 60 RF: 0 albuterol sulfate [ProAir HFA] 90 mcg/actuation HFA aerosol inhaler 2 puff inhalation Q6H PRN (Reason: Respiratory Distress) Qty: 8.5 RF: 3 Eliquis 5 mg tablet 5 mg PO BID Qty: 60 RF: 3 aspirin 81 mg tablet,delayed release (DR/EC) 81 mg PO DAILY 90 Days Qty: 90 RF: 3 atorvastatin 40 mg tablet 40 mg PO BEDTIME Qty: 30 RF: 3 omeprazole 40 mg capsule,delayed release(DR/EC) 40 mg PO DAILY Qty: 30 RF: 3 nitroglycerin 0.4 mg tablet, sublingual 0.4 mg sublingual Q5M PRN (Reason: chest pain) Qty: 10 RF: 0 metoprolol succinate 100 mg tablet extended release 24 hr 100 mg PO DAILY Qty: 30 RF: 5 lisinopril 10 mg tablet 2 mg PO DAILY 90 Days Qty: 90 RF: 3 insulin lispro [Admelog SoloStar U-100 Insulin] 100 unit/mL insulin pen 10 unit subcut TID 30 Days Qty: 9 RF: 3 Lantus Solostar U-100 Insulin 100 unit/mL (3 mL) insulin pen 50 unit subcut BEDTIME Qty: 15 RF: 3 (DME) FreeStyle Lite Strips Strip See Rx Instructions .ROUTE .MEDSUPPLY Qty: 120 RF: 12 quetiapine 200 mg tablet 200 mg PO BID Qty: 180 RF: 1 quetiapine 200 mg tablet 200 mg PO BEDTIME RF: 0 enoxaparin 100 mg/mL Syringe 85 mg subcut Q12H Qty: 60 RF: 0 enoxaparin [Lovenox] 100 mg/mL Syringe 90 mg SUBCUT Q12H Qty: 60 RF: 4 (DME) SHOWER CHAIR See Rx Instructions .Route .MEDSUPPLY Qty: 1 RF: 0 (DME) ROLLATOR See Rx Instructions .Route .MEDSUPPLY Qty: 1 RF: 0 (DME) DIABETIC SHOES See Rx Instructions .Route .MEDSUPPLY Qty: 2 RF: 0 (DME) BLOOD PRESSURE MONITOR See Rx Instructions .Route .MEDSUPPLY Qty: 1 RF: 0 Referrals: Adrian Abarca MD [Physician] - 2 days
[2021-05-12] MEDS: Morphine Sulfate 2 MG/ML CARTRIDGE IVPUSH (11:52)
[2021-05-12 11:54] LABS: MANUAL DIFF FLAG NO
[2021-05-12] MEDS: 0.9 % Sodium Chloride 500 ML 999 ML IV (11:54)
[2021-05-12 11:57] LABS: Basophils Percent Auto 0.2 % (0-2); Eosinophils Absolute Auto 0.1 X10*3/uL (0.0-0.4); Eosinophils Percent Auto 2.6 % (0-4); Hematocrit 32.4 % (42-52); Hemoglobin 10.4 g/dl (14.0-18.0); Imm Gran Abs Auto 0.03 X10*3/uL (0.00-0.03); Imm Gran Pct Auto 0.6 % (0.0-0.4); Lymphocytes Absolute Auto 1.5 X10*3/uL (1.2-4.9); Lymphocytes Percent Auto 27.1 % (20-40); Mean Corpuscular HGB Conc 32.1 g/dl (31.0-36.0); Mean Corpuscular Hemoglobin 28.5 pg (27.0-33.0); Mean Corpuscular Volume 88.8 fL (80-98); Monocytes Absolute Auto 0.6 X10*3/uL (0.1-1.2); Monocytes Percent Auto 11.3 % (2-11); Neutrophils Absolute Auto 3.1 X10*3/uL (2.0-8.3); Neutrophils Percent Auto 58.2 % (45-73); Platelet Count 319 X10*3/uL (160-400); Red Blood Count 3.65 X10*6/uL (4.60-5.80); Red Cell Distribution Width 14.8 % (11.0-16.0); White Blood Count 5.4 X10*3/uL (4.8-10.8)
[2021-05-12 12:07] LABS: Prothrombin Time 10.8 SEC (9.9-13.0)
[2021-05-12] MEDS: hydrOXYzine HCL 25 MG TABLET PO (12:07)
[2021-05-12 12:11] LABS: COVID-19 Test Negative (Negative); IDNOW Serial# 9DD0AD1C
[2021-05-12 12:31] LABS: Alanine Aminotransferase 18 U/L (0-40); Albumin Level 4.4 g/dL (3.5-5.0); Alkaline Phosphatase 77 U/L (39-117); Anion Gap 13 (12-20); Aspartate Amino Transferase 16 U/L (5-37); Bilirubin Direct < 0.2 mg/dL (0.0-0.5); Bilirubin Total 0.3 mg/dL (0.0-1.0); Blood Urea Nitrogen 20 mg/dL (9-16); Calcium 8.8 mg/dL (8.4-10.2); Carbon Dioxide 25 mmol/L (22-29); Chloride 102 mmol/L (96-108); Creatinine Clr Calc Pharmacy 62.2; Estimated Glomerular Filt Rate 49; Glucose Random 139 mg/dL (60-115); Potassium 4.3 mmol/L (3.3-5.1); Sodium 136 mmol/L (135-145); Total Protein 7.4 g/dL (6.5-8.0)
[2021-05-12 12:34] LABS: Troponin-I High Sensitivity 4.6 ng/L (<3.5-35.0)
[2021-05-12 12:35] LABS: B Type Natriuretic Peptide 29 pg/mL (<100)
[2021-05-12 12:37] VITALS: BP 167/88; PULSE 59; RESP 16; TEMP 36.8; O2SAT 100
[2021-05-12 12:40] VITALS: BP 158/75; PULSE 59
[2021-05-12 12:41] VITALS: BP 145/88; PULSE 59
--- NOTE | 2021-05-12 13:15 | PC.NURSE ---
PT S/F IN BED, RR EVEN UNLABORED, SKIN WPD, AOX3. PT REPEATEDLY CALLING STAFF INTO ROOM DEMANDING CARE, WHEN ASKED BY THIS RN WHAT CAN BE DONE FOR HIM HE MAKES NO REQUESTS, SIMPLY STATES HE HAS BEEN HERE ALL DAY AND NO ONE IS DOING ANYTHING, IS THIS EVEN A HOSPITAL . PT REPORTS NO RELIEF FROM IV PAIN MEDS, PROVIDER NOTIFIED OF PATIENT PAIN STATUS. PT AWAITING REPEAT LABS.
--- NOTE | 2021-05-12 13:42 | PC.NURSE ---
THIS RN WENT TO MEDICATE PATIENT PER EMAR, PT REFUSED TYLNEOL, STS HE WILL NOT TAKE IT, THAT HE IS BEING TREATED LIKE TRASH D/T PAIN MEDICATION ORDER. PT DEMANDED IV BE REMOVED OR I WILL REMOVE IT MYSELF . PT ADVISED THIS RN TELL THE DR I AM LEAVING AND THAT SHE NEEDS TO TALK TO ME NOW OR SHE CAN JUST MAIL ME MY PAPERWORK. PROVIDER NOTIFIED OF PATIENT WISHES AND STATEMENTS. PT AMBULATED TO BR W/ EVEN STEADY GAIT USING CANE.
--- NOTE | 2021-05-12 13:47 | PC.NURSE ---
THIS RN PRESENT WHEN DAVID MONTESINOS EXPLAINED AMA PAPERWORK, DISCUSSED RISKS INVOLVED WITH LEAVING AT THIS TIME, PT VERBALIZED UNDERSTANDING, THEM AMBULATED OUT OF ED WHILE THIS RN WAS PRINTING AMA PAPERWORK, PT REFUSED TO SIGN, AMBULATED OUT OF ED WITH EVEN STEADY GAIT.
== END 2021-05-12 13:51 | disposition left against medical advice (07) ==
PROVIDERS: Physician Assistant; Emergency Provider Emergency Medicine; PCP Internal Medicine
DX: R07.89 Other chest pain (principal); I10 Essential (primary) hypertension; E11.9 Type 2 diabetes mellitus without complications; J44.9 Chronic obstructive pulmonary disease, unspecified; Z86.711 Personal history of pulmonary embolism; Z86.718 Personal history of other venous thrombosis and embolism; Z79.01 Long term (current) use of anticoagulants; Z79.4 Long term (current) use of insulin; Z79.82 Long term (current) use of aspirin; Z79.899 Other long term (current) drug therapy; Z20.822 Contact with and (suspected) exposure to COVID-19
CPT/HCPCS: 36415; 71045; 80048; 80076; 83735; 83880; 84484; 85025; 85610; 85730; 87635; 93005; 96361; 96374; 99284; J2270

== ENCOUNTER → 2021-10-08 12:59 | Outpatient (BNVA) | payer OTHER, SELFPAY | PROVIDERS: PCP Internal Medicine; Visit Provider Anesthesiology | DX: M96.1 Postlaminectomy syndrome, not elsewhere classified (principal); G89.29 Other chronic pain | CPT/HCPCS: 99212 ==

== ENCOUNTER 2023-02-08 01:52 | Emergency (ER) | payer OTHER, SELFPAY ==
--- NOTE | 2023-02-08 | ECG_ITS ---
Test Reason : chest pain Blood Pressure : / mmHG Vent. Rate : 109 BPM Atrial Rate : 109 BPM P-R Int : 160 ms QRS Dur : 086 ms QT Int : 354 ms P-R-T Axes : 048 -44 072 degrees QTc Int : 476 ms Sinus tachycardia Left axis deviation Moderate voltage criteria for LVH, may be normal variant ( R in aVL , Giovanny product ) Nonspecific T wave abnormality Abnormal ECG When compared with ECG of 12-MAY-2021 10:51, Vent. rate has increased BY 46 BPM Non-specific change in ST segment in Lateral leads T wave inversion no longer evident in Inferior leads Referred By: Generic ED Physician Electronically Signed By:KEELEY CHAVEZ
--- NOTE | ~2023-02-08 | CT_ITS ---
EXAMINATION: CT CHEST, ABDOMEN AND PELVIS WITHOUT CONTRAST CLINICAL INFORMATION: Pleuritic chest pain, abdominal pain, pelvic pain COMPARISON: 03/18/2021 TECHNIQUE: Multidetector volumetric imaging was performed from the thoracic inlet through the pubic symphysis. Sagittal and coronal reformatted images were obtained on the technologist's workstation. Axial MIP volume rendering provided. This CT examination was performed using dose optimization techniques as appropriate, variously including the following: *Automated exposure control *Adjustment of mA and/or kV according to patient size (this includes techniques or standardized protocols for targeted exams where dose is matched to indication/reason for exam; i.e. extremities or head) *Use of iterative reconstruction technique DLP: 933 mGy-cm FINDINGS: CHEST: Lungs: Dependent layering debris/secretions noted in the right bronchus intermedius. No regions of consolidation bilaterally. Redemonstrated subpleural nodule in the superior left lower lobe measuring up to 6 mm, unchanged from prior. Minimal dependent atelectasis bilaterally. Mediastinum: Visualized thyroid gland is grossly unremarkable. There are subcentimeter mediastinal lymph nodes within the range of normal variation. Cardiac size is within normal limits; no pericardial effusion. Ascending aorta measures approximately 3.9 cm in diameter. Scattered calcifications along the aorta. Coronary Artery Calcification: Present. Pleura: There is no significant effusion. No pleural mass or thickening. Chest Wall/Axilla: Unremarkable. ABDOMEN/PELVIS: Liver, Gallbladder, Biliary Tree: The liver is normal in size, shape, and attenuation. Redemonstrated hypodensity in the left hepatic lobe measuring approximately 3.6 cm, previously characterized as a hemangioma. The gallbladder is unremarkable with no evidence of radiopaque gallstones, gallbladder wall thickening, or pericholecystic inflammatory changes. Pancreas: Unremarkable. Spleen: Unremarkable. Adrenal Glands: Unremarkable. Kidneys and Ureters: No hydronephrosis or obstructing calculus bilaterally. There are numerous scattered calcifications in the bilateral renal morena, at least some of which are favored to be vascular. Left renal cysts are noted; no follow-up recommended. Bladder: Mild mural prominence, similar to prior. Gastrointestinal Tract: No evidence of bowel obstruction or significant wall thickening. The appendix is unremarkable. No free fluid or free air is seen. Abdominal Wall: Fat-containing left inguinal hernia. Lymphovascular Structures: Lymph nodes: Normal. Vascular: There is atherosclerotic calcification along the aorta and iliac arteries. Pelvic Viscera: The prostate gland is enlarged, measuring 5.5 cm in transverse diameter. OSSEOUS STRUCTURES: Degenerative changes are noted in the spine. Status post L5-S1 fusion. CT/CT abdomen pelvis wo IV con IMPRESSION: 1. No acute findings identified in the chest, abdomen, or pelvis. 2. Dependent layering debris/secretions in the right bronchus intermedius. 3. Enlarged prostate gland. 4. Coronary artery calcifications. Correlation with cardiac risk factors is recommended.
[2023-02-08 02:03] VITALS: BP 152/102; BP 187/90; PULSE 114; PULSE 90; RESP 18; O2SAT 93; O2SAT 97; BMI 26.5
[2023-02-08 02:21] LABS: MANUAL DIFF FLAG NO
[2023-02-08 02:30] LABS: Basophils Percent Auto 0.3 % (0-2); Eosinophils Absolute Auto 0.1 X10*3/uL (0.0-0.4); Eosinophils Percent Auto 1.3 % (0-4); Hematocrit 33.1 % (42.0-52.0); Imm Gran Abs Auto 0.03 X10*3/uL (0.00-0.03); Imm Gran Pct Auto 0.4 % (0.0-0.4); Lymphocytes Absolute Auto 1.8 X10*3/uL (1.2-4.9); Lymphocytes Percent Auto 24.4 % (20-40); Mean Corpuscular HGB Conc 33.2 g/dl (31.0-36.0); Mean Corpuscular Hemoglobin 26.9 pg (27.0-33.0); Mean Corpuscular Volume 80.9 fL (80.0-98.0); Mean Platelet Volume 9.7 fL (9.4-12.4); Monocytes Absolute Auto 0.5 X10*3/uL (0.1-1.2); Monocytes Percent Auto 6.9 % (2-11); Neutrophils Percent Auto 66.7 % (45-73); Platelet Count 319 X10*3/uL (160-400); Red Blood Count 4.09 X10*6/uL (4.60-5.80); Red Cell Distribution Width 13.6 % (11.0-16.0); White Blood Count 7.5 X10*3/uL (4.8-10.8)
[2023-02-08 02:35] LABS: INTERNATIONAL NORM RATIO 0.8 (0.9-1.1); Prothrombin Time 9.3 SEC (10.0-13.1)
[2023-02-08 02:37] LABS: D Dimer High Sensitivity 294 NG/ML
[2023-02-08 02:49] LABS: Anion Gap 18 (12-20); Blood Urea Nitrogen 17 mg/dL (9-16); Calcium 8.3 mg/dL (8.4-10.2); Carbon Dioxide 20 mmol/L (22-29); Chloride 96 mmol/L (96-108); Creatinine Clr Calc Pharmacy 42.3; Estimated Glomerular Filt Rate 36; Glucose Random 669 mg/dL (60-115); Potassium 3.5 mmol/L (3.3-5.1); Sodium 130 mmol/L (135-145)
--- NOTE | 2023-02-08 02:52 | ED_ITS ---
HPI - Chest Pain General Chief Complaint: Chest Pain Stated Complaint: chest pain Time Seen by Provider: 02/08/23 02:52 Source: patient Limitations: no limitations History of Present Illness HPI narrative: 62-year-old male who presents emergency department for evaluation of chest pain and pelvic pain. The patient states that he developed chest pain approximately 4 days prior. He points to a specific spot on his left anterior chest when acts to localize the pain. He states the pain was initially intermittent but over the past 2 days the pain is been constant. Describes the pain is a pressure squeezing like pain which is worse with breathing. He states that he always feels short of breath but he does not feel more short of breath and his baseline, he has no dyspnea on exertion. He states he has also been experiencing bilateral lower pelvic and hip pain x1 month. He states this pain is a constant, dull ache which is gotten worse as well. The patient has a chronic cough which is unchanged. He states that he had a subjective fever and chills today. He denied rhinorrhea or sore throat. He denied nausea, vomiting or diarrhea. The patient has a history of coronary artery disease he states that he had a stent in 2008. He was worried that his chest pain was caused by either cancer or by heart disease. He states that he took 3 sublingual nitroglycerines prior to calling the ambulance and they did not changes pain he also took aspirin 81 mg tablets x3 prior to call an ambulance. Related Data Previous Rx's Medication Instructions Recorded BLOOD PRESSURE MONITOR #1 ea 03/12/21 DIABETIC SHOES #2 ea 03/12/21 ROLLATOR #1 ea 03/12/21 SHOWER CHAIR #1 03/12/21 nitroglycerin 0.4 mg sublingual 0.4 mg sublingual Q5M PRN chest 07/20/21 tablet pain #10 tabs enoxaparin 100 mg/mL subcutaneous 90 mg (0.9 mL) subcut Q12H #60 mL 09/26/21 syringe (Lovenox) lancets 28 gauge (FreeStyle ##100 01/14/22 Lancets) pen needle, diabetic 29 gauge x #100 ea 01/15/2210/26 (BD Ultra-Fine Original Pen Needle) quetiapine 200 mg tablet 200 mg PO BID #180 tabs 03/24/22 insulin glargine 100 unit/mL (3 50 unit (0.5 mL) subcut BEDTIME 04/20/22 mL) subcutaneous pen (Lantus #15 mL Solostar U-100 Insulin) apixaban 5 mg tablet (Eliquis) 5 mg PO BID #60 tabs 04/28/22 aspirin 81 mg tablet,delayed 81 mg PO DAILY 90 days #90 tabs 05/04/22 release blood sugar diagnostic (FreeStyle #120 ea 05/15/22 Lite Strips) ProAir HFA 90 mcg/actuation 2 puff PO Q6H PRN shortness of 05/20/22 aerosol inhaler (albuterol sulfate) breath or wheezing #8.5 ea lisinopril 10 mg tablet 10 mg PO DAILY #30 tabs 05/20/22 atorvastatin 40 mg tablet 40 mg PO BEDTIME #30 tabs 10/15/22 metoprolol succinate 100 mg 100 mg PO DAILY #90 tabs 10/15/22 tablet,extended release 24 hr insulin lispro 100 unit/mL 10 unit (0.1 mL) subcut TID 30 11/30/22 subcutaneous pen (Admelog SoloStar days #9 mL U-100 Insulin lispro) omeprazole 40 mg capsule,delayed 40 mg PO DAILY #30 caps 01/07/23 release morphine 15 mg immediate release 15 mg PO Q4-6H PRN pain #14 tabs 02/08/23 tablet Allergies Allergy/AdvReac Type Severity Reaction Status Date / Time nicotine AdvReac Unknown tachycardia, Verified 10/08/21 13:33 shaking Review of Systems Review of Systems: Yes all other systems are reviewed and are negative [facility] Past Medical History [facility] Narrative: Social history: The patient continues to smoke cigarettes. He denies alcohol and drug use. 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 Surgical History H/O colonoscopy History of ankle surgery History of arthroplasty of left knee History of esophagogastroduodenoscopy (EGD) History of heart artery stent History of inguinal hernia repair History of knee surgery History of lumbar surgery Hx of cataract surgery Family History Family History Father Cancer Mother Diabetes Social History Social History Housing: Apartment Alcohol intake: current Alcohol intake frequency: holidays/special occasions only Alcohol type: beer Patient Tobacco Use Status: Current everyday Tobacco user Tobacco use type: Cigarette Cigarettes Per Day: 3 Second Hand Smoke Exposure: Yes Advance Directives: Yes Advance Directives on File: Yes Advance Directives Date on File: 03/07/21 service: No Current occupational status: unemployed Physical Exam Vital Signs: Vital Signs: Last Vital Signs Temp 98.2 F 02/08/23 06:08 Pulse 92 02/08/23 06:08 Resp 17 02/08/23 06:08 BP 173/91 H 02/08/23 06:08 Pulse Ox 100 02/08/23 06:08 O2 Del Method Nasal Cannula 02/08/23 06:08 O2 Flow Rate 2 02/08/23 06:08 BMI result Body Mass Index 26.5 Const: General: cooperative and no acute distress Orientation/consciousness: oriented to person and oriented to place Limitations: no limitations HEENT: Head: Yes normal to inspection, Yes normocephalic and Yes atraumatic Ears: external ears normal General nose exam: Normal external nose present Face and sinus: Yes normal facial exam Mouth: Normal oral and palatal mucosa present Throat: Yes posterior oropharynx normal Eyes: General: appearance normal, both eyes and all related structures Pupils: Equal, round and reactive pupils present Neck: Neck: Yes normal visual inspection, Yes no lymphadenopathy, Yes trachea midline and Yes supple Chest: Chest palpation & inspection: normal inspection of the chest and normal palpation of entire chest wall Resp: Effort & Inspection: normal respiratory effort and able to speak in complete sentences Auscultation: clear to auscultation bilaterally Cardio: Rate: regular rate Rhythm: regular rhythm Heart sounds: S1 normal heart sound present, S2 normal heart sound present and no murmurs GI: Inspection: Yes normal to inspection Palpation (GI): Soft to palpation, nontender and no guarding Auscultation: normal bowel sounds : General: Yes no CVA tenderness Back/Spine/Pelvis: Back: no CVA tenderness Skin: General skin exam: no rashes or lesions noted Neuro: General: oriented to person and oriented to place Cranial nerves: Yes CN's II-XII intact bilaterally and Yes Equal, round and reactive pupils present Cognition (Neuro): normal cognition Motor exam (neuro): 5/5 motor strength present throughout Extrem: General: Yes normal to inspection Psych: Appearance: grossly normal Speech and movement: Normal speech and movement present Affect: normal affect Attitude: cooperative Thought process: Normal thought process present Thought content: Normal thought content present Medications Administered Discontinued Medications Generic Name Dose Route Start Last Admin Trade Name Freq PRN Reason Stop Dose Admin Lactated Ringer's 1,000 mls @ 999 mls/hr 02/08/23 03:15 02/08/23 05:37 Lr IV 02/08/23 04:15 Infused .Q1H1M SUSANNAH Infusion Lactated Ringer's 1,000 mls @ 999 mls/hr 02/08/23 03:30 02/08/23 05:37 Lr IV 02/08/23 04:30 Infused .Q1H1M SUSANNAH Infusion Insulin Human Regular 10 unit 02/08/23 03:14 02/08/23 03:44 Insulin Regular, Human 100 Unit/Ml 3 Ml Vial IVPUSH 02/08/23 03:15 10 unit ONCE ONE Administration Lisinopril 10 mg 02/08/23 05:41 02/08/23 05:54 Lisinopril 10 Mg Tablet PO 02/08/23 05:42 10 mg ONCE ONE Administration Protocol Metoprolol Succinate 100 mg 02/08/23 05:41 02/08/23 06:18 Metoprolol Succinate Er 100 Mg Tab.Er.24h PO 02/08/23 05:42 100 mg ONCE ONE Administration Protocol Morphine Sulfate 4 mg 02/08/23 03:14 02/08/23 03:44 Morphine Sulfate 4 Mg/Ml Cartridge IVPUSH 02/08/23 03:15 4 mg ONCE STA Administration Protocol Morphine Sulfate 4 mg 02/08/23 05:41 02/08/23 05:55 Morphine Sulfate 4 Mg/Ml Cartridge IVPUSH 02/08/23 05:42 4 mg ONCE STA Administration Protocol Medical Decision Making Medical Decision Making [facility] Narrative: 62-year-old male who presents emergency department for evaluation of 4 days of left anterior chest pain, pain was initially intermittent but then became constant over the past 2 days. The pain is a squeezing, pressure-like pain which is worse with breathing. Patient has baseline shortness of breath which is unchanged, no dyspnea on exertion. He has also complained of lower abdomen and pelvic pain x1 month which is gotten worse as well. Patient's vital signs did reveal hypertension with a blood pressure of 152/102 and tachycardia with a heart rate of 114. Patient had no significant chest wall tenderness is am was otherwise unremarkable. I did order laboratory evaluation to include CBC, BMP, LFTs, lipase, PT/INR, D-dimer, PTT, troponin. Patient's glucose was 699. Patient was ordered to get lactated Ringer's x2 L, regular insulin 10 units IV, morphine 4 mg IV. I will obtain a CT scan of the chest abdomen pelvis without IV contrast to try to evaluate his chest pain and abdominal pain. 0326: My interpretation of the patient's laboratory data is as follows: Anemia with an H&H of 11 and 33. Low sodium 130. Low bicarb 20. Elevated BUN and creatinine 17 and 1.89. Elevated glucose 699. Elevated D-dimer 294-the patient is on apixaban. High sensitive troponin I detectable at 7 but not elevated. 0645: The patient's pain did improve with the initial dose of morphine but he required a 2nd dose of morphine 4 mg IV. The repeat high sensitive troponin I was 10 which is detectable but still below detectable limits and did not change by more than 50% suggested the patient does not have myocardial injury is the cause of his pain. CT scan of the chest abdomen pelvis without IV contrast did not reveal a clear cause for his pain. The patient did have an incidental finding of an enlarged prostate but did not think this is caused his symptoms. The patient will be discharged home. He was given a prescription for morphine 15 mg tablets every 4-6 hours as needed for pain. Patient was advised to follow-up with his PCP, was given printed and verbal instructions. Differential Diagnosis Differential Diagnoses: The differential diagnosis associated with the presentation includes Differential diagnosis includes was not limited to angina, myocardial infarction, musculoskeletal pain, pneumonia, pancreatitis, metabolic abnormalities, pulmonary embolism, malignancy Lab Data [facility] Lab Attestation statement: I reviewed the patient's lab results. Please see [facility] 02/08/23 02:17 02/08/23 02:17 Labs: Lab Results 02/08/23 02/08/23 02/08/23 Range/Units 02:17 02:17 02:17 WBC 7.5 (4.8-10.8) X10*3/uL RBC 4.09 L (4.60-5.80) X10*6/uL Hgb 11.0 L (14.0-18.0) g/dl Hct 33.1 L (42.0-52.0) % MCV 80.9 (80.0-98.0) fL MCH 26.9 L (27.0-33.0) pg MCHC 33.2 (31.0-36.0) g/dl RDW 13.6 (11.0-16.0) % Plt Count 319 (160-400) X10*3/uL MPV 9.7 (9.4-12.4) fL Immature Gran % (Auto) 0.4 (0.0-0.4) % Neut % (Auto) 66.7 (45-73) % Lymph % (Auto) 24.4 (20-40) % [place] % (Auto) 6.9 (2-11) % Eos % (Auto) 1.3 (0-4) % Baso % (Auto) 0.3 (0-2) % Lymph # (Auto) 1.8 (1.2-4.9) X10*3/uL [place] # (Auto) 0.5 (0.1-1.2) X10*3/uL Eos # (Auto) 0.1 (0.0-0.4) X10*3/uL Baso # (Auto) 0.0 (0.0-0.2) X10*3/uL Abs Immat Gran (auto) 0.03 (0.00-0.03) X10*3/uL Absolute Neuts (auto) 5.0 (2.0-8.3) x10*3/uL Absolute Nucleated RBC 0.000 (0.0-0.012) X10*3/uL Nucleated RBC % (auto) 0.0 (0.0-0.2) /100WBC PT 9.3 L (10.0-13.1) SEC INR 0.8 L (0.9-1.1) APTT 28.9 (26.0-36.4) SEC D-Dimer High Sensitivty 294 NG/ML Sodium 130 L (135-145) mmol/L Potassium 3.5 (3.3-5.1) mmol/L Chloride 96 (96-108) mmol/L Carbon Dioxide 20 L (22-29) mmol/L Anion Gap 18 (12-20) BUN 17 H (9-16) mg/dL Creatinine 1.89 H (0.5-1.4) mg/dL Estim Creat Clear Calc 42.3 Estimated GFR 36 POC Glucose (60-115) mg/dL Random Glucose 669 H* (60-115) mg/dL Calcium 8.3 L (8.4-10.2) mg/dL Total Bilirubin 0.4 (0.0-1.0) mg/dL Direct Bilirubin 0.1 (0.0-0.5) mg/dL AST 7 (5-37) U/L ALT 10 (0-40) U/L Alkaline Phosphatase 85 (39-117) U/L Troponin I High Sens (<3.5-35.0) ng/L Total Protein 6.4 L (6.5-8.0) g/dL Albumin 4.0 (3.5-5.0) g/dL Lipase 42 (8-78) U/L 02/08/23 02/08/23 02/08/23 Range/Units 02:17 05:23 05:30 WBC (4.8-10.8) X10*3/uL RBC (4.60-5.80) X10*6/uL Hgb (14.0-18.0) g/dl Hct (42.0-52.0) % MCV (80.0-98.0) fL MCH (27.0-33.0) pg MCHC (31.0-36.0) g/dl RDW (11.0-16.0) % Plt Count (160-400) X10*3/uL MPV (9.4-12.4) fL Immature Gran % (Auto) (0.0-0.4) % Neut % (Auto) (45-73) % Lymph % (Auto) (20-40) % [place] % (Auto) (2-11) % Eos % (Auto) (0-4) % Baso % (Auto) (0-2) % Lymph # (Auto) (1.2-4.9) X10*3/uL [place] # (Auto) (0.1-1.2) X10*3/uL Eos # (Auto) (0.0-0.4) X10*3/uL Baso # (Auto) (0.0-0.2) X10*3/uL Abs Immat Gran (auto) (0.00-0.03) X10*3/uL Absolute Neuts (auto) (2.0-8.3) x10*3/uL Absolute Nucleated RBC (0.0-0.012) X10*3/uL Nucleated RBC % (auto) (0.0-0.2) /100WBC PT (10.0-13.1) SEC INR (0.9-1.1) APTT (26.0-36.4) SEC D-Dimer High Sensitivty NG/ML Sodium (135-145) mmol/L Potassium (3.3-5.1) mmol/L Chloride (96-108) mmol/L Carbon Dioxide (22-29) mmol/L Anion Gap (12-20) BUN (9-16) mg/dL Creatinine (0.5-1.4) mg/dL Estim Creat Clear Calc Estimated GFR POC Glucose 130 H (60-115) mg/dL Random Glucose (60-115) mg/dL Calcium (8.4-10.2) mg/dL Total Bilirubin (0.0-1.0) mg/dL Direct Bilirubin (0.0-0.5) mg/dL AST (5-37) U/L ALT (0-40) U/L Alkaline Phosphatase (39-117) U/L Troponin I High Sens 7.0 10.0 (<3.5-35.0) ng/L Total Protein (6.5-8.0) g/dL Albumin (3.5-5.0) g/dL Lipase (8-78) U/L Independent Interpretation I performed an independent interpretation of an: EKG Interpretation: My independent interpretation of patient's 12 EKG done at 0201: Cysts sinus tachycardia with a rate of 109, normal TX interval QRS duration and QTC interval. No ST segment elevation, no ST segment depression, no PACs, no PVCs Radiology Impression Discussion of test interpretation with radiology: I have reviewed the radiologist's reading. Radiologist Impression: CT chest wo IV con IMPRESSION: 1. No acute findings identified in the chest, abdomen, or pelvis. 2. Dependent layering debris/secretions in the right bronchus intermedius. 3. Enlarged prostate gland. 4. Coronary artery calcifications. Correlation with cardiac risk factors is recommended. Dictated By:Jaime Rodriguez MD Discharge Plan Discharge Clinical Impression: Chest pain, Acute pelvic pain, Acute hyperglycemia, Volume depletion Patient Disposition: Home, Self-Care Instructions: Chest Pain (ED) Additional Instructions: Your blood work did reveal an elevated glucose of 699. Your high sensitive troponin I was detectable but not elevated and your repeat 3 hour high sensitive troponin I was also detectable but not elevated. This is reassuring and suggests that your chest pain was not caused by heart damage. The CT scan of your chest abdomen and pelvis did not reveal any clear cause for your chest pain or pelvic pain. You do have an enlarged prostate but I do not think this is cause of your symptoms, you should follow-up with her doctor to discuss this finding to see if you need any further testing of your prostate. Take Tylenol (acetaminophen) 2 pills every 4-6 hours as needed for pain. For pain not relieved by Tylenol take morphine 15 mg pills, 1 pill every 4 hour s as needed for pain. This medication will make you sleepy, do not drive or work while taking this medication. Morphine is a narcotic medication and can be addicting. If you are concerned about addiction you can ask the pharmacist for less pills or do not get this prescription filled. Follow-up with your doctor in 2 days. Please return to the emergency department if your symptoms get worse or if you develop any symptoms that are concerning to you. Prescriptions: New morphine 15 mg tablet 15 mg PO Q4-6H PRN (Reason: pain) Qty: 14 0RF Rx Instructions: Patient may request partial fill; Partial Fill upon patient request. No Action enoxaparin [Lovenox] 100 mg/mL Syringe 90 mg SUBCUT Q12H Qty: 60 4RF (DME) lancets [FreeStyle Lancets] 28 gauge misc See Rx Instructions .ROUTE .COMPLEX Qty: 100 12RF Dose Instruction: USE TO TEST 4 TIMES DAILY Rx Instructions: USE TO TEST 4 TIMES DAILY (DME) pen needle, diabetic [BD Ultra-Fine Orig Pen Needle] 29 gauge x 1/2 needle See Rx Instructions .Route Qty: 100 6RF Rx Instructions: Test 3 Times Daily quetiapine 200 mg tablet 200 mg PO BID Qty: 180 0RF insulin glargine [Lantus Solostar U-100 Insulin] 100 unit/mL (3 mL) insulin pen 50 unit subcut BEDTIME Qty: 15 3RF Rx Instructions: or as directed Eliquis 5 mg tablet 5 mg PO BID Qty: 60 0RF aspirin 81 mg tablet,delayed release (DR/EC) 81 mg PO DAILY 90 Days Qty: 90 3RF (DME) FreeStyle Lite Strips Strip See Rx Instructions .ROUTE .MEDSUPPLY Qty: 120 0RF Rx Instructions: TEST 4 TIMES DAILY albuterol sulfate [ProAir HFA] 90 mcg/actuation HFA aerosol inhaler 2 puff PO Q6H PRN (Reason: shortness of breath or wheezing) Qty: 8.5 1RF lisinopril 10 mg tablet 10 mg PO DAILY Qty: 30 0RF metoprolol succinate 100 mg tablet extended release 24 hr 100 mg PO DAILY Qty: 90 1RF atorvastatin 40 mg tablet 40 mg PO BEDTIME Qty: 30 0RF insulin lispro [Admelog SoloStar U-100 Insulin] 100 unit/mL insulin pen 10 unit subcut TID 30 Days Qty: 9 0RF omeprazole 40 mg capsule,delayed release(DR/EC) 40 mg PO DAILY Qty: 30 1RF (DME) SHOWER CHAIR See Rx Instructions .Route .MEDSUPPLY Qty: 1 0RF Rx Instructions: As directed (DME) ROLLATOR See Rx Instructions .Route .MEDSUPPLY Qty: 1 0RF Rx Instructions: As directed (DME) DIABETIC SHOES See Rx Instructions .Route .MEDSUPPLY Qty: 2 0RF Rx Instructions: As directed (DME) BLOOD PRESSURE MONITOR See Rx Instructions .Route .MEDSUPPLY Qty: 1 0RF Rx Instructions: As directed nitroglycerin 0.4 mg tablet, sublingual 0.4 mg sublingual Q5M PRN (Reason: chest pain) Qty: 10 0RF Rx Instructions: do not exceed 3 doses per episode
[2023-02-08] MEDS: Lactated Ringers 1,000 ML 999 ML IV ×2 (03:33)
[2023-02-08 03:34] LABS: Partial Thromboplastin Time 28.9 SEC (26.0-36.4)
[2023-02-08 03:40] LABS: Alanine Aminotransferase 10 U/L (0-40); Alkaline Phosphatase 85 U/L (39-117); Aspartate Amino Transferase 7 U/L (5-37); Bilirubin Direct 0.1 mg/dL (0.0-0.5); Bilirubin Total 0.4 mg/dL (0.0-1.0); Lipase 42 U/L (8-78); Total Protein 6.4 g/dL (6.5-8.0)
[2023-02-08] MEDS: Morphine Sulfate 4 MG/ML CARTRIDGE IVPUSH ×2 (03:44→05:55)
[2023-02-08] MEDS: Insulin Regular, Human 100 UNIT/ML 3 ML VIAL 10 UNIT IVPUSH (03:44)
[2023-02-08 04:20] VITALS: BP 221/110; PULSE 94; RESP 22; O2SAT 99
[2023-02-08 05:15] VITALS: BP 188/99; PULSE 87; RESP 20; O2SAT 99
[2023-02-08 05:37] LABS: Glucose, Whole Blood 130 mg/dL (60-115)
[2023-02-08] MEDS: lisinopriL 10 MG TABLET PO (05:54)
[2023-02-08 06:08] VITALS: BP 173/91; PULSE 92; RESP 17; TEMP 36.8; O2SAT 100
[2023-02-08] MEDS: Metoprolol Succinate ER 100 MG TAB.ER.24H PO (06:18)
--- NOTE | 2023-02-08 06:43 | PC.NURSE ---
Pt. calm and cooperative, alert and oriented. Pt's blood sugar initially elevated at 699, however, down to 130 after 2L of LR and 10 units IV push insulin. Pt. BP has remained high and pt. doesn't recall if he took his BP meds yesterday, though thinks he probably didn't. Pt. given lisinopril and metoprolol. Pt. medicated for pain with morphine 4mg. Pt. resting quietly in bed, pending CT scan results.
[2023-02-08 07:22] VITALS: BP 164/94; PULSE 82; RESP 18; O2SAT 96
== END 2023-02-08 08:01 | disposition home or self-care (01) ==
PROVIDERS: Emergency Provider Emergency Medicine Emergency Medical Services; PCP Internal Medicine
DX: R07.9 Chest pain, unspecified (principal); E11.65 Type 2 diabetes mellitus with hyperglycemia; E86.9 Volume depletion, unspecified; R10.2 Pelvic and perineal pain; I10 Essential (primary) hypertension; E78.00 Pure hypercholesterolemia, unspecified; F17.210 Nicotine dependence, cigarettes, uncomplicated; Z86.718 Personal history of other venous thrombosis and embolism; Z86.711 Personal history of pulmonary embolism; Z79.4 Long term (current) use of insulin; Z79.82 Long term (current) use of aspirin; Z79.01 Long term (current) use of anticoagulants; Z79.02 Long term (current) use of antithrombotics/antiplatelets; Z79.899 Other long term (current) drug therapy
CPT/HCPCS: 36415; 71250; 74176; 80048; 80076; 82947; 83690; 84484; 85025; 85379; 85610; 85730; 93005; 96361; 96374; 96375; 96376; 99284; J2270

== ENCOUNTER 2023-02-08 09:53 | Emergency (ER) | payer OTHER, SELFPAY ==
--- NOTE | 2023-02-08 09:55 | ECG_ITS ---
Test Reason : CP Blood Pressure : / mmHG Vent. Rate : 091 BPM Atrial Rate : 091 BPM P-R Int : 160 ms QRS Dur : 084 ms QT Int : 372 ms P-R-T Axes : 029 -43 069 degrees QTc Int : 457 ms Normal sinus rhythm Left axis deviation Minimal voltage criteria for LVH, may be normal variant ( R in aVL ) Nonspecific T wave abnormality Abnormal ECG When compared with ECG of 08-FEB-2023 02:01, No significant change was found Referred By: Generic ED Physician Electronically Signed By:KEELEY CHAVEZ
[2023-02-08 09:59] VITALS: BP 136/74; PULSE 91; O2SAT 99
[2023-02-08 10:03] VITALS: BP 142/96; PULSE 90; RESP 18; TEMP 37; O2SAT 98; BMI 25.1
[2023-02-08 10:30] LABS: MANUAL DIFF FLAG NO
[2023-02-08 10:32] LABS: Basophils Percent Auto 0.2 % (0-2); Eosinophils Absolute Auto 0.2 X10*3/uL (0.0-0.4); Eosinophils Percent Auto 1.8 % (0-4); Hematocrit 32.9 % (42.0-52.0); Imm Gran Abs Auto 0.04 X10*3/uL (0.00-0.03); Imm Gran Pct Auto 0.4 % (0.0-0.4); Lymphocytes Absolute Auto 2.1 X10*3/uL (1.2-4.9); Lymphocytes Percent Auto 23.1 % (20-40); Mean Corpuscular HGB Conc 33.4 g/dl (31.0-36.0); Mean Corpuscular Hemoglobin 27.2 pg (27.0-33.0); Mean Corpuscular Volume 81.2 fL (80.0-98.0); Mean Platelet Volume 9.6 fL (9.4-12.4); Monocytes Absolute Auto 0.7 X10*3/uL (0.1-1.2); Monocytes Percent Auto 7.7 % (2-11); Neutrophils Percent Auto 66.8 % (45-73); Platelet Count 347 X10*3/uL (160-400); Red Blood Count 4.05 X10*6/uL (4.60-5.80); Red Cell Distribution Width 13.7 % (11.0-16.0)
[2023-02-08 10:55] LABS: Alanine Aminotransferase 11 U/L (0-40); Albumin Level 4.3 g/dL (3.5-5.0); Alkaline Phosphatase 86 U/L (39-117); Anion Gap 14 (12-20); Aspartate Amino Transferase 10 U/L (5-37); Bilirubin Total 0.5 mg/dL (0.0-1.0); Blood Urea Nitrogen 15 mg/dL (9-16); Calcium 9.1 mg/dL (8.4-10.2); Carbon Dioxide 28 mmol/L (22-29); Chloride 99 mmol/L (96-108); Creatinine Clr Calc Pharmacy 52.3; Estimated Glomerular Filt Rate 47; Glucose Random 376 mg/dL (60-115); Sodium 137 mmol/L (135-145); Total Protein 6.7 g/dL (6.5-8.0)
[2023-02-08 10:59] LABS: Troponin-I High Sensitivity 7.2 ng/L (<3.5-35.0)
[2023-02-08 11:19] VITALS: BP 181/83; PULSE 80; RESP 19; TEMP 36.7
--- NOTE | 2023-02-08 13:14 | PC.NURSE ---
pt refusing vs at5 this time. skin pwd, in nad. has not picked up pain rx from [facility] yet. awaiting dispo.
--- NOTE | 2023-02-08 13:33 | ED.CHESTPAIN ---
HPI - Chest Pain General Chief Complaint: Chest Pain Stated Complaint: CP,SOB,SEEN HERE RECENTLY PER EMS Time Seen by Provider: 02/08/23 11:57 Source: patient Mode of arrival: ambulatory Limitations: no limitations History of Present Illness HPI narrative: 62-year-old male return to the emergency department for re-evaluation of chest pain, back pain, pelvic pain. Patient was seen earlier today had workup for chest pain and CT of the abdomen and pelvis for the back pain patient had unremarkable workup and was discharged home patient return because he is still having the pain. Repeat EKG and troponin is still unremarkable. Related Data Previous Rx's Medication Instructions Recorded BLOOD PRESSURE MONITOR #1 ea 03/12/21 DIABETIC SHOES #2 ea 03/12/21 ROLLATOR #1 ea 03/12/21 SHOWER CHAIR #1 ea 03/12/21 nitroglycerin 0.4 mg sublingual 0.4 mg sublingual Q5M PRN chest 07/20/21 tablet pain #10 tabs enoxaparin 100 mg/mL subcutaneous 90 mg (0.9 mL) subcut Q12H #60 mL 09/26/21 syringe (Lovenox) lancets 28 gauge (FreeStyle ##100 01/14/22 Lancets) pen needle, diabetic 29 gauge x #100 ea 01/15/2210/26 (BD Ultra-Fine Original Pen Needle) quetiapine 200 mg tablet 200 mg PO BID #180 tabs 03/24/22 insulin glargine 100 unit/mL (3 50 unit (0.5 mL) subcut BEDTIME 04/20/22 mL) subcutaneous pen (Lantus #15 mL Solostar U-100 Insulin) apixaban 5 mg tablet (Eliquis) 5 mg PO BID #60 tabs 04/28/22 aspirin 81 mg tablet,delayed 81 mg PO DAILY 90 days #90 tabs 05/04/22 release blood sugar diagnostic (FreeStyle #120 ea 05/15/22 Lite Strips) ProAir HFA 90 mcg/actuation 2 puff PO Q6H PRN shortness of 05/20/22 aerosol inhaler (albuterol sulfate) breath or wheezing #8.5 ea lisinopril 10 mg tablet 10 mg PO DAILY #30 tabs 05/20/22 atorvastatin 40 mg tablet 40 mg PO BEDTIME #30 tabs 10/15/22 metoprolol succinate 100 mg 100 mg PO DAILY #90 tabs 10/15/22 tablet,extended release 24 hr insulin lispro 100 unit/mL 10 unit (0.1 mL) subcut TID 30 11/30/22 subcutaneous pen (Admelog SoloStar days #9 mL U-100 Insulin lispro) omeprazole 40 mg capsule,delayed 40 mg PO DAILY #30 caps 01/07/23 release morphine 15 mg immediate release 15 mg PO Q4-6H PRN pain #14 tabs 02/08/23 tablet Allergies Allergy/AdvReac Type Severity Reaction Status Date / Time nicotine AdvReac Unknown tachycardia, Verified 10/08/21 13:33 shaking Review of Systems Review of Systems: All other systems are reviewed and are negative Constitutional: Reports as per HPI and Reports no additional constitutional complaints Eyes: Reports as per HPI and Reports no additional eye complaints Reports system reviewed and no additional complaints, except as documented Cardiovascular: Reports as per HPI and Reports no additional cardiovascular complaints Respiratory: Reports as per HPI and Reports no additional respiratory complaints Gastrointestinal: Reports as per HPI and Reports no additional gastrointestinal complaints Genitourinary: Reports no additional female genitourinary complaints Musculoskeletal: Reports no additional musculoskeletal complaints Skin/Breast: Reports system reviewed and no additional complaints, except as docu Psychiatric: Reports no additional psychiatric complaints Endocrine: Reports no additional endocrine complaints Hematologic/Lymphatic: Reports no additional hematologic/lymphatic complaints Allergic/Immunologic: Reports no additional allergic/immunologic complaints Reports system reviewed and no additional complaints, except as documented and Reports Abnormal speech present [facility] Past Medical History Medical History Anxiety Benign essential hypertension CAD (coronary artery disease) Chest pain Deep vein thrombosis (DVT) of right lower extremity Depression Essential hypertension GERD (gastroesophageal reflux disease) Hx pulmonary embolism Hyperlipidemia LDL goal <100 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 COVID-19 virus [facility] current use of insulin Low back pain Lumbar degenerative disc disease Obesity (BMI 30-39.9) Onychomycosis Overweight (BMI 25.0-29.9) Pelvic pain in male Proteinuria Pure hypercholesterolemia PVD (peripheral vascular disease) Recurrent chest pain Sleep apnea Smoker 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 Surgical History H/O colonoscopy History of ankle surgery History of arthroplasty of left knee History of esophagogastroduodenoscopy (EGD) History of heart artery stent History of inguinal hernia repair History of knee surgery History of lumbar surgery Hx of cataract surgery Family History Family History Father Cancer Mother Diabetes Social History Social History Housing: Apartment Alcohol intake: current Alcohol intake frequency: holidays/special occasions only Alcohol type: beer Patient Tobacco Use Status: Current everyday Tobacco user Tobacco use type: Cigarette Cigarettes Per Day: 3 Second Hand Smoke Exposure: Yes Advance Directives: Yes Advance Directives on File: Yes Advance Directives Date on File: 03/07/21 service: No Current occupational status: unemployed Physical Exam Vital Signs: Vital Signs: Last Vital Signs Temp 98.0 F 02/08/23 11:19 Pulse 80 02/08/23 11:19 Resp 19 02/08/23 11:19 BP 181/83 H 02/08/23 11:19 Pulse Ox 98 02/08/23 10:03 O2 Del Method Room Air 02/08/23 13:13 BMI result Body Mass Index 25.1 Vital signs have been reviewed as appeared to be correct. Blood pressure elevated. Heart rate normal. Respiration rate normal. Temperature normal. Oxygen saturation normal. Appearance: Alert. Oriented X3. No acute distress. Head: Normal external exam. Normocephalic. Atraumatic. No Joyce signs noted. No raccoon eyes noted Eyes: PERRLA. EOMI. Conjunctiva and sclera normal. Eyelids normal. ENT: TM's Normal. Pharynx normal. Uvula midline. Moist mucous membranes. No trismus noted. No drooling noted. No muffled voice noted. Neck: Normal inspection. Neck supple. FROM. No adenopathy. Thyroid Normal. No meningeal signs. No neck mass noted. CVS: Normal heart rate and rhythm. Heart sound normal. No murmurs noted. Pulses normal throughout. Respiratory: No respiratory distress. Painless inspiration. Breath sounds normal. No wheezes/rales/rhonchi noted. Chest nontender. No accessory muscle usage noted or decreased air movement noted. Abdomen: Soft and nontender. Bowel sounds normal in all 4 quadrants. No distention noted. No organomegaly noted. No visible injury noted. Back: No CVA tenderness. Full range of motion noted. Skin: Skin warm and dry. Normal skin color. Normal skin turgor. No rashes/lesions/lacerations noted. Extremities: No lower extremity edema. Extremities exhibit normal range of motion. Extremities nontender. Neuro: Oriented X 3. Cranial nerve exam: II-XII are grossly intact No motor deficit. No sensory deficit. Reflexes normal. Medical Decision Making Medical Decision Making [facility] Narrative: Acute on chronic chest pain and back pain and pelvic pain, patient return to the emergency room for 2nd visit today for same symptoms, in his previous visit today patient had a thorough negative workup, seen neck patient need chronic pain control management, unfortunately patient walked out of the hospital before I finished my full evaluation. Differential Diagnosis Differential Diagnoses: The differential diagnosis associated with the presentation includes (ACS, pneumothorax, arthritis.) Lab Data [facility] Lab Attestation statement: I reviewed the patient's lab results. 02/08/23 10:19 02/08/23 10:19 Labs: Lab Results 02/08/23 02/08/23 02/08/23 Range/Units 10:19 10:19 10:19 WBC 9.0 (4.8-10.8) X10*3/uL RBC 4.05 L (4.60-5.80) X10*6/uL Hgb 11.0 L (14.0-18.0) g/dl Hct 32.9 L (42.0-52.0) % MCV 81.2 (80.0-98.0) fL MCH 27.2 (27.0-33.0) pg MCHC 33.4 (31.0-36.0) g/dl RDW 13.7 (11.0-16.0) % Plt Count 347 (160-400) X10*3/uL MPV 9.6 (9.4-12.4) fL Immature Gran % (Auto) 0.4 (0.0-0.4) % Neut % (Auto) 66.8 (45-73) % Lymph % (Auto) 23.1 (20-40) % [place] % (Auto) 7.7 (2-11) % Eos % (Auto) 1.8 (0-4) % Baso % (Auto) 0.2 (0-2) % Lymph # (Auto) 2.1 (1.2-4.9) X10*3/uL [place] # (Auto) 0.7 (0.1-1.2) X10*3/uL Eos # (Auto) 0.2 (0.0-0.4) X10*3/uL Baso # (Auto) 0.0 (0.0-0.2) X10*3/uL Abs Immat Gran (auto) 0.04 H (0.00-0.03) X10*3/uL Absolute Neuts (auto) 6.0 (2.0-8.3) x10*3/uL Absolute Nucleated RBC 0.000 (0.0-0.012) X10*3/uL Nucleated RBC % (auto) 0.0 (0.0-0.2) /100WBC Sodium 137 (135-145) mmol/L Potassium 4.0 (3.3-5.1) mmol/L Chloride 99 (96-108) mmol/L Carbon Dioxide 28 (22-29) mmol/L Anion Gap 14 (12-20) BUN 15 (9-16) mg/dL Creatinine 1.53 H (0.5-1.4) mg/dL Estim Creat Clear Calc 52.3 Estimated GFR 47 Random Glucose 376 H* (60-115) mg/dL Calcium 9.1 D (8.4-10.2) mg/dL Total Bilirubin 0.5 (0.0-1.0) mg/dL AST 10 (5-37) U/L ALT 11 (0-40) U/L Alkaline Phosphatase 86 (39-117) U/L Troponin I High Sens 7.2 (<3.5-35.0) ng/L Total Protein 6.7 (6.5-8.0) g/dL Albumin 4.3 (3.5-5.0) g/dL Independent Interpretation I performed an independent interpretation of an: EKG (Normal sinus rhythm, left axis deviation, LVH, no ST-T changes.) and CT Scan (Chest/abdomen CT: Unremarkable exam for acute pathology.) Radiology Impression Discussion of test interpretation with radiology: I have reviewed the radiologist's reading. Discharge Plan Discharge Clinical Impression: Chest pain Patient Disposition: Elopement Prescriptions: No Action enoxaparin [Lovenox] 100 mg/mL Syringe 90 mg SUBCUT Q12H Qty: 60 4RF (DME) lancets [FreeStyle Lancets] 28 gauge misc See Rx Instructions .ROUTE .COMPLEX Qty: 100 12RF Dose Instruction: USE TO TEST 4 TIMES DAILY Rx Instructions: USE TO TEST 4 TIMES DAILY (DME) pen needle, diabetic [BD Ultra-Fine Orig Pen Needle] 29 gauge x 1/2 needle See Rx Instructions .Route Qty: 100 6RF Rx Instructions: Test 3 Times Daily quetiapine 200 mg tablet 200 mg PO BID Qty: 180 0RF insulin glargine [Lantus Solostar U-100 Insulin] 100 unit/mL (3 mL) insulin pen 50 unit subcut BEDTIME Qty: 15 3RF Rx Instructions: or as directed Eliquis 5 mg tablet 5 mg PO BID Qty: 60 0RF aspirin 81 mg tablet,delayed release (DR/EC) 81 mg PO DAILY 90 Days Qty: 90 3RF (DME) FreeStyle Lite Strips Strip See Rx Instructions .ROUTE .MEDSUPPLY Qty: 120 0RF Rx Instructions: TEST 4 TIMES DAILY albuterol sulfate [ProAir HFA] 90 mcg/actuation HFA aerosol inhaler 2 puff PO Q6H PRN (Reason: shortness of breath or wheezing) Qty: 8.5 1RF lisinopril 10 mg tablet 10 mg PO DAILY Qty: 30 0RF metoprolol succinate 100 mg tablet extended release 24 hr 100 mg PO DAILY Qty: 90 1RF atorvastatin 40 mg tablet 40 mg PO BEDTIME Qty: 30 0RF insulin lispro [Admelog SoloStar U-100 Insulin] 100 unit/mL insulin pen 10 unit subcut TID 30 Days Qty: 9 0RF omeprazole 40 mg capsule,delayed release(DR/EC) 40 mg PO DAILY Qty: 30 1RF morphine 15 mg tablet 15 mg PO Q4-6H PRN (Reason: pain) Qty: 14 0RF Rx Instructions: Patient may request partial fill; Partial Fill upon patient request. (DME) SHOWER CHAIR See Rx Instructions .Route .MEDSUPPLY Qty: 1 0RF Rx Instructions: As directed (DME) ROLLATOR See Rx Instructions .Route .MEDSUPPLY Qty: 1 0RF Rx Instructions: As directed (DME) DIABETIC SHOES See Rx Instructions .Route .MEDSUPPLY Qty: 2 0RF Rx Instructions: As directed (DME) BLOOD PRESSURE MONITOR See Rx Instructions .Route .MEDSUPPLY Qty: 1 0RF Rx Instructions: As directed nitroglycerin 0.4 mg tablet, sublingual 0.4 mg sublingual Q5M PRN (Reason: chest pain) Qty: 10 0RF Rx Instructions: do not exceed 3 doses per episode Discharge Date/Time: 02/08/23 13:43
== END 2023-02-08 13:43 | disposition left against medical advice (07) ==
PROVIDERS: Emergency Provider Emergency Medicine; PCP Internal Medicine
DX: R07.9 Chest pain, unspecified (principal); E11.9 Type 2 diabetes mellitus without complications; I10 Essential (primary) hypertension; E78.00 Pure hypercholesterolemia, unspecified; F17.210 Nicotine dependence, cigarettes, uncomplicated; Z79.899 Other long term (current) drug therapy
CPT/HCPCS: 36415; 80053; 84484; 85025; 93005; 99283; 99284

== ENCOUNTER 2023-03-18 20:20 | Emergency (ER) | payer OTHER, SELFPAY ==
--- NOTE | ~2023-03-18 | CT_ITS ---
EXAMINATION: CT HEAD WITHOUT CONTRAST CLINICAL INFORMATION: Headache and right vision loss. COMPARISON: 03/13/2021 TECHNIQUE: Contiguous axial imaging was performed from the skull base to vertex without intravenous administration of contrast. This CT examination was performed using dose optimization techniques as appropriate, variously including the following: *Automated exposure control *Adjustment of mA and/or kV according to patient size (this includes techniques or standardized protocols for targeted exams where dose is matched to indication/reason for exam; i.e. extremities or head) *Use of iterative reconstruction technique DLP: 686 mGy-cm FINDINGS: There is no evidence of acute intracranial hemorrhage or territorial infarction. No abnormal mass effect or midline shift is seen. Rondon to white matter differentiation is well preserved. No extra-axial fluid collections are identified. No hydrocephalus. No significant volume loss. Patchy periventricular and deep white matter hypoattenuation is consistent with moderate small vessel ischemic changes. New but chronic slitlike lacune in the left thalamus. No acute osseous or soft tissue abnormality. The mastoid air cells and visualized portions of the paranasal sinuses are well aerated. CT/CT head/brain wo IV con IMPRESSION: No acute intracranial pathology.
[2023-03-18 20:29] VITALS: BP 144/86; PULSE 118; O2SAT 98
[2023-03-18 20:49] VITALS: BP 184/99; PULSE 108; RESP 18; TEMP 36.6; O2SAT 97; BMI 31.7
[2023-03-18 22:13] VITALS: BP 166/98; PULSE 95; RESP 15; O2SAT 95
--- NOTE | 2023-03-18 23:20 | ECG_ITS ---
Test Reason : WEAKNESS Blood Pressure : / mmHG Vent. Rate : 089 BPM Atrial Rate : 089 BPM P-R Int : 166 ms QRS Dur : 086 ms QT Int : 370 ms P-R-T Axes : 050 -55 -67 degrees QTc Int : 450 ms Normal sinus rhythm Left anterior fascicular block T wave abnormality, consider inferior ischemia Abnormal ECG When compared with ECG of 08-FEB-2023 09:56, T wave inversion now evident in Inferior leads Referred By: Emma Moreno Electronically Signed By:KEELEY CHAVEZ
--- NOTE | 2023-03-18 23:31 | ED_ITS ---
HPI - Eye Problem General Chief complaint: Eye Problems Stated complaint: vision change in r eye Time Seen by Provider: 03/18/23 23:07 Source: patient Mode of arrival: ambulatory Limitations: no limitations History of Present Illness HPI Narrative: 62-year-old male came in for evaluation of lost vision in the right eye since yesterday. Patient woke up from sleep last night 01:00 painless loose of vision in the right eye, patient also has been complaining of pain in a right forehead area radiating to right side occipital area. Patient did not seek immediate medical attention thought that he will get better, loss of vision still persist. Related Data Previous Rx's Medication Instructions Recorded BLOOD PRESSURE MONITOR #1 ea 03/12/21 DIABETIC SHOES #2 ea 03/12/21 ROLLATOR #1 ea 03/12/21 SHOWER CHAIR #1 ea 03/12/21 nitroglycerin 0.4 mg sublingual 0.4 mg sublingual Q5M PRN chest 07/20/21 tablet pain #10 tabs enoxaparin 100 mg/mL subcutaneous 90 mg (0.9 mL) subcut Q12H #60 mL 09/26/21 syringe (Lovenox) lancets 28 gauge (FreeStyle ##100 01/14/22 Lancets) pen needle, diabetic 29 gauge x #100 ea 01/15/2210/26 (BD Ultra-Fine Original Pen Needle) insulin glargine 100 unit/mL (3 50 unit (0.5 mL) subcut BEDTIME 04/20/22 mL) subcutaneous pen (Lantus #15 mL Solostar U-100 Insulin) apixaban 5 mg tablet (Eliquis) 5 mg PO BID #60 tabs 04/28/22 aspirin 81 mg tablet,delayed 81 mg PO DAILY 90 days #90 tabs 05/04/22 release blood sugar diagnostic (FreeStyle #120 ea 05/15/22 Lite Strips) ProAir HFA 90 mcg/actuation 2 puff PO Q6H PRN shortness of 05/20/22 aerosol inhaler (albuterol sulfate) breath or wheezing #8.5 ea lisinopril 10 mg tablet 10 mg PO DAILY #30 tabs 05/20/22 atorvastatin 40 mg tablet 40 mg PO BEDTIME #30 tabs 10/15/22 metoprolol succinate 100 mg 100 mg PO DAILY #90 tabs 10/15/22 tablet,extended release 24 hr insulin lispro 100 unit/mL 10 unit (0.1 mL) subcut TID 30 11/30/22 subcutaneous pen (Admelog SoloStar days #9 mL U-100 Insulin lispro) omeprazole 40 mg capsule,delayed 40 mg PO DAILY #30 caps 01/07/23 release morphine 15 mg immediate release 15 mg PO Q4-6H PRN pain #14 tabs 02/08/23 tablet quetiapine 200 mg tablet 200 mg PO BID #180 tabs 02/08/23 Allergies Allergy/AdvReac Type Severity Reaction Status Date / Time nicotine AdvReac Unknown tachycardia, Verified 10/08/21 13:33 shaking Review of Systems Review of Systems: All other systems are reviewed and are negative Constitutional: Reports as per HPI and Reports no additional constitutional complaints Eyes: Reports as per HPI and Reports no additional eye complaints Reports system reviewed and no additional complaints, except as documented Cardiovascular: Reports as per HPI and Reports no additional cardiovascular complaints Respiratory: Reports as per HPI and Reports no additional respiratory complaints Gastrointestinal: Reports as per HPI and Reports no additional gastrointestinal complaints Genitourinary: Reports no additional female genitourinary complaints Musculoskeletal: Reports no additional musculoskeletal complaints Skin/Breast: Reports system reviewed and no additional complaints, except as docu Psychiatric: Reports no additional psychiatric complaints Endocrine: Reports no additional endocrine complaints Hematologic/Lymphatic: Reports no additional hematologic/lymphatic complaints Allergic/Immunologic: Reports no additional allergic/immunologic complaints Reports system reviewed and no additional complaints, except as documented and Reports Abnormal speech present PENDING SALE TO [facility] Past Medical History Medical History Anxiety Benign essential hypertension CAD (coronary artery disease) Chest pain Deep vein thrombosis (DVT) of right lower extremity Depression Essential hypertension GERD (gastroesophageal reflux disease) Hx pulmonary embolism Hyperlipidemia LDL goal <100 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 COVID-19 virus halfway current use of insulin Low back pain Lumbar degenerative disc disease Obesity (BMI 30-39.9) Onychomycosis Overweight (BMI 25.0-29.9) Pelvic pain in male Proteinuria Pure hypercholesterolemia PVD (peripheral vascular disease) Recurrent chest pain Sleep apnea Smoker 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 Surgical History H/O colonoscopy History of ankle surgery History of arthroplasty of left knee History of esophagogastroduodenoscopy (EGD) History of heart artery stent History of inguinal hernia repair History of knee surgery History of lumbar surgery Hx of cataract surgery Family History Family History Father Cancer Mother Diabetes Social History Social History Housing: Apartment Alcohol intake: current Alcohol intake frequency: holidays/special occasions only Alcohol type: beer Patient Tobacco Use Status: Current everyday Tobacco user Tobacco use type: Cigarette Cigarettes Per Day: 3 Second Hand Smoke Exposure: Yes Advance Directives: Yes Advance Directives on File: Yes Advance Directives Date on File: 03/07/21 service: No Current occupational status: unemployed Physical Exam Vital Signs: Vital Signs: Last Vital Signs Temp 97.9 F 03/18/23 20:49 Pulse 95 03/18/23 22:13 Resp 15 03/18/23 22:13 BP 166/98 H 03/18/23 22:13 Pulse Ox 95 03/18/23 22:13 O2 Del Method Room Air 03/18/23 22:13 BMI result Body Mass Index 31.7 Vital signs have been reviewed as appeared to be correct. Blood pressure normal. Heart rate normal. Respiration rate normal. Temperature normal. Oxygen saturation normal. Appearance: Alert. Oriented X3. No acute distress. Head: Normal external exam. Normocephalic. Atraumatic. No Joyce signs noted. No raccoon eyes noted Eyes: PERRLA. EOMI. Conjunctiva and sclera normal. Eyelids normal. ENT: TM's Normal. Pharynx normal. Uvula midline. Moist mucous membranes. No trismus noted. No drooling noted. No muffled voice noted. Neck: Normal inspection. Neck supple. FROM. No adenopathy. Thyroid Normal. No meningeal signs. No neck mass noted. CVS: Normal heart rate and rhythm. Heart sound normal. No murmurs noted. Pulses normal throughout. Respiratory: No respiratory distress. Painless inspiration. Breath sounds normal. No wheezes/rales/rhonchi noted. Chest nontender. No accessory muscle usage noted or decreased air movement noted. Abdomen: Soft and nontender. Bowel sounds normal in all 4 quadrants. No distention noted. No organomegaly noted. No visible injury noted. Back: No CVA tenderness. Full range of motion noted. Skin: Skin warm and dry. Normal skin color. Normal skin turgor. No rashes/lesions/lacerations noted. Extremities: No lower extremity edema. Extremities exhibit normal range of motion. Extremities nontender. Neuro: Oriented X 3. Cranial nerve exam: II-XII are grossly intact No motor deficit. No sensory deficit. Reflexes normal. Course Course Course Narrative: 62-year-old male came in after painless loss of vision in the right eye 20 hours ago, eye exam is unremarkable, case discussed with Dr. Mejia who recommended to lower IOP in the right eye and he will follow up with him tomorrow in his office. Medications Administered Discontinued Medications Generic Name Dose Route Start Last Admin Trade Name Freq PRN Reason Stop Dose Admin Fluorescein Sodium 1 strip 03/19/23 00:17 03/19/23 00:21 Fluorescein Sodium Strip EYE-RIGHT 03/19/23 00:18 1 strip ONCE ONE Administration Oxycodone HCl 5 mg 03/18/23 23:51 03/19/23 00:13 Oxycodone Hcl Immed Release 5 Mg Tablet PO 03/18/23 23:52 5 mg ONCE ONE Administration Tetracaine HCl 1 drop 03/18/23 23:18 03/18/23 23:47 Tetracaine Hcl/Pf 0.5% Oph Shobha 4 Ml Drops EYE-BOTH 03/18/23 23:19 1 drop ONCE ONE Administration Medical Decision Making Differential Diagnosis Differential Diagnoses: The differential diagnosis associated with the presentation includes (Retinal artery occlusion, CVA (less likely), retinal venous occlusion, temporal arthritis, glaucoma, corneal abrasion, optic neuritis.) Admission/Observation Consideration of admission/observation: Escalation of care including admission/observation considered Consult Healthcare Provider Management of the patient was discussed with: Electro Mechanical Technologist (Dr. Mejia) Lab Data MDM Lab Attestation statement: I reviewed the patient's lab results. 03/18/23 23:40 03/18/23 23:40 Labs: Lab Results 03/18/23 03/18/23 03/18/23 Range/Units 23:40 23:40 23:40 WBC 9.2 (4.8-10.8) X10*3/uL RBC 4.47 L (4.60-5.80) X10*6/uL Hgb 12.1 L (14.0-18.0) g/dl Hct 35.9 L (42.0-52.0) % MCV 80.3 (80.0-98.0) fL MCH 27.1 (27.0-33.0) pg MCHC 33.7 (31.0-36.0) g/dl RDW 14.2 (11.0-16.0) % Plt Count 328 (160-400) X10*3/uL MPV 9.1 L (9.4-12.4) fL Immature Gran % (Auto) 0.5 H (0.0-0.4) % Neut % (Auto) 67.2 (45-73) % Lymph % (Auto) 22.3 (20-40) % Crenshaw % (Auto) 8.7 (2-11) % Eos % (Auto) 1.0 (0-4) % Baso % (Auto) 0.3 (0-2) % Lymph # (Auto) 2.1 (1.2-4.9) X10*3/uL Crenshaw # (Auto) 0.8 (0.1-1.2) X10*3/uL Eos # (Auto) 0.1 (0.0-0.4) X10*3/uL Baso # (Auto) 0.0 (0.0-0.2) X10*3/uL Abs Immat Gran (auto) 0.05 H (0.00-0.03) X10*3/uL Absolute Neuts (auto) 6.2 (2.0-8.3) x10*3/uL Absolute Nucleated RBC 0.000 (0.0-0.012) X10*3/uL Nucleated RBC % (auto) 0.0 (0.0-0.2) /100WBC ESR (0-15) MM/HR Sodium 137 (135-145) mmol/L Potassium 3.6 (3.3-5.1) mmol/L Chloride 99 (96-108) mmol/L Carbon Dioxide 28 (22-29) mmol/L Anion Gap 14 (12-20) BUN 13 (9-16) mg/dL Creatinine 1.46 H (0.5-1.4) mg/dL Estim Creat Clear Calc 61.1 Estimated GFR 49 Random Glucose 253 H (60-115) mg/dL Calcium 9.4 (8.4-10.2) mg/dL Total Bilirubin 0.6 (0.0-1.0) mg/dL Direct Bilirubin 0.1 (0.0-0.5) mg/dL AST 10 (5-37) U/L ALT 12 (0-40) U/L Alkaline Phosphatase 96 (39-117) U/L Troponin I High Sens 5.9 (<3.5-35.0) ng/L C-Reactive Protein 0.26 (< or = 0.50) mg/dL Total Protein 7.0 (6.5-8.0) g/dL Albumin 4.3 (3.5-5.0) g/dL Lipase 20 (8-78) U/L 05/25/23 Range/Units 23:40 WBC (4.8-10.8) X10*3/uL RBC (4.60-5.80) X10*6/uL Hgb (14.0-18.0) g/dl Hct (42.0-52.0) % MCV (80.0-98.0) fL MCH (27.0-33.0) pg MCHC (31.0-36.0) g/dl RDW (11.0-16.0) % Plt Count (160-400) X10*3/uL MPV (9.4-12.4) fL Immature Gran % (Auto) (0.0-0.4) % Neut % (Auto) (45-73) % Lymph % (Auto) (20-40) % Crenshaw % (Auto) (2-11) % Eos % (Auto) (0-4) % Baso % (Auto) (0-2) % Lymph # (Auto) (1.2-4.9) X10*3/uL Crenshaw # (Auto) (0.1-1.2) X10*3/uL Eos # (Auto) (0.0-0.4) X10*3/uL Baso # (Auto) (0.0-0.2) X10*3/uL Abs Immat Gran (auto) (0.00-0.03) X10*3/uL Absolute Neuts (auto) (2.0-8.3) x10*3/uL Absolute Nucleated RBC (0.0-0.012) X10*3/uL Nucleated RBC % (auto) (0.0-0.2) /100WBC ESR 21 H (0-15) MM/HR Sodium (135-145) mmol/L Potassium (3.3-5.1) mmol/L Chloride (96-108) mmol/L Carbon Dioxide (22-29) mmol/L Anion Gap (12-20) BUN (9-16) mg/dL Creatinine (0.5-1.4) mg/dL Estim Creat Clear Calc Estimated GFR Random Glucose (60-115) mg/dL Calcium (8.4-10.2) mg/dL Total Bilirubin (0.0-1.0) mg/dL Direct Bilirubin (0.0-0.5) mg/dL AST (5-37) U/L ALT (0-40) U/L Alkaline Phosphatase (39-117) U/L Troponin I High Sens (<3.5-35.0) ng/L C-Reactive Protein (< or = 0.50) mg/dL Total Protein (6.5-8.0) g/dL Albumin (3.5-5.0) g/dL Lipase (8-78) U/L Independent Interpretation I performed an independent interpretation of an: EKG (Normal sinus rhythm at 89 beats per minutes, left axis deviation, normal intervals, diffuse ST-T changes.) and CT Scan (Head: No acute intracranial pathology.) Radiology Impression Discussion of test interpretation with radiology: I have reviewed the radiologist's reading. 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 Mejia as instructed in the a.m.. Prescriptions: No Action enoxaparin [Lovenox] 100 mg/mL Syringe 90 mg SUBCUT Q12H Qty: 60 4RF (DME) lancets [FreeStyle Lancets] 28 gauge misc See Rx Instructions .ROUTE .COMPLEX Qty: 100 12RF Dose Instruction: USE TO TEST 4 TIMES DAILY Rx Instructions: USE TO TEST 4 TIMES DAILY (DME) pen needle, diabetic [BD Ultra-Fine Orig Pen Needle] 29 gauge x 1/2 needle See Rx Instructions .Route Qty: 100 6RF Rx Instructions: Test 3 Times Daily insulin glargine [Lantus Solostar U-100 Insulin] 100 unit/mL (3 mL) insulin pen 50 unit subcut BEDTIME Qty: 15 3RF Rx Instructions: or as directed Eliquis 5 mg tablet 5 mg PO BID Qty: 60 0RF aspirin 81 mg tablet,delayed release (DR/EC) 81 mg PO DAILY 90 Days Qty: 90 3RF (DME) FreeStyle Lite Strips Strip See Rx Instructions .ROUTE .MEDSUPPLY Qty: 120 0RF Rx Instructions: TEST 4 TIMES DAILY albuterol sulfate [ProAir HFA] 90 mcg/actuation HFA aerosol inhaler 2 puff PO Q6H PRN (Reason: shortness of breath or wheezing) Qty: 8.5 1RF lisinopril 10 mg tablet 10 mg PO DAILY Qty: 30 0RF metoprolol succinate 100 mg tablet extended release 24 hr 100 mg PO DAILY Qty: 90 1RF atorvastatin 40 mg tablet 40 mg PO BEDTIME Qty: 30 0RF insulin lispro [Admelog SoloStar U-100 Insulin] 100 unit/mL insulin pen 10 unit subcut TID 30 Days Qty: 9 0RF omeprazole 40 mg capsule,delayed release(DR/EC) 40 mg PO DAILY Qty: 30 1RF quetiapine 200 mg tablet 200 mg PO BID Qty: 180 0RF morphine 15 mg tablet 15 mg PO Q4-6H PRN (Reason: pain) Qty: 14 0RF Rx Instructions: Patient may request partial fill; Partial Fill upon patient request. (DME) SHOWER CHAIR See Rx Instructions .Route .MEDSUPPLY Qty: 1 0RF Rx Instructions: As directed (DME) ROLLATOR See Rx Instructions .Route .MEDSUPPLY Qty: 1 0RF Rx Instructions: As directed (DME) DIABETIC SHOES See Rx Instructions .Route .MEDSUPPLY Qty: 2 0RF Rx Instructions: As directed (DME) BLOOD PRESSURE MONITOR See Rx Instructions .Route .MEDSUPPLY Qty: 1 0RF Rx Instructions: As directed nitroglycerin 0.4 mg tablet, sublingual 0.4 mg sublingual Q5M PRN (Reason: chest pain) Qty: 10 0RF Rx Instructions: do not exceed 3 doses per episode Referrals: Joe Mejia [Physician] -
[2023-03-18 23:46] LABS: MANUAL DIFF FLAG NO
[2023-03-18] MEDS: Tetracaine HCl/PF 0.5% Oph Sol 4 ML DROPS 1 DROP EYE-BOTH (23:47)
[2023-03-18 23:49] LABS: Basophils Percent Auto 0.3 % (0-2); Eosinophils Absolute Auto 0.1 X10*3/uL (0.0-0.4); Hematocrit 35.9 % (42.0-52.0); Hemoglobin 12.1 g/dl (14.0-18.0); Imm Gran Abs Auto 0.05 X10*3/uL (0.00-0.03); Imm Gran Pct Auto 0.5 % (0.0-0.4); Lymphocytes Absolute Auto 2.1 X10*3/uL (1.2-4.9); Lymphocytes Percent Auto 22.3 % (20-40); Mean Corpuscular HGB Conc 33.7 g/dl (31.0-36.0); Mean Corpuscular Hemoglobin 27.1 pg (27.0-33.0); Mean Corpuscular Volume 80.3 fL (80.0-98.0); Mean Platelet Volume 9.1 fL (9.4-12.4); Monocytes Absolute Auto 0.8 X10*3/uL (0.1-1.2); Monocytes Percent Auto 8.7 % (2-11); Neutrophils Absolute Auto 6.2 x10*3/uL (2.0-8.3); Neutrophils Percent Auto 67.2 % (45-73); Platelet Count 328 X10*3/uL (160-400); Red Blood Count 4.47 X10*6/uL (4.60-5.80); Red Cell Distribution Width 14.2 % (11.0-16.0); White Blood Count 9.2 X10*3/uL (4.8-10.8)
[2023-03-19 00:09] LABS: Alanine Aminotransferase 12 U/L (0-40); Albumin Level 4.3 g/dL (3.5-5.0); Alkaline Phosphatase 96 U/L (39-117); Anion Gap 14 (12-20); Aspartate Amino Transferase 10 U/L (5-37); Bilirubin Direct 0.1 mg/dL (0.0-0.5); Bilirubin Total 0.6 mg/dL (0.0-1.0); Blood Urea Nitrogen 13 mg/dL (9-16); C Reactive Protein 0.26 mg/dL (< or = 0.50); Calcium 9.4 mg/dL (8.4-10.2); Carbon Dioxide 28 mmol/L (22-29); Chloride 99 mmol/L (96-108); Creatinine Clr Calc Pharmacy 61.1; Estimated Glomerular Filt Rate 49; Glucose Random 253 mg/dL (60-115); Lipase 20 U/L (8-78); Potassium 3.6 mmol/L (3.3-5.1); Sodium 137 mmol/L (135-145)
[2023-03-19 00:13] LABS: Troponin-I High Sensitivity 5.9 ng/L (<3.5-35.0)
[2023-03-19] MEDS: oxyCODONE HCl Immed Release 5 MG TABLET PO (00:13)
[2023-03-19] MEDS: Fluorescein Sodium STRIP 1 STRIP EYE-RIGHT (00:21)
[2023-03-19 00:27] LABS: Erythrocyte Sedimentation Rate 21 MM/HR (0-15)
--- NOTE | 2023-03-19 01:41 | PC.NURSE ---
pt refused to wait for eye drops
== END 2023-03-19 01:42 | disposition home or self-care (01) ==
PROVIDERS: Emergency Provider Emergency Medicine; PCP Internal Medicine
DX: H34.231 Retinal artery branch occlusion, right eye (principal); H57.11 Ocular pain, right eye; R51.9 Headache, unspecified; R94.31 Abnormal electrocardiogram [ECG] [EKG]; Z79.899 Other long term (current) drug therapy
CPT/HCPCS: 36415; 70450; 80048; 80076; 83690; 84484; 85025; 85652; 86140; 93005; 99284

== ENCOUNTER 2023-03-26 07:58 | Outpatient (REF) | payer OTHER, SELFPAY ==
[2023-03-26 09:22] LABS: Appearance Urine Cloudy; Color Urine Yellow; Glucose Urine UA 100 mg/dL (Negative); Leukocyte Esterase Urine Negative (Negative); Nitrite Urine Negative (Negative); PH 5.5 (5.0-9.0); Specific Gravity - Urine 1.015 (1.005-1.025); UMIC TRIGGER UACC YES; Urine Blood Negative (Negative); Urine Ketones Negative (Negative); Urine Protein 100 (2+) mg/dL (Neg-Trace)
[2023-03-26 09:24] LABS: Bacteria Urine None Seen (None Seen); Hyaline Casts Urine 0-2 /LPF (0-2); RBC Urine 0-2 /HPF (0-2); Squamous Epithelial Cell Urine 0-2 /HPF (0-2); WBC Urine 0-5 /HPF (0-5)
[2023-03-26 09:46] LABS: Creatinine Urine 126.73 mg/dL; Microalbum/Creatinine Ratio Ur 326.6 ug/mg cr
[2023-03-26 10:00] LABS: Alanine Aminotransferase 10 U/L (0-40); Alkaline Phosphatase 96 U/L (39-117); Anion Gap 14 (12-20); Aspartate Amino Transferase 11 U/L (5-37); Bilirubin Total 0.3 mg/dL (0.0-1.0); Blood Urea Nitrogen 14 mg/dL (9-16); Calcium 8.5 mg/dL (8.4-10.2); Carbon Dioxide 24 mmol/L (22-29); Chloride 107 mmol/L (96-108); Cholesterol 217 mg/dL; Estimated Glomerular Filt Rate 49; Glucose Fasting 251 mg/dL (60-99); HDL Cholesterol 44 mg/dL; LDL Cholesterol Calculated 129 mg/dl; Potassium 3.7 mmol/L (3.3-5.1); Sodium 141 mmol/L (135-145); Total Protein 6.5 g/dL (6.5-8.0); Triglycerides 224 mg/dL; Vitamin D 25-OH Total 11.3 ng/mL (>30)
== END 2023-03-26 07:59 | disposition home or self-care (01) ==
LOC: HO.LAB 07:58
PROVIDERS: PCP Internal Medicine; Visit Provider Internal Medicine
DX: E78.00 Pure hypercholesterolemia, unspecified (principal); E11.9 Type 2 diabetes mellitus without complications; E55.9 Vitamin D deficiency, unspecified; R30.0 Dysuria
CPT/HCPCS: 36415; 80053; 80061; 81001; 82043; 82306

== ENCOUNTER 2023-04-05 13:47 | Outpatient (REF) | payer OTHER, SELFPAY ==
--- NOTE | ~2023-04-05 | US_ITS ---
EXAMINATION: US EXTRACRANIAL CAROTID DUPLEX, BILATERAL CLINICAL INFORMATION: Retinal artery branch occlusion, right eye. COMPARISON: Carotid ultrasound 03/15/2018. TECHNIQUE: Real-time ultrasound and Doppler techniques (integrating B-mode 2-D vascular images, Doppler spectral analysis and color-flow Doppler imaging) were utilized to interrogate the extracranial carotid arteries, the vertebral arteries and proximal subclavian arteries bilaterally. The degree of stenosis is determined by criteria similar to NASCET. FINDINGS: Right Side: 1. There is no atherosclerotic plaque seen in the bifurcation/proximal ICA region. 2. The common carotid artery PSV proximally is 96 cm/s and distally 80 cm/s. 3. The proximal internal carotid artery velocities are 68 cm/s systolic and 12 cm/s diastolic. 4. The proximal external carotid artery PSV is 71 cm/s. 5. The vertebral artery shows antegrade flow. 6. The subclavian artery waveforms are normal. Left Side: 1. There is no atherosclerotic plaque seen in the bifurcation/proximal ICA region. 2. The common carotid artery PSV proximally is 123 cm/s and distally 86 cm/s. 3. The proximal internal carotid artery velocities are 107 cm/s systolic and 16 cm/s diastolic. 4. The proximal external carotid artery PSV is 145 cm/s. 5. The vertebral artery shows antegrade flow. 6. The subclavian artery velocity is elevated at 225 cm/s. US/US carotid duplex BI IMPRESSION: 1. RIGHT: Normal right internal carotid artery without atherosclerotic plaque or hemodynamically significant stenosis. 2. LEFT: Normal left internal carotid artery without atherosclerotic plaque or hemodynamically significant stenosis. 3. Possible left subclavian artery stenosis. No evidence of flow reversal in the vertebral artery.
== END 2023-04-05 13:48 | disposition home or self-care (01) ==
LOC: HO.US 13:47
PROVIDERS: PCP Internal Medicine; Visit Provider Internal Medicine
DX: H34.231 Retinal artery branch occlusion, right eye (principal); E78.00 Pure hypercholesterolemia, unspecified
CPT/HCPCS: 93880

== ENCOUNTER 2023-04-07 13:14 | Emergency (ER) | payer OTHER, SELFPAY ==
--- NOTE | 2023-04-07 13:16 | ECG_ITS ---
Test Reason : CHEST PAIN Blood Pressure : / mmHG Vent. Rate : 072 BPM Atrial Rate : 072 BPM P-R Int : 158 ms QRS Dur : 086 ms QT Int : 450 ms P-R-T Axes : 048 -31 -56 degrees QTc Int : 492 ms Normal sinus rhythm Left axis deviation ST & T wave abnormality, consider inferior ischemia Prolonged QT Abnormal ECG When compared with ECG of 18-MAR-2023 23:41, No significant change was found Referred By: Lindy Olmedo Electronically Signed By:JONO SAMUEL MD
[2023-04-07 13:25] VITALS: BP 97/57; PULSE 72; RESP 18; TEMP 36.8; O2SAT 98; BMI 28.9
--- NOTE | 2023-04-07 13:26 | ED.CHESTPAIN ---
HPI - Chest Pain General Chief Complaint: Chest Pain Stated Complaint: chest pain, body aches, dizzy spells Time Seen by Provider: 04/07/23 14:06 Source: patient Mode of arrival: wheelchair Limitations: no limitations History of Present Illness HPI narrative: 62 yo male with history of CAD, HTN, HLD, smoker, DM, CKD, DVT/PE on anticoagulation, right eye blindness 22/ retinal artery occlusion who presents to the ER for evaluation of left sided chest pain for the last 3 days, along with dizziness and feeling like he is going to pass out when he was walking at the mall today. No SOB. 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 BP 90/50s in triage. He states he is still having the pain right now. The pain is worsening. MD complaint: chest pain Pertinent past history: coronary artery disease Onset (ago): day(s) (3) Timing of current episode: constant Prior episodes: Yes Onset: during exertion Pain location: left chest Pain radiation: none Severity: severe Quality: sharp Relieving factors: nothing Exacerbating factors: nothing Treatment prior to arrival: aspirin and nitroglycerin Related Data Home Medications Medication Instructions Recorded Confirmed gabapentin 100 mg capsule 200 mg PO BID 03/25/23 03/25/23 Previous Rx's Medication Instructions Recorded BLOOD PRESSURE MONITOR #1 ea 03/12/21 DIABETIC SHOES #2 ea 03/12/21 ROLLATOR #1 ea 03/12/21 SHOWER CHAIR #1 ea 03/12/21 nitroglycerin 0.4 mg sublingual 0.4 mg sublingual Q5M PRN chest 07/20/21 tablet pain #10 tabs aspirin 81 mg tablet,delayed 81 mg PO DAILY 90 days #90 tabs 05/04/22 release morphine 15 mg immediate release 15 mg PO Q4-6H PRN pain #14 tabs 02/08/23 tablet ProAir HFA 90 mcg/actuation 2 puff PO Q6H PRN shortness of 03/25/23 aerosol inhaler (albuterol sulfate) breath or wheezing #8.5 ea atorvastatin 40 mg tablet 40 mg PO BEDTIME 90 days #90 tabs 03/25/23 insulin lispro 100 unit/mL 10 unit (0.1 mL) subcut TID 30 03/25/23 subcutaneous pen (Admelog SoloStar days #9 mL U-100 Insulin lispro) lancets 28 gauge (FreeStyle ##100 03/25/23 Lancets) lisinopril 10 mg tablet 10 mg PO DAILY 90 days #90 tabs 03/25/23 lorazepam 0.5 mg tablet 0.5 mg PO BID PRN anxiety #30 tabs 03/25/23 metoprolol succinate 100 mg 100 mg PO DAILY 90 days #90 tabs 03/25/23 tablet,extended release 24 hr omeprazole 40 mg capsule,delayed 40 mg PO DAILY 90 days #90 caps 03/25/23 release pen needle, diabetic 29 gauge x #100 ea 03/25/2310/26 (BD Ultra-Fine Original Pen Needle) quetiapine 200 mg tablet 200 mg PO BID #180 tabs 03/25/23 trazodone 100 mg tablet 100 mg PO BEDTIME PRN sleep 30 03/25/23 days #30 tabs enoxaparin 100 mg/mL subcutaneous 90 mg (0.9 mL) subcut Q12H #60 mL 03/26/23 syringe (Mindframenox) blood sugar diagnostic (FreeStyle #120 ea 04/02/23 Lite Strips) blood-glucose meter (FreeStyle #1 ea 04/02/23 Lite Meter kit) insulin glargine 100 unit/mL (3 50 unit (0.5 mL) subcut BEDTIME 04/05/23 mL) subcutaneous pen (Lantus #15 mL Solostar U-100 Insulin) Allergies Allergy/AdvReac Type Severity Reaction Status Date / Time nicotine AdvReac Unknown tachycardia, Verified 03/25/23 11:43 shaking Review of Systems Review of Systems: Yes all other systems are reviewed and are negative [facility] Past Medical History Medical History (Updated 04/07/23 @ 15:04 by DAVID Easton) Anxiety Benign essential hypertension CAD (coronary artery disease) Chest pain Deep vein thrombosis (DVT) of right lower extremity Depression Essential hypertension GERD (gastroesophageal reflux disease) Hx pulmonary embolism Hyperlipidemia LDL goal <100 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 COVID-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 Low back pain Lumbar degenerative disc disease Obesity (BMI 30-39.9) Onychomycosis Overweight (BMI 25.0-29.9) Pelvic pain in male Proteinuria Pure hypercholesterolemia PVD (peripheral vascular disease) Recurrent chest pain Retinal artery branch occlusion of right eye Sleep apnea Smoker 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 Surgical History H/O colonoscopy History of ankle surgery History of arthroplasty of left knee History of esophagogastroduodenoscopy (EGD) History of heart artery stent History of inguinal hernia repair History of knee surgery History of lumbar surgery Hx of cataract surgery Family History Family History Father Cancer Mother Diabetes Social History Social History Housing: Apartment Alcohol intake: current Alcohol intake frequency: holidays/special occasions only Alcohol type: beer Patient Tobacco Use Status: Current everyday Tobacco user Tobacco use type: Cigarette Cigarettes Per Day: 3 e-Cigarette/Vaping Use: Never Used Second Hand Smoke Exposure: Yes Advance Directives: Yes Advance Directives on File: Yes Advance Directives Date on File: 03/07/21 service: No Current occupational status: unemployed Cognitive needs: No Hearing needs: No Vision needs: No Physical Exam Vital Signs: Vital Signs: Last Vital Signs Temp 98.2 F 04/07/23 13:25 Pulse 72 04/07/23 13:25 Resp 18 04/07/23 13:25 BP 97/57 L 04/07/23 13:25 Pulse Ox 98 04/07/23 13:25 O2 Del Method Room Air 04/07/23 13:25 BMI result Body Mass Index 28.9 Appearance: Alert. Oriented X3. No acute distress. HEENT: normal inspection, wearing sunglasses CVS: Normal heart rate and rhythm. Pulses normal. Respiratory: No respiratory distress. Lungs diminished at the bases but otherwise clear Skin: Skin warm and dry. Normal skin color. Normal skin turgor. No rashes. Extremities: no LE edema Neuro: Oriented X 3.normal speech and cognition, grossly nonfocal Course Course Course Narrative: RME - 62 yo male with history of CAD, HTN, HLD, smoker, DM, CKD, DVT/PE, right eye blindness 22/ retinal artery occlusion who presents to the ER for evaluation of left sided chest pain for the last 3 days, along with dizziness and feeling like he is going to pass out. 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 BP 90/50s in triage. Plan: EKG, labs, to go back to treatment room Reevaluation(s) Reevaluation #1: patient did not have labs done. no repeat vitals. he has been in a treatment room for almost 2 hours and wants to leave. he wants to go to another hospital discussed the importance of staying for treatment given his co-morbidities and pain, concern for cardiac event. he expressed understanding about risks of leave AMA including AK and . patient demanding to leave now despite risks of Medical Decision Making Medical Decision Making MDM Narrative: 62 yo male with history of CAD, HTN, HLD, smoker, DM, CKD, DVT/PE, right eye blindness 22/ retinal artery occlusion who presents to the ER for evaluation of left sided chest pain for the last 3 days, along with dizziness and feeling like he is going to pass out. 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 BP 90/50s in triage. brought directly to treatment room, labs ordered however patient pulled off the BP cuff and monitor saying he wanted to leave. he reported still having pain but not wanting to stay here. he wants to go to another hospital and his ride is here. risks of leaving AMA discussed including AK and . he expressed understanding. signed AMA paperwork and left the ER despite the risks Differential Diagnosis Differential Diagnoses: The differential diagnosis associated with the presentation includes ACS, AK, NSTEMI, aortic dissection, myocarditis, pericarditis, orthostatic hypotension, dehydration, anemia, PNA Admission/Observation Consideration of admission/observation: Escalation of care including admission/observation considered multiple cardiac risk factors with chest pain, pre-syncope Independent Interpretation I performed an independent interpretation of an: EKG Interpretation: ekg w/ NSR, HR 72 bpm, t-wave inversions in II, III, aVF, V5, V6 no change from February 2023 External Record Review External record reviewed: Outpatient record and Prior outpatient labs Chronic Conditions Patient?s care impacted by: Diabetes, Hypertension and Other (CAD) Scores Heart Score History: -0- slightly suspicious ECG: -0- normal Age: -1- >45 - <65 Risk factory: -2- 3 or more risk factors or treated atherosclerosis Critical Care Time Critical Care Time Critical Care Time: No Discharge Plan Discharge Clinical Impression: Chest pain Patient Disposition: Left Against Medical Advice Instructions: Chest Pain (DC) Additional Instructions: COME BACK TO THE ER IF YOU CHANGE YOUR MIND Prescriptions: No Action aspirin 81 mg tablet,delayed release (DR/EC) 81 mg PO DAILY 90 Days Qty: 90 3RF (DME) FreeStyle Lite Strips Strip See Rx Instructions .ROUTE .MEDSUPPLY Qty: 120 12RF Rx Instructions: TEST 4 TIMES DAILY (DME) blood-glucose meter [FreeStyle Lite Meter] Kit See Rx Instructions .Route Qty: 1 0RF Rx Instructions: As directed insulin glargine [Lantus Solostar U-100 Insulin] 100 unit/mL (3 mL) insulin pen 50 unit subcut BEDTIME Qty: 15 3RF Rx Instructions: or as directed morphine 15 mg tablet 15 mg PO Q4-6H PRN (Reason: pain) Qty: 14 0RF Rx Instructions: Patient may request partial fill; Partial Fill upon patient request. (DME) SHOWER CHAIR See Rx Instructions .Route .MEDSUPPLY Qty: 1 0RF Rx Instructions: As directed (DME) ROLLATOR See Rx Instructions .Route .MEDSUPPLY Qty: 1 0RF Rx Instructions: As directed (DME) DIABETIC SHOES See Rx Instructions .Route .MEDSUPPLY Qty: 2 0RF Rx Instructions: As directed (DME) BLOOD PRESSURE MONITOR See Rx Instructions .Route .MEDSUPPLY Qty: 1 0RF Rx Instructions: As directed nitroglycerin 0.4 mg tablet, sublingual 0.4 mg sublingual Q5M PRN (Reason: chest pain) Qty: 10 0RF Rx Instructions: do not exceed 3 doses per episode gabapentin 100 mg capsule 200 mg PO BID lorazepam 0.5 mg tablet 0.5 mg PO BID PRN (Reason: anxiety) Qty: 30 0RF atorvastatin 40 mg tablet 40 mg PO BEDTIME 90 Days Qty: 90 1RF insulin lispro [Admelog SoloStar U-100 Insulin] 100 unit/mL insulin pen 10 unit subcut TID 30 Days Qty: 9 3RF (DME) lancets [FreeStyle Lancets] 28 gauge misc See Rx Instructions .ROUTE .COMPLEX Qty: 100 12RF Dose Instruction: USE TO TEST 4 TIMES DAILY Rx Instructions: USE TO TEST 4 TIMES DAILY lisinopril 10 mg tablet 10 mg PO DAILY 90 Days Qty: 90 1RF metoprolol succinate 100 mg tablet extended release 24 hr 100 mg PO DAILY 90 Days Qty: 90 1RF omeprazole 40 mg capsule,delayed release(DR/EC) 40 mg PO DAILY 90 Days Qty: 90 1RF (DME) pen needle, diabetic [BD Ultra-Fine Orig Pen Needle] 29 gauge x 1/2 needle See Rx Instructions .Route Qty: 100 6RF Rx Instructions: Test 3 Times Daily albuterol sulfate [ProAir HFA] 90 mcg/actuation HFA aerosol inhaler 2 puff PO Q6H PRN (Reason: shortness of breath or wheezing) Qty: 8.5 1RF quetiapine 200 mg tablet 200 mg PO BID Qty: 180 0RF trazodone 100 mg tablet 100 mg PO BEDTIME PRN (Reason: sleep) 30 Days Qty: 30 2RF enoxaparin [Lovenox] 100 mg/mL syringe 90 mg SUBCUT Q12H Qty: 60 4RF Stand Alone Forms: Against Medical Advice Interventions: ED Discharge Assessment Last Done: 04/07/23 15:17 Discharge Date/Time: 04/07/23 15:17
--- NOTE | 2023-04-07 15:02 | PC.NURSE ---
PT REFUSING VITAL SIGNS, WANTS TO LEAVE
== END 2023-04-07 15:17 | disposition left against medical advice (07) ==
PROVIDERS: Emergency Provider Emergency Medicine; PCP Internal Medicine
DX: R07.9 Chest pain, unspecified (principal); R42 Dizziness and giddiness; I25.10 Atherosclerotic heart disease of native coronary artery without angina pectoris; E78.5 Hyperlipidemia, unspecified; E11.22 Type 2 diabetes mellitus with diabetic chronic kidney disease; I13.10 Hypertensive heart and chronic kidney disease without heart failure, with stage 1 through stage 4 chronic kidney disease, or unspecified chronic kidney disease; N18.9 Chronic kidney disease, unspecified; Z79.01 Long term (current) use of anticoagulants
CPT/HCPCS: 93005; 99283

== ENCOUNTER → 2023-04-14 14:59 | Outpatient (BNVA) | payer OTHER, SELFPAY | PROVIDERS: PCP Internal Medicine; Visit Provider Internal Medicine Cardiovascular Disease | DX: I25.10 Atherosclerotic heart disease of native coronary artery without angina pectoris (principal); I25.84 Coronary atherosclerosis due to calcified coronary lesion; R07.89 Other chest pain; H34.231 Retinal artery branch occlusion, right eye; R63.4 Abnormal weight loss; Z68.29 Body mass index [BMI] 29.0-29.9, adult | CPT/HCPCS: 93005; 99212 ==

== ENCOUNTER → 2023-04-22 09:58 | Outpatient (REF) | payer OTHER, SELFPAY ==
--- NOTE | 2023-04-22 10:04 | CA_ITS ---
Acquisition Time: 2023-04-22 10:22:24 Total Exercise Time: 00:02:15 Test Indications: CHEST PAIN Medications: Protocol: SALOME Max HR: 112 BPM 70% of Pred: 159 BPM Max BP: 200/068 mmHG Max Work Load: 4.6 METS Exercise stress test exercise 2 min 15 sec of Salome protocol achieving 70% with need to stop due to fatigue, with moderate sob, without arrythmia, with baseline BP 150/80 and max BP 200/63, with nondiagnostic EKG for ischemia due to baseline abnormality and suboptimal heart rate. One in recliner he did report a vague discomfort in left chest that did improve with further relaxation. Test suboptimal and nondiagnostic. Will order a pharmacological nuclear stress test for further evaluation. Test reviewed with Dr Costa. Note: Pt ambulates with a cane. Has the use of one eye which he says makes him unsteady and lightheaded. This seemed to affect his ability do well on treadmill. Referred By: Colin Costa Overread By: NIKI NUÑEZ
--- NOTE | 2023-04-22 12:03 | HM_ITS ---
Cardiac event monitor Indication: Palpitations Technique: Patient was hooked up to cardiac event monitor on 04/22/2023 for total period of 30 days. Compliance rate of about 71%. Findings: Baseline was normal sinus rhythm with lowest heart rate of 82 beats per minute and fastest heart of 117 beats per minute. There were no significant pauses noted. There are no other significant tachy or Dez arrhythmias noted. Rare isolated PACs and PVCs noted. Patient activated the symptoms 5 times but only reported to symptoms 1 of which was sharp chest pain. Both of these symptoms correlated with sinus rhythm. Conclusion: 1. Baseline was normal sinus rhythm with no pauses 2. Rare isolated ectopy noted 3. Patient reported 2 events correlated with sinus rhythm MTDD
== END ==
LOC: HO.CARD 09:58
PROVIDERS: PCP Internal Medicine; Visit Provider Internal Medicine Cardiovascular Disease
DX: I25.10 Atherosclerotic heart disease of native coronary artery without angina pectoris (principal); I25.84 Coronary atherosclerosis due to calcified coronary lesion; R00.2 Palpitations
CPT/HCPCS: 93017; 93270

== ENCOUNTER → 2023-04-22 10:04 | Outpatient (BNV) | payer OTHER, SELFPAY | PROVIDERS: PCP Internal Medicine; Visit Provider Nurse Practitioner Family | DX: I49.1 Atrial premature depolarization (principal) | CPT/HCPCS: 93016; 93018; 93272 ==

== ENCOUNTER → 2023-06-15 08:59 | Outpatient (REF) | payer OTHER, SELFPAY ==
--- NOTE | ~2023-06-15 | NM_ITS ---
Myocardial perfusion study Indication: Abnormal cardiac study with prior CAD to evaluate for myocardial ischemia Technique: The patient was brought in for a Lexiscan perfusion study on 06/15/2023. Patient performed low-level exercise and was injected 0.4 mg of Lexiscan intravenously. Within a minute of injection, 30 mCi of sestamibi was given intravenously. Images were obtained using the SPECT gamma camera interlaced with the gating device. Images were obtained in supine position. Resting perfusion study was performed on 06/22/2023. Patient was administered 30 mCi of sestamibi intravenously at rest. Images were then obtained in supine position. Images obtained with and without CT attenuation. Total DLP 107 mGy-cm. Images were processed with the software and compared side to side in short axis, horizontal long axis and vertical long axis views. Findings: The stress perfusion study showed non attenuated images show some thinning and minimally reduced uptake in the inferior and inferoseptal wall of the LV myocardium. Remainder of the LV myocardium is normally perfused. Attenuation corrected images show normal uptake of radiotracer in all segments of LV myocardium. The gated study shows low normal LV systolic function with calculated LVEF of 52%. LV cavity is mildly dilated size. The gated study shows normal wall thickening and contraction of segments. Resting study shows no change in perfusion pattern compared to stress perfusion study. Gating at rest reveals normal systolic wall motion with visually estimated ejection fraction at greater than 50%. The findings are consistent with no clear reversible defect suggestive of ischemia.. NM/NM cardiolite stress test Impression: 1. Myocardial perfusion imaging study shows likely normal myocardial perfusion 2. Gated LVEF is 52% 3. Transient ischemic dilatation present EKG is nondiagnostic for ischemia
--- NOTE | 2023-06-15 09:02 | CA_ITS ---
Acquisition Time: 2023-06-15 09:43:31 Total Exercise Time: 00:02:00 Test Indications: CP,ASHD,CAD Medications: Protocol: LEXISCAN Max HR: 093 BPM 58% of Pred: 159 BPM Max BP: 146/074 mmHG Max Work Load: 1.0 METS Pharmacological stress test with Lexiscan injection while sitting and marching in place, without anginal symptoms, without arrhythmias, with normotensive response to injection, with nondiagonistic EKGs. Aminophylline 75mg IVP given to reverse Lexiscan. Nuclear images pending. Test reviewed with Dr. Flower. Referred By: Britney Pugh Overread By: Karin Macias
== END ==
LOC: HO.CARD 08:59
PROVIDERS: PCP Internal Medicine; Visit Provider Nurse Practitioner Family
DX: R07.9 Chest pain, unspecified (principal); I25.10 Atherosclerotic heart disease of native coronary artery without angina pectoris; I25.84 Coronary atherosclerosis due to calcified coronary lesion; R94.39 Abnormal result of other cardiovascular function study
CPT/HCPCS: 78452; 93017; A9500; J0280; J2785

== ENCOUNTER → 2023-06-15 09:02 | Outpatient (BNV) | payer OTHER, SELFPAY | PROVIDERS: PCP Internal Medicine; Visit Provider Nurse Practitioner | DX: I25.10 Atherosclerotic heart disease of native coronary artery without angina pectoris (principal) | CPT/HCPCS: 78452; 93016; 93018 ==

== ENCOUNTER 2024-07-05 22:59 | Emergency (ER) | payer OTHER, SELFPAY ==
--- NOTE | 2024-07-05 | ECG_ITS ---
Test Reason : AMS Blood Pressure : / mmHG Vent. Rate : 119 BPM Atrial Rate : 119 BPM P-R Int : 146 ms QRS Dur : 084 ms QT Int : 342 ms P-R-T Axes : 058 -46 065 degrees QTc Int : 481 ms Sinus tachycardia Left anterior fascicular block Minimal voltage criteria for LVH, may be normal variant ( Giovanny product ) Nonspecific T wave abnormality Abnormal ECG When compared with ECG of 07-APR-2023 13:31, Vent. rate has increased BY [address] no longer depressed in Inferior leads T wave inversion no longer evident in Inferior leads Nonspecific T wave abnormality has replaced inverted T waves in Lateral leads Referred By: Generic ED Physician Electronically Signed By:DUSTIN GARCÍA
--- NOTE | ~2024-07-05 | CT_ITS ---
EXAMINATION CT HEAD WITHOUT CONTRAST CLINICAL INFORMATION: Seizure COMPARISON: CT head March 18, 2023 TECHNIQUE: CT of the head was performed without intravenous contrast. Reformatted axial, coronal, and sagittal images were reviewed. This CT examination was performed using dose optimization techniques as appropriate, variously including the following: *Automated exposure control *Adjustment of mA and/or kV according to patient size (this includes techniques or standardized protocols for targeted exams where dose is matched to indication/reason for exam; i.e. extremities or head) *Use of iterative reconstruction technique DLP: 784 mGy-cm FINDINGS: No intracranial hemorrhage, extra-axial fluid collection, or midline shift is identified. Rondon-white matter differentiation is preserved. Chronic lacunar infarct versus prominent perivascular space in the left basal ganglia. The ventricles are within normal limits. Basal cisterns are within normal limits. Paranasal sinuses are clear. Mastoid air cells and middle ear cavities are clear. No acute calvarial fractures. CT/CT head/brain wo IV con IMPRESSION: No acute intracranial abnormality. Electronically signed by: Jason Tillman DO 07/06/2024 12:45 AM EDT
[2024-07-05 23:07] VITALS: BP 101/66; PULSE 128; O2SAT 99
[2024-07-05 23:25] VITALS: BP 121/75; PULSE 120; RESP 16; TEMP 36.6; O2SAT 100; BMI 28.0
[2024-07-05 23:34] LABS: Glucose, Whole Blood 147 mg/dL (60-115)
--- NOTE | 2024-07-05 23:39 | ED.AMS ---
HPI - Altered Mental Status General Chief Complaint: Altered Mental Status Stated Complaint: syncopal episode lasting 5 mins Time Seen by Provider: 07/05/24 23:31 Source: patient Mode of arrival: ambulatory Limitations: no limitations History of Present Illness ED Provider: donavan BOYD narrative: Patient's history of hypertension hyperlipidemia diabetes coronary artery disease status post stents peripheral vascular disease with history of DVT and PE used to be on Eliquis, anxiety and depression comes here for change in mental status prior to arrival. Patient has been having abdominal discomfort and nausea feeling since yesterday prior to arrival patient more unresponsive and acting vague with more confusion no fall Related Data Home Medications ?Medication ?Instructions ?Recorded ?Confirmed gabapentin 100 mg capsule 200 mg PO BID 03/25/23 04/14/23 Previous Rx's ?Medication ?Instructions ?Recorded DIABETIC SHOES #2 03/12/21 ROLLATOR #1 ea 03/12/21 SHOWER CHAIR #1 ea 03/12/21 nitroglycerin 0.4 mg sublingual 0.4 mg sublingual Q5M PRN chest 07/20/21 tablet pain #10 tabs morphine 15 mg immediate release 15 mg PO Q4-6H PRN pain #14 tabs 02/08/23 tablet lorazepam 0.5 mg tablet 0.5 mg PO BID PRN anxiety #30 tabs 03/25/23 blood-glucose meter (FreeStyle #1 04/02/23 Lite Meter kit) blood pressure monitor (Blood #1 04/14/23 Pressure Kit) aspirin 81 mg tablet,delayed 81 mg PO DAILY 90 days #90 tabs 04/15/23 release Ventolin HFA 90 mcg/actuation 2 puff PO Q6H PRN for wheezing #18 04/16/23 aerosol inhaler (albuterol sulfate) enoxaparin 100 mg/mL subcutaneous 90 mg (0.9 mL) subcut Q12H #60 mL 09/15/23 syringe (Lovenox) pen needle, diabetic 29 gauge x #100 ea 12/17/23 1 (BD Ultra-Fine Original Pen Needle) metoprolol succinate 100 mg 100 mg PO DAILY 90 days #90 tabs 02/04/24 tablet,extended release 24 hr quetiapine 200 mg tablet 200 mg PO BID #180 tabs 03/02/24 trazodone 100 mg tablet 100 mg PO BEDTIME PRN for insomnia 04/05/24 #30 tabs blood sugar diagnostic (FreeStyle #120 ea 05/16/24 Lite Strips) insulin glargine-yfgn 100 unit/mL 50 unit (0.5 mL) subcut 05/16/24 (3 mL) subcutaneous pen DIRECTED #45 mL insulin lispro 100 unit/mL 10 unit (0.1 mL) subcut TID 30 05/16/24 subcutaneous pen (Admelog SoloSt #15 mL U-100 Insulin lispro) lancets 28 gauge (FreeStyle #50 ea 06/10/24 Lancets) atorvastatin 40 mg tablet 40 mg PO BEDTIME 90 days #90 tabs 07/03/24 lisinopril 10 mg tablet 10 mg PO DAILY 90 days #90 tabs 07/03/24 omeprazole 40 mg capsule,delayed 40 mg PO DAILY 90 days #90 caps 07/03/24 release Allergies Allergy/AdvReac Type Severity Reaction Status Date / Time nicotine AdvReac Unknown tachycardia, Verified 07/05/24 23:27 shaking Review of Systems Review of Systems: Yes Unobtainable due to mental status [facility] Past Medical History Medical History Retinal artery branch occlusion of right eye Overweight (BMI 25.0-29.9) Recurrent chest pain Depression Anxiety Chest pain Onychomycosis Smoker Obesity (BMI 30-39.9) Pure hypercholesterolemia Benign essential hypertension Lumbar degenerative disc disease Pelvic pain in male Low back pain Deep vein thrombosis (DVT) of right lower extremity Type 2 diabetes mellitus with other diabetic kidney complication terminal gauger current use of insulin Proteinuria Essential hypertension Hyperlipidemia LDL goal <100 PVD (peripheral vascular disease) CAD (coronary artery disease) Hx pulmonary embolism GERD (gastroesophageal reflux disease) 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 COVID-19 virus Sleep apnea Type 2 diabetes mellitus with diabetic polyneuropathy Surgical History Hx of cataract surgery History of esophagogastroduodenoscopy (EGD) H/O colonoscopy History of arthroplasty of left knee History of lumbar surgery History of ankle surgery History of knee surgery History of heart artery stent History of inguinal hernia repair Family History Family History Father Cancer Mother Diabetes Social History Social History Housing: Apartment Alcohol intake: current Alcohol intake frequency: holidays/special occasions only Alcohol type: beer Patient Tobacco Use Status: Current everyday Tobacco user Tobacco use type: Cigarette Cigarettes Per Day: 3 e-Cigarette/Vaping Use: Never Used Second Hand Smoke Exposure: Yes Advance Directives: Yes Advance Directives on File: Yes Advance Directives Date on File: 03/07/21 Do you have a plan to hurt others: No Plan service: No Current occupational status: unemployed Cognitive needs: No Hearing needs: No Vision needs: No Physical Exam ED Vital Signs: Vital Signs - 24 hr 07/05/24 23:25 07/06/24 00:42 Temperature 97.8 F 97.6 F Pulse Rate 120 H 104 H Respiratory Rate 16 16 Blood Pressure 121/75 137/85 Pulse Oximetry 100 99 Oxygen Delivery Method Room Air Room Air BMI result Body Mass Index 28.0 Appearance: Alert. Oriented X1-2. No acute distress. Eyes: PERRLA, No Nystagmus ENT: Pharynx normal. Oral Mucosa moist Neck: Normal inspection. Neck supple. CVS: Normal heart rate and rhythm. Pulses normal. Respiratory: No respiratory distress. Equal air entry bilateral, no wheezing/rales/rhonchi Abdomen: Soft and nontender. Bowel sounds are present, no mass palpable, no CVA tenderness Skin: Skin warm and dry. Normal skin color. Normal skin turgor. Extremities: No lower extremity edema. No calf tenderness Neuro: Oriented X 3. Moving all 4 extremities no facial asymmetry Medications Administered Discontinued Medications Generic Name Dose Route Start Last Admin Trade Name Freq PRN Reason Stop Dose Admin Sodium Chloride 1,000 mls @ 999 mls/hr 07/05/24 23:37 07/05/24 23:40 Ns IV 07/06/24 00:37 999 mls/hr .Q1H1M ONE Administration Medical Decision Making Medical Decision Making MDM Narrative: 00:05 Patient has acute change in mental status now he says that he used cocaine just prior to arrival getting improved now oriented x3 asking for water to drink Differential Diagnosis Differential Diagnoses: The differential diagnosis associated with the presentation includes Polysubstance abuse/alcohol abuse/internal cranial injury/metabolic etiology/ACS Admission/Observation Consideration of admission/observation: Escalation of care including admission/observation considered Lab Data MDM Lab Attestation statement: I reviewed the patient's lab results. 07/05/24 23:35 07/05/24 23:35 Labs: Lab Results 07/05/24 07/05/24 07/06/24 Range/Units 23:15 23:35 00:44 WBC 11.2 H (4.8-10.8) X10*3/uL RBC 4.19 L (4.60-5.80) X10*6/uL Hgb 11.9 L (14.0-18.0) g/dl Hct 33.5 L (42.0-52.0) % MCV 80.0 (80.0-98.0) fL MCH 28.4 (27.0-33.0) pg MCHC 35.5 (31.0-36.0) g/dl RDW 13.1 (11.0-16.0) % Plt Count 337 (160-400) X10*3/uL MPV 9.2 L (9.4-12.4) fL Immature Gran % (Auto) 0.6 H (0.0-0.4) % Neut % (Auto) 61.2 (45-73) % Lymph % (Auto) 26.6 (20-40) % [place] % (Auto) 9.9 (2-11) % Eos % (Auto) 1.4 (0-4) % Baso % (Auto) 0.3 (0-2) % Lymph # (Auto) 3.0 (1.2-4.9) X10*3/uL [place] # (Auto) 1.1 (0.1-1.2) X10*3/uL Eos # (Auto) 0.2 (0.0-0.4) X10*3/uL Baso # (Auto) 0.0 (0.0-0.2) X10*3/uL Abs Immat Gran (auto) 0.07 H (0.00-0.03) X10*3/uL Absolute Neuts (auto) 6.8 (2.0-8.3) x10*3/uL Absolute Nucleated RBC 0.000 (0.0-0.012) X10*3/uL Nucleated RBC % (auto) 0.0 (0.0-0.2) /100WBC Sodium 135 (135-145) mmol/L Potassium 3.3 (3.3-5.1) mmol/L Chloride 99 (96-108) mmol/L Carbon Dioxide 21 L (22-29) mmol/L Anion Gap 18 (12-20) BUN 15 (9-16) mg/dL Creatinine 1.93 H (0.5-1.4) mg/dL Estim Creat Clear Calc 44.4 Estimated GFR 35 POC Glucose 147 H (60-115) mg/dL Random Glucose 156 H (60-115) mg/dL Calcium 9.2 D (8.4-10.2) mg/dL Total Bilirubin 0.3 (0.0-1.0) mg/dL AST 8 (5-37) U/L ALT 12 (0-40) U/L Alkaline Phosphatase 116 (39-117) U/L Troponin I High Sens 16.5 D (<3.5-35.0) ng/L Total Protein 7.6 (6.5-8.0) g/dL Albumin 4.1 (3.5-5.0) g/dL Urine Opiates Screen Not Detected (Not Detect) Ur Buprenorphine Scrn Not Detected (Not Detect) ng/mL Ur Oxycodone Screen Not Detected (Not Detect) ng/mL Urine Methadone Screen Not Detected (Not Detect) ng/mL Urine Fentanyl Screen Not Detected (Not Detect) Ur Barbiturates Screen Not Detected (Not Detect) Ur Phencyclidine Scrn Not Detected (Not Detect) Ur Amphetamines Screen Not Detected (Not Detect) U Benzodiazepines Scrn Not Detected (Not Detect) Urine Cocaine Screen POSITIVE H (Not Detect) U Marijuana (THC) Screen Not Detected (Not Detect) Influenza Type A (PCR) NEGATIVE (Negative) Influenza Type B (PCR) NEGATIVE (Negative) RSV RNA Qual (PCR) NEGATIVE (Negative) SARS-CoV-2 RNA (RT-PCR) NEGATIVE (Negative) Independent Interpretation I performed an independent interpretation of an: EKG and CT Scan Radiology Impression Discussion of test interpretation with radiology: I have reviewed the radiologist's reading. Radiologist Impression: CT/CT head/brain wo IV con IMPRESSION: No acute intracranial abnormality. Electronically signed by: Jason Tillman DO 07/06/2024 12:45 AM EDT RP Discharge Plan Discharge Clinical Impression: Altered mental status, Cocaine abuse Patient Disposition: Home, Self-Care Instructions: Cocaine Abuse (ED), Altered Mental Status (ED) Additional Instructions: Stop using cocaine and follow up with your PCP/detox Prescriptions: No Action (DME) blood-glucose meter [FreeStyle Lite Meter] Kit See Rx Instructions .Route Qty: 1 0RF Rx Instructions: As directed aspirin 81 mg tablet,delayed release (DR/EC) 81 mg PO DAILY 90 Days Qty: 90 3RF albuterol sulfate [Ventolin HFA] 90 mcg/actuation HFA aerosol inhaler 2 puff PO Q6H PRN (Reason: for wheezing) Qty: 18 1RF enoxaparin [Lovenox] 100 mg/mL syringe 90 mg SUBCUT Q12H Qty: 60 4RF (DME) pen needle, diabetic [BD Ultra-Fine Orig Pen Needle] 29 gauge x 1/2 needle See Rx Instructions .Route Qty: 100 6RF Rx Instructions: Test 3 Times Daily metoprolol succinate 100 mg tablet extended release 24 hr 100 mg PO DAILY 90 Days Qty: 90 0RF quetiapine 200 mg tablet 200 mg PO BID Qty: 180 0RF trazodone 100 mg tablet 100 mg PO BEDTIME PRN (Reason: for insomnia) Qty: 30 0RF (DME) FreeStyle Lite Strips Strip See Rx Instructions .ROUTE .MEDSUPPLY Qty: 120 12RF Rx Instructions: TEST 4 TIMES DAILY insulin glargine-yfgn 100 unit/mL (3 mL) insulin pen 50 unit subcut DIRECTED Qty: 45 1RF insulin lispro [Admelog SoloStar U-100 Insulin] 100 unit/mL insulin pen 10 unit subcut TID 30 Days Qty: 15 1RF (DME) lancets [FreeStyle Lancets] 28 gauge misc See Rx Instructions .ROUTE .COMPLEX Qty: 50 0RF Dose Instruction: USE TO TEST 4 TIMES DAILY Rx Instructions: USE TO TEST 4 TIMES DAILY atorvastatin 40 mg tablet 40 mg PO BEDTIME 90 Days Qty: 90 0RF omeprazole 40 mg capsule,delayed release(DR/EC) 40 mg PO DAILY 90 Days Qty: 90 0RF lisinopril 10 mg tablet 10 mg PO DAILY 90 Days Qty: 90 0RF morphine 15 mg tablet 15 mg PO Q4-6H PRN (Reason: pain) Qty: 14 0RF Rx Instructions: Patient may request partial fill; Partial Fill upon patient request. ([facility] [place]) SHOWER CHAIR See Rx Instructions .Route .MEDSUPPLY Qty: 1 0RF Rx Instructions: As directed ([facility] [place]) ROLLATOR See Rx Instructions .Route .MEDSUPPLY Qty: 1 0RF Rx Instructions: As directed ([facility] [place]) DIABETIC SHOES See Rx Instructions .Route .MEDSUPPLY Qty: 2 0RF Rx Instructions: As directed nitroglycerin 0.4 mg tablet, sublingual 0.4 mg sublingual Q5M PRN (Reason: chest pain) Qty: 10 0RF Rx Instructions: do not exceed 3 doses per episode gabapentin 100 mg capsule 200 mg PO BID lorazepam 0.5 mg tablet 0.5 mg PO BID PRN (Reason: anxiety) Qty: 30 0RF ([facility] [place]) blood pressure monitor [Blood Pressure Kit] Kit See Rx Instructions .Route Qty: 1 0RF Rx Instructions: As directed Print Language: Vietnamese
[2024-07-05] MEDS: 0.9 % Sodium Chloride 1,000 ML 999 ML IV (23:40)
--- NOTE | 2024-07-05 23:42 | PC.NURSE ---
pt biba from home, alert to self only at this time. pt baseline a&ox4. pt family at bedside reports pt had gone unresponsive for 5 minutes, family reports they think he had seizure, pt was not noted to have any extra movement. on arrival pt continues to be confused and unable to follow commands. called to bedside. 18G placed in left wrist, fluids administered.
[2024-07-05 23:48] LABS: MANUAL DIFF FLAG NO
[2024-07-05 23:49] LABS: Basophils Percent Auto 0.3 % (0-2); Eosinophils Absolute Auto 0.2 X10*3/uL (0.0-0.4); Eosinophils Percent Auto 1.4 % (0-4); Hematocrit 33.5 % (42.0-52.0); Hemoglobin 11.9 g/dl (14.0-18.0); Imm Gran Abs Auto 0.07 X10*3/uL (0.00-0.03); Imm Gran Pct Auto 0.6 % (0.0-0.4); Lymphocytes Percent Auto 26.6 % (20-40); Mean Corpuscular HGB Conc 35.5 g/dl (31.0-36.0); Mean Corpuscular Hemoglobin 28.4 pg (27.0-33.0); Mean Platelet Volume 9.2 fL (9.4-12.4); Monocytes Absolute Auto 1.1 X10*3/uL (0.1-1.2); Monocytes Percent Auto 9.9 % (2-11); Neutrophils Absolute Auto 6.8 x10*3/uL (2.0-8.3); Neutrophils Percent Auto 61.2 % (45-73); Platelet Count 337 X10*3/uL (160-400); Red Blood Count 4.19 X10*6/uL (4.60-5.80); Red Cell Distribution Width 13.1 % (11.0-16.0); White Blood Count 11.2 X10*3/uL (4.8-10.8)
[2024-07-06 00:05] LABS: Alanine Aminotransferase 12 U/L (0-40); Albumin Level 4.1 g/dL (3.5-5.0); Alkaline Phosphatase 116 U/L (39-117); Anion Gap 18 (12-20); Aspartate Amino Transferase 8 U/L (5-37); Bilirubin Total 0.3 mg/dL (0.0-1.0); Blood Urea Nitrogen 15 mg/dL (9-16); Calcium 9.2 mg/dL (8.4-10.2); Carbon Dioxide 21 mmol/L (22-29); Chloride 99 mmol/L (96-108); Creatinine Clr Calc Pharmacy 44.4; Estimated Glomerular Filt Rate 35; Glucose Random 156 mg/dL (60-115); Potassium 3.3 mmol/L (3.3-5.1); Sodium 135 mmol/L (135-145); Total Protein 7.6 g/dL (6.5-8.0)
[2024-07-06 00:09] LABS: Troponin-I High Sensitivity 16.5 ng/L (<3.5-35.0)
[2024-07-06 00:27] LABS: Influenza A PCR NEGATIVE (Negative); Influenza B PCR NEGATIVE (Negative); Resp Syncy Virus RNA Qual PCR NEGATIVE (Negative); SARS COV2 PCR INHOUSE NEGATIVE (Negative)
[2024-07-06 00:42] VITALS: BP 137/85; PULSE 104; RESP 16; TEMP 36.4; O2SAT 99
--- NOTE | 2024-07-06 00:46 | PC.NURSE ---
pt fully a&ox4 at this time, pt able to use phone. pt reports little cocaine prior to arrival. aware.
[2024-07-06 01:07] LABS: Amphetamine Screen Urine Not Detected (Not Detect); Barbiturates, Urine Not Detected (Not Detect); Benzodiazepines Screen Urine Not Detected (Not Detect); Buprenorphine Scr Not Detected (Not Detect); Cannabinoid Screen Urine Not Detected (Not Detect); Cocaine Screen Urine POSITIVE (Not Detect); Fentanyl, urine Not Detected (Not Detect); Methadone Screen, Urine Not Detected (Not Detect); Opiate Screen Urine Not Detected (Not Detect); Oxycodone Screen Urine Not Detected (Not Detect); Phencyclidine Screen Urine Not Detected (Not Detect)
--- NOTE | 2024-07-06 01:48 | PC.NURSE ---
upon discharge pt reporting he is dizzy with chest pain and does not feel safe at home. aware, repeat lab obtained.
[2024-07-06] MEDS: Meclizine HCl 25 MG TABLET 50 MG PO (02:02)
[2024-07-06 02:04] LABS: Troponin-I High Sensitivity 13.8 ng/L (<3.5-35.0)
[2024-07-06 02:09] VITALS: BP 137/85; PULSE 104; RESP 16; TEMP 36.4; O2SAT 99
== END 2024-07-06 02:10 | disposition home or self-care (01) ==
PROVIDERS: Emergency Provider Internal Medicine
DX: R41.82 Altered mental status, unspecified (principal); F14.10 Cocaine abuse, uncomplicated; R11.0 Nausea; I25.10 Atherosclerotic heart disease of native coronary artery without angina pectoris; E11.8 Type 2 diabetes mellitus with unspecified complications; I73.9 Peripheral vascular disease, unspecified; Z79.899 Other long term (current) drug therapy; Z86.718 Personal history of other venous thrombosis and embolism; Z79.01 Long term (current) use of anticoagulants; Z03.818 Encounter for observation for suspected exposure to other biological agents ruled out
CPT/HCPCS: 0241U; 36415; 70450; 80053; 80307; 82947; 84484; 85025; 93005; 96360; 99284; 99285

== ENCOUNTER 2024-09-08 09:58 | Outpatient (AMB) | payer OTHER, SELFPAY ==
[2024-09-08 10:04] VITALS: BP 98/64; PULSE 90; BMI 28.0
--- NOTE | 2024-09-08 10:04 | MHC.OFFVIS ---
Vital Signs 09/08/24 10:04 Height 5 ft 10 in Weight 195 lb BMI 28.0 BP 98/64 Blood Pressure Location Rt brachial Position Sitting Pulse 90 Pulse Source Pulse Oximeter Intake Visit Reasons: T2DM/CONFIRMED Intake Note: Patient presents today for D2MT follow up visit. Last Diabetic Eye exam: 08/25/24 Last Podiatry Visit: Doesn't have one Random Glucose: 159 mg/dl HgA1c: 10.3% Conservation Assistant Required: No Accompanied by: Self / Same As Patient Allergies nicotine Adverse Reaction (Unknown, Verified 09/08/24 10:13) tachycardia, shaking Medication List - Last Reconciled 09/08/24 by Torri Diaz PA-C aspirin 81 mg PO DAILY 90 days atorvastatin 40 mg PO BEDTIME 90 days blood pressure monitor (Blood Pressure Kit) As directed blood sugar diagnostic (FreeStyle Lite Strips) TEST 4 TIMES DAILY blood-glucose meter (FreeStyle Lite Meter kit) As directed [DIABETIC SHOES As directed] enoxaparin (Lovenox) 90 mg (0.9 mL) subcut Q12H gabapentin 200 mg PO BID insulin glargine-yfgn 50 units (0.5 mL) subcut DIRECTED insulin lispro (Admelog SoloStar U-100 Insulin lispro) 10 units (0.1 mL) subcut TID 30 days lancets (FreeStyle Lancets) USE TO TEST 4 TIMES DAILY lisinopril 10 mg PO DAILY 90 days lorazepam 0.5 mg PO BID PRN meclizine 25 mg PO TID PRN metoprolol succinate ER 100 mg PO DAILY 90 days nitroglycerin 0.4 mg sublingual Q5M PRN omeprazole 40 mg PO DAILY 90 days pen needle, diabetic (BD Ultra-Fine Original Pen Needle) Test 3 Times Daily quetiapine 200 mg PO BID [ROLLATOR As directed] [SHOWER CHAIR As directed] trazodone 100 mg PO BEDTIME PRN Ventolin HFA 90 mcg/actuation (albuterol sulfate) 2 puffs PO Q6H PRN NS HPI HPI T2DM/CONFIRMED: Details: Patient is a 64-year-old male with a significant past medical history of hypertension, hyperlipidemia, obesity, previous DVT, substance abuse presenting today for a new patient visit for diabetes. Endo: Dm-A1c today in the office is 10.3. He was diagnosed about 40 years ago. He states he has seen endocrinology and diabetic educators in the past. He is currently on lispro 10 units 3 times a day, Lantus 50 units daily. -he states he was never given pills before. He was diagnosed while hospitalized once when he was diagnosed. He states he is positive he is a type 2 diabetic. He has had labs to confirm this and states that he is positive he is a type 2 diabetic. He states he is not have any history of pancreatitis or injury to the pancreas. No known retinopathy but does have a retinal artery occlusion of the right eye. He states that he had a stroke years ago which resulted in blindness of the right eye. He last saw his cadastral surveyor 2 weeks ago. He does state that at times he will develop hypoglycemia. Over the last few weeks he has noticed his blood sugars have gone into the 70s. Most often in the morning he wakes up in his blood sugars around 200. He usually feels the low blood sugars and does not normally feel any elevated blood sugars. He checks his blood sugars at home at least once a day but is supposed to be testing 4 times a day. He states sometimes he does. He has never had a CGM. He is familiar with them. He was treating hypoglycemic events with soda and rechecking blood sugars 2 hours later. He needs a new referral to relationship mgr. Complications: He has a history of peripheral neuropathy, prior CVA, proteinuria, CKD, CAD. CV: Blood pressure today in the office is 98/64. He is currently taking metoprolol 100 mg, lisinopril 10 mg. He is compliant with atorvastatin 40 mg and takes a daily aspirin. [facility] Medical History Retinal artery branch occlusion of right eye Overweight (BMI 25.0-29.9) Recurrent chest pain Depression Anxiety Chest pain Onychomycosis Smoker Obesity (BMI 30-39.9) Pure hypercholesterolemia Benign essential hypertension Lumbar degenerative disc disease Pelvic pain in male Low back pain Deep vein thrombosis (DVT) of right lower extremity Type 2 diabetes mellitus with other diabetic kidney complication termination clerk current use of insulin Proteinuria Essential hypertension Hyperlipidemia LDL goal <100 PVD (peripheral vascular disease) CAD (coronary artery disease) Hx pulmonary embolism GERD (gastroesophageal reflux disease) 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 COVID-19 virus Sleep apnea Type 2 diabetes mellitus with diabetic polyneuropathy Surgical History Hx of cataract surgery History of esophagogastroduodenoscopy (EGD) H/O colonoscopy History of arthroplasty of left knee History of lumbar surgery History of ankle surgery History of knee surgery History of heart artery stent History of inguinal hernia repair Family History Father Cancer Mother Diabetes Social History Housing: Apartment Alcohol intake: current Alcohol intake frequency: holidays/special occasions only Alcohol type: beer Patient Tobacco Use Status: Current everyday Tobacco user Tobacco use type: Cigarette Cigarettes Per Day: 3 e-Cigarette/Vaping Use: Never Used Second Hand Smoke Exposure: Yes Substance Use Type: Crack/Cocaine Advance Directives Date on File: 03/07/21 service: No Current occupational status: unemployed Cognitive needs: No Hearing needs: No Vision needs: No Physical Exam Vital Signs: Last Vital Signs Pulse 90 09/08/24 10:04 BP 98/64 09/08/24 10:04 BMI result Body Mass Index 28.0 Const Orientation/consciousness: patient oriented x3 Neck Neck: Yes no lymphadenopathy Thyroid: Thyroid normal Carotids: no bruits Resp Auscultation: clear to auscultation bilaterally Cardio Rate: regular rate Rhythm: regular rhythm Heart sounds: S1 normal heart sound present and S2 normal heart sound present Peripheral pulses: dorsalis pedis present Neuro General: patient oriented x3, gait normal and no focal motor deficits Extrem Other: Monofilament sensation not present. Vibratory sensation not present. Skin intact. Toenails thickened. General: Yes normal to inspection Office Procedures Glucose Monitoring Details Details: Provided patient CGM today in office G7 reader and sensor. Applied for patient and paired device. 20042 - Glucose Monitoring, continuous Procedure code (CPT) selection complete Results AMB Hemoglobin A1c AMB Hemoglobin A1c 10.3 % Last Edit by ADITHYA Devries on 09/08/24 10:30 Results Reviewed Results Reviewed: Laboratory Last Values Glucose (Clinic) 159 mg/dL (60-115) H 09/08/24 10:16 Laboratory Tests 07/05/24 09/08/24 23:35 10:19 Sodium 135 Potassium 3.3 Chloride 99 Carbon Dioxide 21 L Anion Gap 18 BUN 15 Creatinine 1.93 H Estim Creat Clear Calc 44.4 Estimated GFR 35 Hgb A1c (Clinic) 10.3 H Assessment & Plan Assessment & Plan (1) Type 2 diabetes mellitus with diabetic polyneuropathy: Code(s): E11.42 - Type 2 diabetes mellitus with diabetic polyneuropathy Category: Medical Qualifiers: Diabetes mellitus intermediate school teacher insulin use: with residential use Qualified Code(s): E11.42 - Type 2 diabetes mellitus with diabetic polyneuropathy; Z79.4 - termination clerk (current) use of insulin Plan: More than 1 hour was spent today in [id number] time reviewing the pathophysiology, the difference between type 1 and type 2 diabetes, signs and symptoms of hyper and hypoglycemia and reviewing complications associated with diabetes, most of which he already has. I provided him a Dexcom G7 today in the office with a reader. I applied the sensor for the patient. I have ordered refills and I pared the reader with the sensor. I showed him how to use the reader and adjusted the settings for him. I will start him on Trulicity. We discussed risks and benefits and adverse effects of this medication including nausea, vomiting, pancreatitis, increased risk of thyroid malignancy. Denies any family history of endocrine cancers. He will continue with his current dosage of the insulins and return for follow up in 1-2 weeks. I have referred him to a relationship mgr. I have referred him to a supermarket manager as well. We reviewed at length signs and symptoms of hypoglycemia that would require emergent medical treatment. Glucagon nasal spray ordered, glucose tabs order to use as needed. Reviewed rule of 15. (2) CKD (chronic kidney disease) stage 3, GFR 30-59 ml/min: Code(s): N18.30 - Chronic kidney disease, stage 3 unspecified Category: Medical Plan: As above. Referral to nephrology placed (3) Benign essential hypertension: Code(s): I10 - Essential (primary) hypertension Category: Medical Plan: Blood pressure is a little on the lower side today. States that he has not had much fluids yet because of the morning appointment. While he was at the ER on 07/06 it was a bit higher. We will recheck in a couple of weeks. Orders: Orders AMB Hemoglobin A1c Today E11.29 - Type 2 diabetes mellitus with other diabetic kidney complication, Z13.9 - Encounter for screening, unspecified Referrals Podiatry Referral E11.42 - Type 2 diabetes mellitus with diabetic polyneuropathy, Z79.4 - alf (current) use of insulin Medications: New glucose (Dex4 Glucose) until symptoms of low blood sugar are controlled 16 grams (4 x 4 gram) PO Q15M PRN 100 tabs 0RF hypoglycemia blood-glucose sensor (Dexcom G7 Sensor device) Use daily As directed to monitor glucose. change q 10 days 3 ea 5RF E11.65 - Type 2 diabetes mellitus with hyperglycemia, Z79.4 - termination clerk (current) use of insulin glucagon 3 mg/actuation 3 mg intranasal ONCE PRN 2 ea 0RF hypoglycemia dulaglutide (Trulicity) 0.75 mg (0.5 mL) subcut QWEEK 2 mL 1RF Coding Level of Care Code New Pt Level 5 (78993) Diagnoses Type 2 diabetes mellitus with diabetic polyneuropathy, with long-term current use of insulin E11.42; Z79.4 Diabetes mellitus residential insulin use: with residential use CKD (chronic kidney disease) stage 3, GFR 30-59 ml/min N18.30 Benign essential hypertension I10 CPT Codes Details - CPT: 54900 - Glucose Monitoring, continuous ([id number])
[2024-09-08 10:20] LABS: Glucose, Whole Blood 159 mg/dL (60-115)
== END 2024-09-08 10:59 | disposition home or self-care (01) ==
PROVIDERS: Visit Provider Physician Assistant
DX: E11.42 Type 2 diabetes mellitus with diabetic polyneuropathy (principal); Z79.4 Long term (current) use of insulin; N18.30 Chronic kidney disease, stage 3 unspecified; I10 Essential (primary) hypertension; Z13.9 Encounter for screening, unspecified; E11.29 Type 2 diabetes mellitus with other diabetic kidney complication

== ENCOUNTER → 2024-09-08 09:58 | Outpatient (BNVA) | payer OTHER, SELFPAY | PROVIDERS: Visit Provider Physician Assistant | DX: E11.42 Type 2 diabetes mellitus with diabetic polyneuropathy (principal); I12.9 Hypertensive chronic kidney disease with stage 1 through stage 4 chronic kidney disease, or unspecified chronic kidney disease; E11.22 Type 2 diabetes mellitus with diabetic chronic kidney disease; N18.30 Chronic kidney disease, stage 3 unspecified; Z79.4 Long term (current) use of insulin; I10 Essential (primary) hypertension | CPT/HCPCS: 82947; 83036; 95250; 99202 ==